=== PATIENT | female | born 1955 | race Caucasian/White ===

== ENCOUNTER 2017-12-06 22:35 | Inpatient (IN) | payer MEDICAID ==
[2017-12-06] MEDS: Sodium Chloride 0.9% 1,000 ML IV SCH (23:29)
[2017-12-07 00:28] LABS: ACETAMINOPHEN 0 ug/mL (10-30)
--- NOTE | 2017-12-07 00:44 | EDM.PDOC ---
ED HPI GENERAL MEDICAL PROBLEM - General Chief Complaint: Drug or Alcohol Abuse Stated Complaint: EN AMBULANCE Time Seen by Provider: 12/06/17 22:46 Source of Information: Reports: Family () History Limitations: Reports: Altered Mental Status - History of Present Illness INITIAL COMMENTS - FREE TEXT/NARRATIVE: The patient is brought to the ED by EMS. The patient's states the patient may be hallucinating. He states that he got home to find the patient looking through their herb cupbord. The patient was not aware that he was there. When he asked her what she was doing, she became angry at him. He then found that the patient was nearly burning something on the stove, and the patient was completely unaware of that, as well. When EMS arrived, they found the patient to be lethargic, with poor respiratory effort. Here in the ED, the patient is lethargic, but arousable to verbal stimuli. She is saturating 96% on room air. The patient's states that the patient was started on 2 new medications, hydrochlorothiazide and Klonopin 0.5 mg, about one week ago. The number of pills remaining in the Klonopin bottle is less than would be expected, suggesting that the patient may be taking her Klonopin in excess of that prescribed. The patient has a well-established history of alcoholism. By the history that the patient's provided, it sounds like the patient has alcoholic cirrhosis, and probably esophageal varices, as well. The patient's acknowledges that he is also a heavy drinker, and that there is always alcohol in the house. The states that he and his work different schedules, therefore he is not sure how much she drinks per day, or whether she drinks to excess regularly, but he suspects that she probably does. The patient's states that the patient entered into inpatient alcohol treatment for approximately one month in mid-2015, then states sober for proximal a 5 months, until around 2015, when she began drinking again, and has continued drinking ever since then. The patient's PCP is Joyce Parish. The patient's states that the patient sees a Psychological Operations (possible Kettle Coordinator) in [place], but he does not know that doctor's name. Treatments RECONCILER: Reports: Other (see below) Other Treatments RECONCILER: iv lock start by ambulance - Related Data Allergies Allergy/AdvReac Type Severity Reaction Status Date / Time nitrofurantoin Allergy Rash Verified 12/07/17 13:31 [From Macrobid] nitrofurantoin Allergy Rash Verified 12/07/17 13:31 macrocrystalline [From Macrobid] codeine AdvReac Upset Verified 12/08/17 11:36 Stomach Home Meds: Home Meds Folic Acid 1 mg PO DAILY 10/04/15 [History] Omeprazole 20 mg PO BIDAC 10/04/15 [History] Potassium Chloride 20 meq PO BID 10/04/15 [History] Venlafaxine HCl [Venlafaxine ER] 150 mg PO DAILY 10/04/15 [History] Aspirin 81 mg PO DAILY 12/07/17 [History] Betamethasone Dipropionate [Diprosone 0.05% Crm] 0 gm TOP BID PRN 12/07/17 [ History] Eszopiclone [Lunesta] 2 mg PO BEDTIME PRN 12/07/17 [History] Hydrochlorothiazide 25 mg PO DAILY 12/07/17 [History] Nadolol [Corgard] 40 mg PO DAILY 12/07/17 [History] Rifaximin [Xifaxan] 550 mg PO BID 12/07/17 [History] Triamcinolone Acetonide [Triamcinolone Acetonide 0.1% Crm] 15 gm .XX DAILY 12/07 [History] Azithromycin [Zithromax] 250 mg PO DAILY #4 ml 12/08/17 [Rx] Biotin/FA/Vit C/Vit B Complex [Nephrocaps] 1 tab PO DAILY #30 tablet 12/08/17 [ Rx] Lactulose [Cephulac] 30 gm PO DAILY #480 ml 12/08/17 [Rx] Magnesium Oxide 400 mg PO BID #60 tablet 12/08/17 [Rx] Nicotine [NTS] 1 each TD DAILY #30 patch.td24 12/08/17 [Rx] Sucralfate [Carafate] 1 gm PO QIDACANDBED #480 ml 12/08/17 [Rx] Thiamine [Vitamin B-1] 100 mg PO DAILY #30 tablet 12/08/17 [Rx] Past Medical History HEENT History: Reports: Cataract Cardiovascular History: Reports: Hypertension Gastrointestinal History: Reports: Cirrhosis (alcoholic), Pancreatitis, Other ( See Below) (Esophageal varices) Genitourinary History: Reports: Urinary Incontinence Psychiatric History: Reports: Addiction (alcohol), Anxiety Hematologic History: Reports: Anemia, Iron Deficiency - Past Surgical History GI Surgical History: Reports: Colonoscopy, EGD, Other (See Below) (Banding of esophageal varices. 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 - Physical Exam Exam: See Below Exam Limited By: Altered Mental Status General Appearance: No Apparent Distress, Thin, Other (No smell of alcohol notes ) Eye Exam: Bilateral Eye: Normal Inspection Ears: Normal External Exam, Hearing Grossly Normal Nose: Normal Inspection, No Blood Throat/Mouth: Normal Inspection, Normal Lips, Normal Voice, No Airway Compromise Head Exam: Atraumatic, Normocephalic Neck: Normal Inspection, Full Range of Motion Respiratory/Chest: No Respiratory Distress, Lungs Clear, Normal Breath Sounds ( minimal effort at deep breaths when asked), No Accessory Muscle Use Cardiovascular: Normal Peripheral Pulses, Regular Rate, Rhythm, No Edema, No Gallop, No JVD, No Murmur, No Rub GI/Abdominal: Normal Bowel Sounds, Soft, Non-Tender, No Organomegaly, No Distention, No Abnormal Bruit, No Mass (Female) Exam: Deferred Rectal (Female) Exam: Deferred Neuro Exam (Abbreviated): Other (Lethargic, but arousable to verbal stimuli. Nose her name, but perseverates her birthday when asked what day it is, what month it is, what year it is, currently. Moves all 4 extremities spontaneously.) Extremities: Normal Inspection, Normal Range of Motion, No Pedal Edema, Normal Capillary Refill Psychiatric: Other (Unable to assess) Skin Exam: Warm, Dry, Intact, Normal Color, No Rash Course - Vital Signs Last Recorded V/S: Last Vital Signs Temp 36.8 C 12/08/17 12:04 Pulse 73 12/08/17 12:04 Resp 16 12/08/17 12:04 BP 116/83 12/08/17 12:04 Pulse Ox 99 12/08/17 12:04 - Orders/Labs/Meds Labs: Laboratory Tests 12/06/17 12/06/17 12/06/17 Range/Units 23:21 23:40 23:40 WBC 5.16 (3.98-10.04) K/mm3 RBC 4.14 (3.98-5.22) M/mm3 Hgb 14.1 (11.2-15.7) gm/L Hct 41.0 (34.1-44.9) % MCV 99.0 H (79.4-94.8) fl MCH 34.1 H (25.6-32.2) pg MCHC 34.4 (32.2-35.5) g/dl RDW Std Deviation 46.4 H (36.4-46.3) fL Plt Count 120 L (182-369) K/mm3 MPV 10.5 (9.4-12.3) fl Neutrophils % (Manual) 60 (40-60) % Band Neutrophils % 0 (0-10) % Lymphocytes % (Manual) 25 (20-40) % Atypical Lymphs % 0 % Monocytes % (Manual) 10 (2-10) % Eosinophils % (Manual) 5 (0.7-5.8) % Basophils % (Manual) 0 L (0.1-1.2) Platelet Estimate Adequate Plt Morphology Comment Normal RBC Morph Comment Normal PT (8.0-13.0) SECONDS INR APTT (22-36) SECONDS Puncture Site Lt radial ABG pH 7.47 H (7.35-7.45) ABG pCO2 27.2 L (35.0-45.0) mmHg ABG pO2 65.0 L (80.0-100.0) mmHg ABG HCO3 19.3 L (22.0-26.0) meq/L ABG O2 Saturation 94.2 L (96.0-97.0) % ABG Base Excess -2.7 L (-2-2.0) Reuben Test Positive Sodium 136 (136-145) mEq/L Potassium 3.6 (3.5-5.1) mEq/L Chloride 104 (98-107) mEq/L Carbon Dioxide 21 (21-32) mEq/L Anion Gap 14.6 (5-15) BUN 15 (7-18) mg/dL Creatinine 0.8 (0.55-1.02) mg/dL Est Cr Clr Drug Dosing 59.75 mL/min Estimated GFR (MDRD) > 60 (>60) mL/min BUN/Creatinine Ratio 18.8 H (14-18) Glucose 107 (80-115) mg/dL Serum Osmolality 289 (280-300) mosm/kg Lactic Acid (0.4-2.0) mmol/L Calcium 9.9 (8.5-10.1) mg/dL Magnesium 1.1 L (1.8-2.4) mg/dl Total Bilirubin 1.7 H (0.2-1.0) mg/dL AST 67 H (15-37) U/L ALT 59 (14-59) U/L Alkaline Phosphatase 134 H (46-116) U/L Ammonia (11-32) umol/L Troponin I < 0.017 (0.00-0.056) ng/mL Total Protein 7.9 (6.4-8.2) g/dl Albumin 3.6 (3.4-5.0) g/dl Globulin 4.3 gm/dL Albumin/Globulin Ratio 0.8 L (1-2) Lipase 186 (73-393) U/L TSH 3rd Generation 1.089 (0.358-3.74) uIU/mL Urine Color (Yellow) Urine Appearance (Clear) Urine pH (5.0-8.0) Ur Specific [place] (1.005-1.030) Urine Protein (Negative) Urine Glucose (UA) (Negative) Urine Ketones (Negative) Urine Occult Blood (Negative) Urine Nitrite (Negative) Urine Bilirubin (Negative) Urine Urobilinogen (0.2-1.0) Ur Leukocyte Esterase (Negative) Urine RBC (0-5) /hpf Urine WBC (0-5) /hpf Ur Epithelial Cells (0-5) /hpf Urine Bacteria (FEW) /hpf Hyaline Casts (0-5) /lpf Urine Mucus (FEW) /hpf Salicylates (2.8-20) mg/dL Urine Opiates Screen (NEGATIVE) Ur Buprenorphine Scrn (NEGATIVE) Ur Oxycodone Screen (NEGATIVE) Urine Methadone Screen (NEGATIVE) Ur Propoxyphene Screen (NEGATIVE) Acetaminophen 0 L (10-30) ug/mL Ur Barbiturates Screen (NEGATIVE) Ur Tricyclics Screen (NEGATIVE) Ur Phencyclidine Scrn (NEGATIVE) Ur Amphetamine Screen (NEGATIVE) U Methamphetamines Scrn (NEGATIVE) U Benzodiazepines Scrn (NEGATIVE) U Cocaine Metab Screen (NEGATIVE) U Marijuana (THC) Screen (NEGATIVE) Ethyl Alcohol 0.00 (0.00) gm% 12/06/17 12/06/17 12/06/17 Range/Units 23:40 23:40 23:40 WBC (3.98-10.04) K/mm3 RBC (3.98-5.22) M/mm3 Hgb (11.2-15.7) gm/L Hct (34.1-44.9) % MCV (79.4-94.8) fl MCH (25.6-32.2) pg MCHC (32.2-35.5) g/dl RDW Std Deviation (36.4-46.3) fL Plt Count (182-369) K/mm3 MPV (9.4-12.3) fl Neutrophils % (Manual) (40-60) % Band Neutrophils % (0-10) % Lymphocytes % (Manual) (20-40) % Atypical Lymphs % % Monocytes % (Manual) (2-10) % Eosinophils % (Manual) (0.7-5.8) % Basophils % (Manual) (0.1-1.2) Platelet Estimate Plt Morphology Comment RBC Morph Comment PT 11.7 (8.0-13.0) SECONDS INR 1.09 APTT 29 (22-36) SECONDS Puncture Site ABG pH (7.35-7.45) ABG pCO2 (35.0-45.0) mmHg ABG pO2 (80.0-100.0) mmHg ABG HCO3 (22.0-26.0) meq/L ABG O2 Saturation (96.0-97.0) % ABG Base Excess (-2-2.0) Reuben Test Sodium (136-145) mEq/L Potassium (3.5-5.1) mEq/L Chloride (98-107) mEq/L Carbon Dioxide (21-32) mEq/L Anion Gap (5-15) BUN (7-18) mg/dL Creatinine (0.55-1.02) mg/dL Est Cr Clr Drug Dosing mL/min Estimated GFR (MDRD) (>60) mL/min BUN/Creatinine Ratio (14-18) Glucose (80-115) mg/dL Serum Osmolality (280-300) mosm/kg Lactic Acid 1.4 (0.4-2.0) mmol/L Calcium (8.5-10.1) mg/dL Magnesium (1.8-2.4) mg/dl Total Bilirubin (0.2-1.0) mg/dL AST (15-37) U/L ALT (14-59) U/L Alkaline Phosphatase (46-116) U/L Ammonia (11-32) umol/L Troponin I (0.00-0.056) ng/mL Total Protein (6.4-8.2) g/dl Albumin (3.4-5.0) g/dl Globulin gm/dL Albumin/Globulin Ratio (1-2) Lipase (73-393) U/L TSH 3rd Generation (0.358-3.74) uIU/mL Urine Color (Yellow) Urine Appearance (Clear) Urine pH (5.0-8.0) Ur Specific [place] (1.005-1.030) Urine Protein (Negative) Urine Glucose (UA) (Negative) Urine Ketones (Negative) Urine Occult Blood (Negative) Urine Nitrite (Negative) Urine Bilirubin (Negative) Urine Urobilinogen (0.2-1.0) Ur Leukocyte Esterase (Negative) Urine RBC (0-5) /hpf Urine WBC (0-5) /hpf Ur Epithelial Cells (0-5) /hpf Urine Bacteria (FEW) /hpf Hyaline Casts (0-5) /lpf Urine Mucus (FEW) /hpf Salicylates < 0.2 L (2.8-20) mg/dL Urine Opiates Screen (NEGATIVE) Ur Buprenorphine Scrn (NEGATIVE) Ur Oxycodone Screen (NEGATIVE) Urine Methadone Screen (NEGATIVE) Ur Propoxyphene Screen (NEGATIVE) Acetaminophen (10-30) ug/mL Ur Barbiturates Screen (NEGATIVE) Ur Tricyclics Screen (NEGATIVE) Ur Phencyclidine Scrn (NEGATIVE) Ur Amphetamine Screen (NEGATIVE) U Methamphetamines Scrn (NEGATIVE) U Benzodiazepines Scrn (NEGATIVE) U Cocaine Metab Screen (NEGATIVE) U Marijuana (THC) Screen (NEGATIVE) Ethyl Alcohol (0.00) gm% 12/06/17 12/06/17 12/07/17 Range/Units 23:49 23:53 01:10 WBC (3.98-10.04) K/mm3 RBC (3.98-5.22) M/mm3 Hgb (11.2-15.7) gm/L Hct (34.1-44.9) % MCV (79.4-94.8) fl MCH (25.6-32.2) pg MCHC (32.2-35.5) g/dl RDW Std Deviation (36.4-46.3) fL Plt Count (182-369) K/mm3 MPV (9.4-12.3) fl Neutrophils % (Manual) (40-60) % Band Neutrophils % (0-10) % Lymphocytes % (Manual) (20-40) % Atypical Lymphs % % Monocytes % (Manual) (2-10) % Eosinophils % (Manual) (0.7-5.8) % Basophils % (Manual) (0.1-1.2) Platelet Estimate Plt Morphology Comment RBC Morph Comment PT (8.0-13.0) SECONDS INR APTT (22-36) SECONDS Puncture Site ABG pH (7.35-7.45) ABG pCO2 (35.0-45.0) mmHg ABG pO2 (80.0-100.0) mmHg ABG HCO3 (22.0-26.0) meq/L ABG O2 Saturation (96.0-97.0) % ABG Base Excess (-2-2.0) Reuben Test Sodium (136-145) mEq/L Potassium (3.5-5.1) mEq/L Chloride (98-107) mEq/L Carbon Dioxide (21-32) mEq/L Anion Gap (5-15) BUN (7-18) mg/dL Creatinine (0.55-1.02) mg/dL Est Cr Clr Drug Dosing mL/min Estimated GFR (MDRD) (>60) mL/min BUN/Creatinine Ratio (14-18) Glucose (80-115) mg/dL Serum Osmolality (280-300) mosm/kg Lactic Acid (0.4-2.0) mmol/L Calcium (8.5-10.1) mg/dL Magnesium (1.8-2.4) mg/dl Total Bilirubin (0.2-1.0) mg/dL AST (15-37) U/L ALT (14-59) U/L Alkaline Phosphatase (46-116) U/L Ammonia 83 H (11-32) umol/L Troponin I (0.00-0.056) ng/mL Total Protein (6.4-8.2) g/dl Albumin (3.4-5.0) g/dl Globulin gm/dL Albumin/Globulin Ratio (1-2) Lipase (73-393) U/L TSH 3rd Generation (0.358-3.74) uIU/mL Urine Color Yellow (Yellow) Urine Appearance Clear (Clear) Urine pH 7.0 (5.0-8.0) Ur Specific [place] 1.020 (1.005-1.030) Urine Protein Negative (Negative) Urine Glucose (UA) Negative (Negative) Urine Ketones Negative (Negative) Urine Occult Blood Negative (Negative) Urine Nitrite Negative (Negative) Urine Bilirubin Negative (Negative) Urine Urobilinogen 1.0 (0.2-1.0) Ur Leukocyte Esterase Trace H (Negative) Urine RBC 0-5 (0-5) /hpf Urine WBC 0-5 (0-5) /hpf Ur Epithelial Cells 0-5 (0-5) /hpf Urine Bacteria Occasional (FEW) /hpf Hyaline Casts 0-5 (0-5) /lpf Urine Mucus Not seen (FEW) /hpf Salicylates (2.8-20) mg/dL Urine Opiates Screen Negative (NEGATIVE) Ur Buprenorphine Scrn Negative (NEGATIVE) Ur Oxycodone Screen Negative (NEGATIVE) Urine Methadone Screen Negative (NEGATIVE) Ur Propoxyphene Screen Negative (NEGATIVE) Acetaminophen (10-30) ug/mL Ur Barbiturates Screen Negative (NEGATIVE) Ur Tricyclics Screen Negative (NEGATIVE) Ur Phencyclidine Scrn Negative (NEGATIVE) Ur Amphetamine Screen Negative (NEGATIVE) U Methamphetamines Scrn Negative (NEGATIVE) U Benzodiazepines Scrn Negative (NEGATIVE) U Cocaine Metab Screen Negative (NEGATIVE) U Marijuana (THC) Screen Negative (NEGATIVE) Ethyl Alcohol (0.00) gm% Meds: Medications Discontinued Medications Generic Name Dose Route Start Last Admin Trade Name Freq PRN Reason Stop Dose Admin Albuterol/Ipratropium 3 ml 12/07/17 09:49 Duoneb 3.0-0.5 Mg/3 Ml NEB Q4H PRN Shortness Of Breath/wheezing Azithromycin 500 mg 12/08/17 09:00 12/08/17 09:03 Zithromax PO 500 mg DAILY BIANCA Administration Enoxaparin Sodium 30 mg 12/07/17 08:45 12/07/17 09:37 Lovenox SUBCUT 30 mg Q24H BIANCA Administration Enoxaparin Sodium 40 mg 12/08/17 09:00 12/08/17 09:03 Lovenox SUBCUT 40 mg DAILY BIANCA Administration Folic Acid 1 mg 12/07/17 10:00 12/08/17 09:03 Folic Acid PO 1 mg DAILY BIANCA Administration Hydralazine HCl 20 mg 12/07/17 10:00 Apresoline IVPUSH Q6H PRN Hypertension Hydrochlorothiazide 25 mg 12/08/17 09:00 12/08/17 09:02 Hydrochlorothiazide PO 25 mg DAILY BIANCA Administration Sodium Chloride 1,000 mls @ 150 mls/hr 12/06/17 23:30 12/07/17 06:10 Normal Saline IV Infused ASDIRECTED BIANCA Infusion Magnesium Sulfate 2 gm/ Premix 50 mls @ 50 mls/hr 12/07/17 00:50 12/07/17 01: 11 IV 12/07/17 01:49 50 mls/hr ONETIME ONE Administration Magnesium Sulfate 2 gm/ Premix 50 mls @ 25 mls/hr 12/07/17 03:25 12/07/17 10: 11 IV 12/07/17 05:24 Not Given ONETIME ONE Magnesium Sulfate Confirm 12/07/17 03:32 12/07/17 10:11 Magnesium Sulfate 2 Gm In Water 50 Ml Administered 12/07/17 03:33 Not Given Dose 50 mls @ as directed .ROUTE .STK-MED ONE Sodium Chloride 1,000 mls @ 75 mls/hr 12/07/17 10:00 Normal Saline IV ASDIRECTED BIANCA Sodium Chloride 1,000 mls @ 35 mls/hr 12/07/17 10:00 12/07/17 17:41 Normal Saline IV 35 mls/hr ASDIRECTED BIANCA Administration Magnesium Sulfate 2 gm/ Premix 50 mls @ 25 mls/hr 12/08/17 06:45 12/08/17 09: 11 IV 12/08/17 08:44 25 mls/hr Q1H BIANCA Administration Influenza Virus Vaccine 1 each 12/08/17 11:29 12/08/17 13:51 Pharmacy To Dose - Influenza Vaccine IM 12/08/17 11:30 Not Given ONETIME ONE Influenza Virus Vaccine 60 mcg 12/08/17 12:15 12/08/17 11:54 Flulaval Quad [id number] IM 12/08/17 12:16 60 mcg .ONCE ONE Administration Lactulose 30 gm 12/07/17 09:00 12/08/17 09:03 Cephulac PO 30 gm BID BIANCA Administration Lorazepam 0 mg 12/07/17 09:54 Ativan IVPUSH Q4H PRN withdrawl Protocol Lorazepam 2 mg 12/07/17 10:00 Ativan IVPUSH Q4H PRN Seizures Magnesium Oxide 800 mg 12/08/17 21:00 Magnesium Oxide PO DAILY [facility] Miscellaneous Information 0 ea 12/08/17 11:30 12/08/17 13:52 Remove Patch TRDERM Not Given Q24H [facility] Nadolol 20 mg 12/08/17 09:00 12/08/17 09:04 Naldol PO 20 mg DAILY BIAN[facility] Administration Nicotine 21 mg 12/07/17 11:30 12/08/17 13:51 Habitrol TRDERM Not Given Q24H [facility] Ondansetron HCl 4 mg 12/07/17 09:49 Zofran Odt PO Q4H PRN nausea, able to take PO Ondansetron HCl 4 mg 12/07/17 09:49 Zofran IV Q4H PRN Nausea/Vomiting Oxycodone HCl 5 mg 12/07/17 09:49 Oxycodone PO Q4H PRN Pain (moderate 4-6) Pantoprazole Sodium 40 mg 12/07/17 09:00 12/08/17 09:02 Protonix PO 40 mg DAILY BIANCA Administration Pantoprazole Sodium 40 mg 12/07/17 10:00 12/08/17 09:57 Protonix PO Not Given DAILY [facility] Potassium Chloride 40 meq 12/07/17 17:00 12/07/17 17:38 Klor-Con M20 PO 12/07/17 17:01 40 meq ONETIME ONE Administration Potassium Chloride 20 meq 12/08/17 09:00 12/08/17 09:02 Klor-Con M20 PO 20 meq BID BIANCA Administration Rifaximin 550 mg 12/07/17 21:00 12/08/17 09:02 Xifaxan PO 550 mg BID [facility] Administration Sucralfate 1 gm 12/07/17 11:00 12/08/17 11:53 Carafate PO 1 gm QIDACANDBED [facility] Administration Temazepam 7.5 mg 12/07/17 09:49 Restoril PO BEDTIME PRN Sleep Thiamine HCl 100 mg 12/07/17 10:00 12/08/17 09:02 Vitamin B-1 PO 100 mg DAILY BIANCA Administration Tramadol HCl 50 mg 12/07/17 09:57 Ultram PO Q4H PRN Pain Venlafaxine HCl 150 mg 12/07/17 10:00 12/08/17 09:01 Effexor Xr PO 150 mg DAILY [facility] Administration Vitamin B Complex/Vit C/Folic Acid 1 tab 12/07/17 10:00 12/08/17 09:01 Nephrocaps PO 1 tab DAILY [facility] Administration - Re-Assessments/Exams Free Text/Narrative Re-Assessment/Exam: 12/07/17 00:24 Portable chest radiograph appears to be grossly unremarkable. Cardiac silhouette is within normal limits. No pulmonary vascular congestion. No pleural effusions. No focal infiltrate. No pneumothorax. Hyperinflation likely. Lateral breast implants noted. Formal read per the Radiologist pending. 12/07/17 00:40 CT of the head without contrast is read by [facility] as "No acute findings." 12/07/17 00:56 The urine osmolality and microscopic portion of the urinalysis are still pending. The patient's alcohol level is zero. Neither methanol nor ethylene glycol ingestion are suspected, as the patient does not have a high anion gap. Isopropyl alcohol poisoning is not suspected, as she does not have ketonuria. The patient's ABG demonstrates an [id number] respiratory alkalosis versus mixed respiratory alkalosis and metabolic acidosis, but salicylate overdose is not suspected, as the patient's salicylate level is undetectable. The patient's urine drug screen is negative, including for benzodiazepines, however, based on history, the patient is likely taking her prescribed Klonopin in excess. Klonopin does not show up on the benzodiazepine urine drug screen, therefore this is still likely. The patient's magnesium level returned low at 1.1. I have ordered a 2 g Mg- rider. 12/07/17 01:20 The patient's urine osmolality is normal at 289, and the urinalysis does not report oxalate crystals. 12/07/17 01:37 The patient's ammonia level is elevated at 83, indicating that hepatic encephalopathy may be playing at least some role in the patient's altered mental status. I don't believe that the patient is fit to go home. I would like to admit her to the hospital for altered mental status, likely clonazepam excess, hepatic encephalopathy, and hypomagnesemia. 12/07/17 0:[address] Bass at 01:45. She agrees to admit the patient to the medical floor. Departure - Departure Time of Disposition: 01:50 Disposition: Admitted As Inpatient 67 Clinical Impression: Hepatic encephalopathy, Hypomagnesemia Accidental clonazepam overdose Qualifiers: Encounter type: initial encounter Qualified Code(s): T42.4X1A - Poisoning by benzodiazepines, accidental (unintentional), initial encounter - Discharge Information
[2017-12-07] MEDS ORDERED: Magnesium Sulfate/Water 2 GM in Premix Bag 1 BAG IV ONE ×2 (00:50→03:25)
[2017-12-07] MEDS ORDERED: Magnesium Sulfate/Water 50 ML ONE (03:32)
--- NOTE | 2017-12-07 07:15 | CT ---
Head CT Technique: Multiple axial sections through the brain were obtained. Comparison: Prior head CT exam of 10/04/15. Findings: Ventricles along with basal cisterns and sulci over the convexities are mildly prominent. No abnormal parenchymal densities are seen. No evidence of intracranial hemorrhage. No midline shift or mass effect is seen. Large pineal calcification is seen which is stable and is felt to be incidental. Bone window settings were reviewed which show the visualized sinuses to appear clear. No acute calvarial abnormality is identified. Impression: 1. Incidental findings. Nothing acute is seen on noncontrast head CT study. Diagnostic code #2 I agree with preliminary report issued by [facility] ([facility] preliminary report dictated on 12/07/17, 1:18 AM Central Time)
--- NOTE | 2017-12-07 07:15 | CR ---
Chest: Portable view of the chest was obtained. Comparison: Prior chest x-ray of 10/04/[address] of 10/04/15. Increased density is identified overlying both lower lungs compatible with overlying density from calcified breast prosthesis. Lungs are clear with no acute parenchymal change. Heart size and mediastinum are normal. Bony structures are osteopenic. Impression: 1. Nothing acute is seen on portable chest x-ray. Diagnostic code #2
[2017-12-07] MEDS ORDERED: Enoxaparin 30 MG/0.3 ML Syringe SUBCUT SCH (08:45)
[2017-12-07] MEDS: Pantoprazole 40 MG Tab.CR PO SCH ×2 (09:37→12:15)
[2017-12-07] MEDS: Lactulose Soln 10 GM/15 ML 30 ML UD Cup PO SCH ×2 (09:37→22:03)
[2017-12-07] MEDS: Sodium Chloride 0.9% 1,000 ML IV SCH (09:42)
--- NOTE | 2017-12-07 09:44 | PCM.HP ---
H&P History of Present Illness - General Date of Service: 12/07/17 Admit Problem/Dx: Admission Diagnosis/Problem Admission Diagnosis/Problem Hepatic encephalopathy Source of Information: Patient, Other (ED notes) History Limitations: Reports: Altered Mental Status - History of Present Illness Initial Comments - Free Text/Narative: Halina is a 62-year-old female patient who presented to the emergency room last evening for altered mental status. Ammonia level was elevated and she was found to be with hepatic encephalopathy. She was also found to have electrolyte abnormalities of hypomagnesemia and hypokalemia. She and her tell me that she has felt ill or not herself for at least 2 weeks. She states she has been mostly in bed for the past 2 weeks and she has been "so sleepy"and generally weak. She does take Klonopin at least twice a day on a regular basis and has been continuing to take this despite her altered mental status for the past 2 weeks. Her reports that yesterday was the worst and she was not as responsive so she came for evaluation in the emergency department. Patient reports she has not really been able to work for the last 2 weeks. 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 She does have long-standing history of alcoholic liver disease. Admits to me that she drinks 5-7 [employer] sevens, large cups, every day for years. She does have a GI specialist in [place] but she has not seen him for quite some time, does not have regular follow-up. She states she has had a liver biopsy 2 years ago with them. She also had a EGD with banding of esophageal varices around 2 years ago. She reports she supposed to have repeat EGD but has not done so yet. She does take rifaximin daily but does not take lactulose she has not ever taken lactulose by her report or that she remembers. She has been anemic in the past found due to the esophageal varices. She's not noted any melanotic stool no nausea, vomiting, diarrhea, no hematemesis or hematochezia. 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 She is very thin almost cachectic. She tells me she has been to inpatient treatment once around 2 years ago in [place] and has also done outpatient treatment for her alcoholism. She also smokes half a pack of cigarettes per day for many years. PCP is Joyce DORADO with [facility] in [place]. Patient is full CODE STATUS. Onset of Symptoms: Reports: Gradual Duration of Symptoms: Reports: Week(s): (2) - Related Data Allergies/Adverse Reactions: Allergies Allergy/AdvReac Type Severity Reaction Status Date / Time codeine Allergy Upset Verified 12/07/17 13:31 Stomach nitrofurantoin Allergy Rash Verified 12/07/17 13:31 [From Macrobid] nitrofurantoin Allergy Rash Verified 12/07/17 13:31 macrocrystalline [From Macrobid] Home Medications: Home Meds Folic Acid 1 mg PO DAILY 10/04/15 [History] Omeprazole 20 mg PO BIDAC 10/04/15 [History] Potassium Chloride 20 meq PO BID 10/04/15 [History] Venlafaxine HCl [Venlafaxine ER] 150 mg PO DAILY 10/04/15 [History] Aspirin 81 mg PO DAILY 12/07/17 [History] Betamethasone Dipropionate [Diprosone 0.05% Crm] 0 gm TOP BID PRN 12/07/17 [ History] ClonazePAM [KlonoPIN] 0.5 mg PO DAILY 12/07/17 [History] ClonazePAM [KlonoPIN] 1 mg PO DAILY 12/07/17 [History] Eszopiclone [Lunesta] 2 mg PO BEDTIME PRN 12/07/17 [History] Hydrochlorothiazide 25 mg PO DAILY 12/07/17 [History] Nadolol [Corgard] 40 mg PO DAILY 12/07/17 [History] Rifaximin [Xifaxan] 550 mg PO BID 12/07/17 [History] Triamcinolone Acetonide [Triamcinolone Acetonide 0.1% Crm] 15 gm .XX DAILY 12/07 [History] Past Medical History HEENT History: Reports: Cataract Cardiovascular History: Reports: Hypertension Gastrointestinal History: Reports: Gastritis, Pancreatitis Other Gastrointestinal History: Alcoholic liver disease. Esophageal varices with banding - 2016 Genitourinary History: Reports: Urinary Incontinence Psychiatric History: Reports: Addiction (alcohol, tobacco), Anxiety Hematologic History: Reports: Anemia, Iron Deficiency - Past Surgical History GI Surgical History: Reports: Colonoscopy, Other (See Below) (EGD with banding of esophageal barices- 2016) Social & Family History - Tobacco Use Smoking Status *Q: Current Every Day Smoker Tobacco Use Within Last Twelve Months: Cigarettes Years of Tobacco use: 40 Packs/Tins Daily: 0.5 Smoking Cessation Information Provided To Patient: Yes - Caffeine Use Caffeine Use: Reports: Coffee, Tea - Alcohol Use Days Per Week of Alcohol Use: 7 Number of Drinks Per Day: 8 Total Drinks Per Week: 56 Alcohol Use in Last Twelve Months: Yes Alcohol Use Frequency: Daily Alcohol Use Comment: Has been to inpatient treatment in 2016 in [place]. Has tried outpatient treatment also - Recreational Drug Use Recreational Drug Use: No - Living Situation & Occupation Living situation: Reports: , with Spouse H&P Review of Systems - Review of Systems: Review Of Systems: See Below General: Reports: Malaise, Weakness, Fatigue, Decreased Appetite. Denies: Fever , Chills HEENT: Reports: No Symptoms Pulmonary: Reports: No Symptoms, Cough (has chronic smokers cough) Cardiovascular: Reports: No Symptoms. Denies: Chest Pain, Palpitations, Dyspnea on Exertion Gastrointestinal: Reports: No Symptoms, Decreased Appetite. Denies: Abdominal Pain, Black Stool, Bloody Stool, Constipation, Diarrhea, Hematemesis, Hematochezia, Melena, Nausea, Vomiting Genitourinary: Reports: No Symptoms Musculoskeletal: Reports: Other (generalized muscle weakness) Psychiatric: Reports: Confusion Neurological: Reports: Confusion, Headache, Weakness Exam - Exam Exam: See Below - Vital Signs Vital Signs: Last Vital Signs Temp 97.4 F 12/06/17 22:42 Pulse 88 12/06/17 22:42 Resp 12 12/06/17 22:42 BP 169/95 H 12/06/17 22:42 Pulse Ox 96 12/06/17 22:42 Weight: 113 lb - Exam Quality Assessment: DVT Prophylaxis General: Alert, Oriented (x3), Cooperative HEENT: Conjunctiva Clear, EOMI, Hearing Intact, Mucosa Moist & [place], Pupils Equal, Pupils Reactive, PERRLA. No: Scleral Icterus Neck: Supple Lungs: Clear to Auscultation, Normal Respiratory Effort, Decreased Breath Sounds (mid to lower lobes) Cardiovascular: Regular Rate, Regular Rhythm, Normal S1, Normal S2 GI/Abdominal Exam: Normal Bowel Sounds, Soft, Non-Tender, No Distention ( minimal to upper abdomen). No: No Abnormal Bruit, No Mass, Guarding, Rigid, Rebound, Tender (Female) Exam: Deferred Rectal (Female) Exam: Deferred Extremities: No Pedal Edema, Normal Capillary Refill, Other (thin and with muscle wasting to extremities) Peripheral Pulses: 1+: Dorsalis Pedis (L), Dorsalis Pedis (R) Skin: Warm, Dry Neuro Extensive - Mental Status: Alert, Oriented x3, Normal Mood/Affect ( converses well, good eye contact), Normal Cognition. No: Memory Intact (short term memory of the last 2 weeks is poor) Psychiatric: Alert, Normal Affect, Normal Mood - Patient Data Lab Results Last 24 hrs: Laboratory Results - last 24 hr 12/06/17 12/06/17 12/06/17 Range/Units 23:21 23:40 23:40 WBC 5.16 (3.98-10.04) K/mm3 RBC 4.14 (3.98-5.22) M/mm3 Hgb 14.1 (11.2-15.7) gm/L Hct 41.0 (34.1-44.9) % MCV 99.0 H (79.4-94.8) fl MCH 34.1 H (25.6-32.2) pg MCHC 34.4 (32.2-35.5) g/dl RDW Std Deviation 46.4 H (36.4-46.3) fL Plt Count 120 L (182-369) K/mm3 MPV 10.5 (9.4-12.3) fl Neutrophils % (Manual) 60 (40-60) % Band Neutrophils % 0 (0-10) % Lymphocytes % (Manual) 25 (20-40) % Atypical Lymphs % 0 % Monocytes % (Manual) 10 (2-10) % Eosinophils % (Manual) 5 (0.7-5.8) % Basophils % (Manual) 0 L (0.1-1.2) Platelet Estimate Adequate Plt Morphology Comment Normal RBC Morph Comment Normal PT (8.0-13.0) SECONDS INR APTT (22-36) SECONDS Puncture Site Lt radial ABG pH 7.47 H (7.35-7.45) ABG pCO2 27.2 L (35.0-45.0) mmHg ABG pO2 65.0 L (80.0-100.0) mmHg ABG HCO3 19.3 L (22.0-26.0) meq/L ABG O2 Saturation 94.2 L (96.0-97.0) % ABG Base Excess -2.7 L (-2-2.0) Reuben Test Positive Sodium 136 (136-145) mEq/L Potassium 3.6 (3.5-5.1) mEq/L Chloride 104 (98-107) mEq/L Carbon Dioxide 21 (21-32) mEq/L Anion Gap 14.6 (5-15) BUN 15 (7-18) mg/dL Creatinine 0.8 (0.55-1.02) mg/dL Est Cr Clr Drug Dosing 59.75 mL/min Estimated GFR (MDRD) > 60 (>60) mL/min BUN/Creatinine Ratio 18.8 H (14-18) Glucose 107 (80-115) mg/dL Serum Osmolality 289 (280-300) mosm/kg Lactic Acid (0.4-2.0) mmol/L Calcium 9.9 (8.5-10.1) mg/dL Magnesium 1.1 L (1.8-2.4) mg/dl Total Bilirubin 1.7 H (0.2-1.0) mg/dL AST 67 H (15-37) U/L ALT 59 (14-59) U/L Alkaline Phosphatase 134 H (46-116) U/L Ammonia (11-32) umol/L Troponin I < 0.017 (0.00-0.056) ng/mL Total Protein 7.9 (6.4-8.2) g/dl Albumin 3.6 (3.4-5.0) g/dl Globulin 4.3 gm/dL Albumin/Globulin Ratio 0.8 L (1-2) Lipase 186 (73-393) U/L TSH 3rd Generation 1.089 (0.358-3.74) uIU/mL Urine Color (Yellow) Urine Appearance (Clear) Urine pH (5.0-8.0) Ur Specific [place] (1.005-1.030) Urine Protein (Negative) Urine Glucose (UA) (Negative) Urine Ketones (Negative) Urine Occult Blood (Negative) Urine Nitrite (Negative) Urine Bilirubin (Negative) Urine Urobilinogen (0.2-1.0) Ur Leukocyte Esterase (Negative) Urine RBC (0-5) /hpf Urine WBC (0-5) /hpf Ur Epithelial Cells (0-5) /hpf Urine Bacteria (FEW) /hpf Hyaline Casts (0-5) /lpf Urine Mucus (FEW) /hpf Salicylates (2.8-20) mg/dL Urine Opiates Screen (NEGATIVE) Ur Buprenorphine Scrn (NEGATIVE) Ur Oxycodone Screen (NEGATIVE) Urine Methadone Screen (NEGATIVE) Ur Propoxyphene Screen (NEGATIVE) Acetaminophen 0 L (10-30) ug/mL Ur Barbiturates Screen (NEGATIVE) Ur Tricyclics Screen (NEGATIVE) Ur Phencyclidine Scrn (NEGATIVE) Ur Amphetamine Screen (NEGATIVE) U Methamphetamines Scrn (NEGATIVE) U Benzodiazepines Scrn (NEGATIVE) U Cocaine Metab Screen (NEGATIVE) U Marijuana (THC) Screen (NEGATIVE) Ethyl Alcohol 0.00 (0.00) gm% 12/06/17 12/06/17 12/06/17 Range/Units 23:40 23:40 23:40 WBC (3.98-10.04) K/mm3 RBC (3.98-5.22) M/mm3 Hgb (11.2-15.7) gm/L Hct (34.1-44.9) % MCV (79.4-94.8) fl MCH (25.6-32.2) pg MCHC (32.2-35.5) g/dl RDW Std Deviation (36.4-46.3) fL Plt Count (182-369) K/mm3 MPV (9.4-12.3) fl Neutrophils % (Manual) (40-60) % Band Neutrophils % (0-10) % Lymphocytes % (Manual) (20-40) % Atypical Lymphs % % Monocytes % (Manual) (2-10) % Eosinophils % (Manual) (0.7-5.8) % Basophils % (Manual) (0.1-1.2) Platelet Estimate Plt Morphology Comment RBC Morph Comment PT 11.7 (8.0-13.0) SECONDS INR 1.09 APTT 29 (22-36) SECONDS Puncture Site ABG pH (7.35-7.45) ABG pCO2 (35.0-45.0) mmHg ABG pO2 (80.0-100.0) mmHg ABG HCO3 (22.0-26.0) meq/L ABG O2 Saturation (96.0-97.0) % ABG Base Excess (-2-2.0) Reuben Test Sodium (136-145) mEq/L Potassium (3.5-5.1) mEq/L Chloride (98-107) mEq/L Carbon Dioxide (21-32) mEq/L Anion Gap (5-15) BUN (7-18) mg/dL Creatinine (0.55-1.02) mg/dL Est Cr Clr Drug Dosing mL/min Estimated GFR (MDRD) (>60) mL/min BUN/Creatinine Ratio (14-18) Glucose (80-115) mg/dL Serum Osmolality (280-300) mosm/kg Lactic Acid 1.4 (0.4-2.0) mmol/L Calcium (8.5-10.1) mg/dL Magnesium (1.8-2.4) mg/dl Total Bilirubin (0.2-1.0) mg/dL AST (15-37) U/L ALT (14-59) U/L Alkaline Phosphatase (46-116) U/L Ammonia (11-32) umol/L Troponin I (0.00-0.056) ng/mL Total Protein (6.4-8.2) g/dl Albumin (3.4-5.0) g/dl Globulin gm/dL Albumin/Globulin Ratio (1-2) Lipase (73-393) U/L TSH 3rd Generation (0.358-3.74) uIU/mL Urine Color (Yellow) Urine Appearance (Clear) Urine pH (5.0-8.0) Ur Specific [place] (1.005-1.030) Urine Protein (Negative) Urine Glucose (UA) (Negative) Urine Ketones (Negative) Urine Occult Blood (Negative) Urine Nitrite (Negative) Urine Bilirubin (Negative) Urine Urobilinogen (0.2-1.0) Ur Leukocyte Esterase (Negative) Urine RBC (0-5) /hpf Urine WBC (0-5) /hpf Ur Epithelial Cells (0-5) /hpf Urine Bacteria (FEW) /hpf Hyaline Casts (0-5) /lpf Urine Mucus (FEW) /hpf Salicylates < 0.2 L (2.8-20) mg/dL Urine Opiates Screen (NEGATIVE) Ur Buprenorphine Scrn (NEGATIVE) Ur Oxycodone Screen (NEGATIVE) Urine Methadone Screen (NEGATIVE) Ur Propoxyphene Screen (NEGATIVE) Acetaminophen (10-30) ug/mL Ur Barbiturates Screen (NEGATIVE) Ur Tricyclics Screen (NEGATIVE) Ur Phencyclidine Scrn (NEGATIVE) Ur Amphetamine Screen (NEGATIVE) U Methamphetamines Scrn (NEGATIVE) U Benzodiazepines Scrn (NEGATIVE) U Cocaine Metab Screen (NEGATIVE) U Marijuana (THC) Screen (NEGATIVE) Ethyl Alcohol (0.00) gm% 12/06/17 12/06/17 12/07/17 Range/Units 23:49 23:53 01:10 WBC (3.98-10.04) K/mm3 RBC (3.98-5.22) M/mm3 Hgb (11.2-15.7) gm/L Hct (34.1-44.9) % MCV (79.4-94.8) fl MCH (25.6-32.2) pg MCHC (32.2-35.5) g/dl RDW Std Deviation (36.4-46.3) fL Plt Count (182-369) K/mm3 MPV (9.4-12.3) fl Neutrophils % (Manual) (40-60) % Band Neutrophils % (0-10) % Lymphocytes % (Manual) (20-40) % Atypical Lymphs % % Monocytes % (Manual) (2-10) % Eosinophils % (Manual) (0.7-5.8) % Basophils % (Manual) (0.1-1.2) Platelet Estimate Plt Morphology Comment RBC Morph Comment PT (8.0-13.0) SECONDS INR APTT (22-36) SECONDS Puncture Site ABG pH (7.35-7.45) ABG pCO2 (35.0-45.0) mmHg ABG pO2 (80.0-100.0) mmHg ABG HCO3 (22.0-26.0) meq/L ABG O2 Saturation (96.0-97.0) % ABG Base Excess (-2-2.0) Reuben Test Sodium (136-145) mEq/L Potassium (3.5-5.1) mEq/L Chloride (98-107) mEq/L Carbon Dioxide (21-32) mEq/L Anion Gap (5-15) BUN (7-18) mg/dL Creatinine (0.55-1.02) mg/dL Est Cr Clr Drug Dosing mL/min Estimated GFR (MDRD) (>60) mL/min BUN/Creatinine Ratio (14-18) Glucose (80-115) mg/dL Serum Osmolality (280-300) mosm/kg Lactic Acid (0.4-2.0) mmol/L Calcium (8.5-10.1) mg/dL Magnesium (1.8-2.4) mg/dl Total Bilirubin (0.2-1.0) mg/dL AST (15-37) U/L ALT (14-59) U/L Alkaline Phosphatase (46-116) U/L Ammonia 83 H (11-32) umol/L Troponin I (0.00-0.056) ng/mL Total Protein (6.4-8.2) g/dl Albumin (3.4-5.0) g/dl Globulin gm/dL Albumin/Globulin Ratio (1-2) Lipase (73-393) U/L TSH 3rd Generation (0.358-3.74) uIU/mL Urine Color Yellow (Yellow) Urine Appearance Clear (Clear) Urine pH 7.0 (5.0-8.0) Ur Specific [place] 1.020 (1.005-1.030) Urine Protein Negative (Negative) Urine Glucose (UA) Negative (Negative) Urine Ketones Negative (Negative) Urine Occult Blood Negative (Negative) Urine Nitrite Negative (Negative) Urine Bilirubin Negative (Negative) Urine Urobilinogen 1.0 (0.2-1.0) Ur Leukocyte Esterase Trace H (Negative) Urine RBC 0-5 (0-5) /hpf Urine WBC 0-5 (0-5) /hpf Ur Epithelial Cells 0-5 (0-5) /hpf Urine Bacteria Occasional (FEW) /hpf Hyaline Casts 0-5 (0-5) /lpf Urine Mucus Not seen (FEW) /hpf Salicylates (2.8-20) mg/dL Urine Opiates Screen Negative (NEGATIVE) Ur Buprenorphine Scrn Negative (NEGATIVE) Ur Oxycodone Screen Negative (NEGATIVE) Urine Methadone Screen Negative (NEGATIVE) Ur Propoxyphene Screen Negative (NEGATIVE) Acetaminophen (10-30) ug/mL Ur Barbiturates Screen Negative (NEGATIVE) Ur Tricyclics Screen Negative (NEGATIVE) Ur Phencyclidine Scrn Negative (NEGATIVE) Ur Amphetamine Screen Negative (NEGATIVE) U Methamphetamines Scrn Negative (NEGATIVE) U Benzodiazepines Scrn Negative (NEGATIVE) U Cocaine Metab Screen Negative (NEGATIVE) U Marijuana (THC) Screen Negative (NEGATIVE) Ethyl Alcohol (0.00) gm% Result Diagrams: 12/08/17 05:15 12/08/17 05:15 - Problem List (1) Hepatic encephalopathy SNOMED Code(s): 75201396 ICD Code: K72.90 - HEPATIC FAILURE, UNSPECIFIED WITHOUT COMA Status: Acute Priority: High Current Visit: Yes (2) Accidental clonazepam overdose SNOMED Code(s): 950685861 ICD Code: T42.4X1A - POISONING BY BENZODIAZEPINES, ACCIDENTAL, INIT Status : Acute Priority: High Current Visit: Yes Qualifiers: Encounter type: initial encounter Qualified Code(s): T42.4X1A - Poisoning by benzodiazepines, accidental (unintentional), initial encounter (3) Hypomagnesemia SNOMED Code(s): 443465730 ICD Code: E83.42 - HYPOMAGNESEMIA Status: Acute Priority: High Current Visit: Yes (4) Alcoholism SNOMED Code(s): 1334455 ICD Code: F10.20 - ALCOHOL DEPENDENCE, UNCOMPLICATED Status: Chronic Priority: High Current Visit: Yes (5) Liver disease due to alcohol SNOMED Code(s): 65094882 ICD Code: K70.9 - ALCOHOLIC LIVER DISEASE, UNSPECIFIED Status: Chronic Priority: Medium Current Visit: Yes Problem List Initiated/Reviewed/Updated: Yes Orders Last 24hrs: Active Orders 24 hr Category Date Time Status Admission Status [Patient Status] [ADT] Routine ADT 12/07/17 02:00 Active EKG Documentation Completion [RC] STAT Care 12/06/17 23:21 Active AMMONIA VENOUS [CHEM] Routine Lab 12/07/17 09:20 Received Enoxaparin [Lovenox] Med 12/07/17 08:45 Active 30 mg SUBCUT Q24H Lactulose [Cephulac] Med 12/07/17 09:00 Active 30 gm PO BID Pantoprazole [ProTONIX] Med 12/07/17 09:00 Active 40 mg PO DAILY Sodium Chloride 0.9% [Normal Saline] 1,000 ml Med 12/06/17 23:30 Active IV ASDIRECTED Medication Orders Enoxaparin Sodium (Lovenox) 30 mg SUBCUT Q24H [facility] Last Admin: 12/07/17 09:37 Dose: 30 mg Sodium Chloride (Normal Saline) 1,000 mls @ 150 mls/hr IV ASDIRECTED [facility] Last Infusion: 12/07/17 06:10 Dose: 150 mls/hr Admin: 12/06/17 23:29 Dose: 150 mls/hr Lactulose (Cephulac) 30 gm PO BID [facility] Last Admin: 12/07/17 09:37 Dose: 30 gm Pantoprazole Sodium (Protonix) 40 mg PO DAILY [facility] Last Admin: 12/07/17 09:37 Dose: 40 mg Assessment/Plan Comment:: I/P: Acute: Hepatic encephalopathy with AMS -Intermittent sedation and has been obtunded off and on for 2 weeks by patient and report; states she has been in bed for 2 weeks -Ammonia level --82-->79, suspect this is chronically elevated d/t liver disease -IVF -Lactulose -Cont/resume home meds for liver disease -Follow up with her GI specialist in [place] after discharge, she is unsure when she was last seen and is not seen on a scheduled/regular basis Alcoholic liver disease -As above---need GI f/up with regular f/up -Cont home meds -Follow daily labs Alcohol use/abuse/dependence -Drinks 5-7 large glasses of seagrem's 7 daily for years -She wishes outpatient treatment, has been to inpatient 2 years ago, was sober for 2-3 months -AA, Spiritual care consults placed -Psychiatry consult -CISTIVEN with ativan protocol Electrolyte abnormalities: hypokalemia/hypomagnesemia -Replete and follow with daily labs Question of clonazepam overdose -Hold all benzo's aside from CIWAA protocol -Believe most of this is due to hepatic encephalopathy Tobacco use/dependence -Smokes 1/2 ppd -Smoking cessation education -Nicotine patch Chronic: Alcoholic liver disease--as above Hx of esophageal varicies with banding- 2 years ago per patient report---needs GI f/up after discharge, states she was supposed to have repeat EGD to follow but has not done so as of yet Other: GI prophylax--cont omeprazole; does take carafate at home, will do this AC/HS here DVT prophylax PT/OT- ambulate CM/SW for assist with DC planning--OP alcohol treatment options. Likely dc in 24-48 hours PCP is ESTRADA Recinos with [facility] She is Full Code status.
[2017-12-07] MEDS ORDERED: Ondansetron 4 MG Tab.DIS PO PRN (09:49)
[2017-12-07] MEDS ORDERED: Temazepam 7.5 MG Cap PO PRN (09:49)
[2017-12-07] MEDS ORDERED: Ondansetron 4 MG/2 ML SDV IV PRN (09:49)
[2017-12-07] MEDS ORDERED: Albuterol/Ipratropium 3.0-0.5 MG/3 ML Neb Soln NEB PRN (09:49)
[2017-12-07] MEDS ORDERED: oxyCODONE 5 MG Tab PO PRN (09:49)
[2017-12-07] MEDS ORDERED: LORazepam 2 MG/ML SDV IVPUSH PRN ×2 (09:54→10:00)
[2017-12-07] MEDS ORDERED: traMADol 50 MG Tab PO PRN (09:57)
[2017-12-07] MEDS ORDERED: Sodium Chloride 0.9% 1,000 ML IV SCH ×2 (10:00)
[2017-12-07] MEDS ORDERED: hydrALAZINE 20 MG/ML SDV IVPUSH PRN (10:00)
[2017-12-07] MEDS: Venlafaxine 75 MG Cap.ER PO SCH (12:12)
[2017-12-07] MEDS: Folic Acid 1 MG Tab PO SCH (12:13)
[2017-12-07] MEDS: Sucralfate Suspension 1 GM/10 ML Cup PO SCH ×3 (12:13→22:03)
[2017-12-07] MEDS: Thiamine 100 MG Tab PO SCH (12:13)
[2017-12-07] MEDS: Nicotine 21 MG/24 Hr Patch TRDERM SCH (12:13)
[2017-12-07] MEDS: Biotin/Folic Acid/Vitamin C/Vitamin B Complex Tab PO SCH (12:13)
[2017-12-07] MEDS ORDERED: Potassium Chloride 20 MEQ Tab.ER PO ONE (17:00)
[2017-12-07] MEDS: Rifaximin 550 MG Tab PO SCH (22:03)
[2017-12-08] MEDS: Magnesium Sulfate/Water 2 GM in Premix Bag 1 BAG IV SCH ×2 (06:54→09:11)
[2017-12-08] MEDS: Sucralfate Suspension 1 GM/10 ML Cup PO SCH ×2 (06:55→11:53)
[2017-12-08] MEDS ORDERED: Magnesium Hydroxide 400 MG/5 ML Susp 30 ML Cup PO PRN (08:18)
--- NOTE | 2017-12-08 08:49 | PCM.DCSUM1 ---
Discharge Summary - Hospital Course Free Text/Narrative:: Halina is a 62-year-old female patient who presented to the emergency room last evening for altered mental status. Ammonia level was elevated and she was found to be with hepatic encephalopathy. She was also found to have electrolyte abnormalities of hypomagnesemia and hypokalemia. She and her tell me that she has felt ill or not herself for at least 2 weeks. She states she has been mostly in bed for the past 2 weeks and she has been "so sleepy"and generally weak. She does take Klonopin at least twice a day on a regular basis and has been continuing to take this despite her altered mental status for the past 2 weeks. Her reports that yesterday was the worst and she was not as responsive so she came for evaluation in the emergency department. Patient reports she has not really been able to work for the last 2 weeks. 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 She does have long-standing history of alcoholic liver disease. Admits to me that she drinks 5-7 [employer]'s sevens, large cups, every day for years. She does have a GI specialist in [place] but she has not seen him for quite some time, does not have regular follow-up. She states she has had a liver biopsy 2 years ago with them. She also had a EGD with banding of esophageal varices around 2 years ago. She reports she supposed to have repeat EGD but has not done so yet. She does take rifaximin daily but does not take lactulose she has not ever taken lactulose by her report or that she remembers. She has been anemic in the past found due to the esophageal varices. She's not noted any melanotic stool no nausea, vomiting, diarrhea, no hematemesis or hematochezia. 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 She is very thin almost cachectic. She tells me she has been to inpatient treatment once around 2 years ago in [place] and has also done outpatient treatment for her alcoholism. She also smokes half a pack of cigarettes per day for many years. PCP is Joyce DORADO with [facility] in [place]. Patient is full CODE STATUS. - Discharge Data Discharge Date: 12/08/17 Discharge Disposition: Home, Self-Care 01 Condition: Good - Discharge Diagnosis/Problem(s) (1) Hepatic encephalopathy SNOMED Code(s): 94265468 ICD Code: K72.90 - HEPATIC FAILURE, UNSPECIFIED WITHOUT COMA Status: Acute Priority: High Current Visit: Yes (2) Accidental clonazepam overdose SNOMED Code(s): 743455835 ICD Code: T42.4X1A - POISONING BY BENZODIAZEPINES, ACCIDENTAL, INIT Status : Acute Priority: High Current Visit: Yes Qualifiers: Encounter type: initial encounter Qualified Code(s): T42.4X1A - Poisoning by benzodiazepines, accidental (unintentional), initial encounter (3) Hypomagnesemia SNOMED Code(s): 762374037 ICD Code: E83.42 - HYPOMAGNESEMIA Status: Acute Priority: High Current Visit: Yes (4) Alcoholism SNOMED Code(s): 9049308 ICD Code: F10.20 - ALCOHOL DEPENDENCE, UNCOMPLICATED Status: Chronic Priority: High Current Visit: Yes (5) Liver disease due to alcohol SNOMED Code(s): 57256124 ICD Code: K70.9 - ALCOHOLIC LIVER DISEASE, UNSPECIFIED Status: Chronic Priority: Medium Current Visit: Yes (6) Mycoplasma infection SNOMED Code(s): 367576020 ICD Code: A49.3 - MYCOPLASMA INFECTION, UNSPECIFIED SITE Status: Acute Priority: High Current Visit: Yes - Patient Summary/Data Operative Procedure(s) Performed: None Complications: None Consults: Consultations 12/07/17 09:49 Consult to Case Management [CONS] Routine Consult to Subscription Crew Leader [CONS] Routine Consult to Lining Caser [CONS] Routine Consult to Spiritual Care [CONS] Routine OT Evaluation and Treatment [CONS] Routine PT Evaluation and Treatment [CONS] Routine 12/07/17 09:59 Consult for Substance Abuse [CONS] Routine Consult to Physician [CONS] Routine 12/07/17 13:19 Consult to Spiritual Care [CONS] Routine 12/07/17 13:21 Consult for Substance Abuse [CONS] Routine Labs Pending at D/C: None--recommend BMP and magnesium at follow up with PCP within one week Recommended Follow-up Testing/Procedures: Patient DC instructions: Tobacco cessation recommendations: [place] Quit Line: or TDD [phone]. [place] Quits: [phone] to enroll. [facility] Tobacco Prevention and Control Program: [phone]. Follow up with Outpatient Addiction Counselor as soon as possible Recommend AA Meetings Follow up with PCP, Joyce Parish within one week of discharge- recommend recheck of labs for magnesium and potassium at that time. Follow up with GI Specialist as soon as possible for recheck of liver disease Avoid alcohol Exercise 150 minutes per week to regain strength- slowly ease into/work up to this amount over time. Planned Operative Procedure(s) after DC: None Hospital Course: I/P: Acute: Hepatic encephalopathy with AMS -Intermittent sedation and has been obtunded off and on for 2 weeks by patient and report; states she has been in bed for 2 weeks -Ammonia level --82-->79, suspect this is chronically elevated d/t liver disease--->39 on day of DC -IVF---DC'd -Lactulose -Cont/resume home meds for liver disease -Follow up with her GI specialist in [place] after discharge, she is unsure when she was last seen and is not seen on a scheduled/regular basis -Infectious workup: + for mycoplasma; tx with PO zithromax x 5 days Alcoholic liver disease -As above---need GI f/up with regular f/up -Cont home meds -Follow daily labs Alcohol use/abuse/dependence -Drinks 5-7 large glasses of seagrem's 7 daily for years -She wishes outpatient treatment, has been to inpatient 2 years ago, was sober for 2-3 months -AA, Spiritual care consults placed---she is willing to attend outpatient rehab/treatment, resources and info given by CM/SANCHO. -Psychiatry consult -CIWAA with ativan protocol Electrolyte abnormalities: hypokalemia/hypomagnesemia -Replete and follow with daily labs ---DC on PO magnesium BID Question of clonazepam overdose----DC'd at DC -Hold all benzo's aside from CIWAA protocol -Believe most of this is due to hepatic encephalopathy Tobacco use/dependence -Smokes 1/2 ppd -Smoking cessation education -Nicotine patch Chronic: Alcoholic liver disease--as above Hx of esophageal varicies with banding- 2 years ago per patient report---needs GI f/up after discharge, states she was supposed to have repeat EGD to follow but has not done so as of yet Other: GI prophylax--cont omeprazole; does take carafate at home, will do this AC/HS here DVT prophylax PT/OT- ambulate TSH checked and WNL 1.089 CM/SW for assist with DC planning--OP alcohol treatment options. PCP is ESTRADA Recinos with [facility] She is Full Code status. - Patient Instructions Diet: Usual Diet as Tolerated, No Alcoholic Beverages Activity: As Tolerated Driving: Do Not Drive (for the next 24 hours- if any alcohol consumed do not drive) Showering/Bathing: May Shower Notify Provider of: Fever, Increased Pain, Nausea and/or Vomiting - Discharge Plan Prescriptions/Med Rec: Azithromycin [Zithromax] 250 mg PO DAILY #4 ml Biotin/FA/Vit C/Vit B Complex [Nephrocaps] 1 tab PO DAILY #30 tablet Lactulose [Cephulac] 30 gm PO DAILY #480 ml Magnesium Oxide 400 mg PO BID #60 tablet Nicotine [NTS] 1 each TD DAILY #30 patch.td24 Sucralfate [Carafate] 1 gm PO QIDACANDBED #480 ml Thiamine [Vitamin B-1] 100 mg PO DAILY #30 tablet Home Medications: Home Meds Folic Acid 1 mg PO DAILY 10/04/15 [History] Omeprazole 20 mg PO BIDAC 10/04/15 [History] Potassium Chloride 20 meq PO BID 10/04/15 [History] Venlafaxine HCl [Venlafaxine ER] 150 mg PO DAILY 10/04/15 [History] Aspirin 81 mg PO DAILY 12/07/17 [History] Betamethasone Dipropionate [Diprosone 0.05% Crm] 0 gm TOP BID PRN 12/07/17 [ History] Eszopiclone [Lunesta] 2 mg PO BEDTIME PRN 12/07/17 [History] Hydrochlorothiazide 25 mg PO DAILY 12/07/17 [History] Nadolol [Corgard] 40 mg PO DAILY 12/07/17 [History] Rifaximin [Xifaxan] 550 mg PO BID 12/07/17 [History] Triamcinolone Acetonide [Triamcinolone Acetonide 0.1% Crm] 15 gm .XX DAILY 12/07 [History] Azithromycin [Zithromax] 250 mg PO DAILY #4 ml 12/08/17 [Rx] Biotin/FA/Vit C/Vit B Complex [Nephrocaps] 1 tab PO DAILY #30 tablet 12/08/17 [ Rx] Lactulose [Cephulac] 30 gm PO DAILY #480 ml 12/08/17 [Rx] Magnesium Oxide 400 mg PO BID #60 tablet 12/08/17 [Rx] Nicotine [NTS] 1 each TD DAILY #30 patch.td24 12/08/17 [Rx] Sucralfate [Carafate] 1 gm PO QIDACANDBED #480 ml 12/08/17 [Rx] Thiamine [Vitamin B-1] 100 mg PO DAILY #30 tablet 12/08/17 [Rx] Patient Handouts: Addiction and the Family, Hepatic Encephalopathy, Hypomagnesemia, Substance Use Disorder, Finding Treatment for Addiction, Steps to Quit Smoking Referrals: Alea Parish, BRAKE REPAIR MECHANIC [Primary Care Provider] - - Discharge Summary/Plan Comment DC Time >30 min.: Yes (40 min) - General Info Date of Service: 12/08/17 Admission Dx/Problem (Free Text: Admission Diagnosis/Problem Admission Diagnosis/Problem Hepatic encephalopathy Much improved, clear mental state, A&O x 4 this morning. Is anxious for DC home today with . SW/CM visited with her yesterday about OP alcohol tx options and she is agreeable. Ammonia level down today. Functional Status: Reports: Pain Controlled, Tolerating Diet, Ambulating, Urinating. Denies: New Symptoms - Review of Systems General: Reports: No Symptoms HEENT: Reports: No Symptoms Pulmonary: Reports: No Symptoms Cardiovascular: Reports: No Symptoms Gastrointestinal: Reports: No Symptoms Genitourinary: Reports: No Symptoms Musculoskeletal: Reports: No Symptoms Skin: Reports: No Symptoms Neurological: Reports: No Symptoms. Denies: Confusion (resolved) Psychiatric: Reports: No Symptoms - Patient Data Vitals - Most Recent: Last Vital Signs Temp 98.8 F 12/08/17 07:15 Pulse 84 12/08/17 07:15 Resp 14 12/08/17 07:15 BP 118/63 12/08/17 07:15 Pulse Ox 95 12/08/17 07:15 Weight - Most Recent: 113 lb I&O - Last 24 hours: Intake & Output 12/07/17 12/08/17 12/08/17 22:59 06:59 14:59 Intake Total 1310 300 Output Total 450 Balance 860 300 Lab Results - Last 24 hrs: Laboratory Results - last 24 hr 12/07/17 12/07/17 12/07/17 Range/Units 09:20 09:20 09:20 WBC 4.86 (3.98-10.04) K/mm3 RBC 3.58 L (3.98-5.22) M/mm3 Hgb 12.4 (11.2-15.7) gm/L Hct 35.9 (34.1-44.9) % MCV 100.3 H (79.4-94.8) fl MCH 34.6 H (25.6-32.2) pg MCHC 34.5 (32.2-35.5) g/dl RDW Std Deviation 46.5 H (36.4-46.3) fL Plt Count 112 L (182-369) K/mm3 MPV 10.7 (9.4-12.3) fl Neut % (Auto) 43.9 (34.0-71.1) % Lymph % (Auto) 35.0 (19.3-51.7) % Kimball % (Auto) 15.8 H (4.7-12.5) % Eos % (Auto) 4.7 (0.7-5.8) Baso % (Auto) 0.4 (0.1-1.2) % Neut # (Auto) 2.13 (1.56-6.13) K/mm3 Lymph # (Auto) 1.70 (1.18-3.74) K/mm3 Kimball # (Auto) 0.77 H (0.24-0.36) K/mm3 Eos # (Auto) 0.23 (0.04-0.36) K/mm3 Baso # (Auto) 0.02 (0.01-0.08) K/mm3 Manual Slide Review Normal smear Sodium 141 (136-145) mEq/L Potassium 3.3 L (3.5-5.1) mEq/L Chloride 108 H (98-107) mEq/L Carbon Dioxide 19 L (21-32) mEq/L Anion Gap 17.3 H (5-15) BUN 14 (7-18) mg/dL Creatinine 0.7 (0.55-1.02) mg/dL Est Cr Clr Drug Dosing 68.29 mL/min Estimated GFR (MDRD) > 60 (>60) mL/min BUN/Creatinine Ratio 20.0 H (14-18) Glucose 94 (80-115) mg/dL Calcium 8.8 (8.5-10.1) mg/dL Magnesium 1.8 (1.8-2.4) mg/dl Iron (50-170) ug/dL TIBC (100-400) ug/dL % Saturation (20-55) % Transferrin (202-364) mg/dL Total Bilirubin 2.3 H (0.2-1.0) mg/dL AST 61 H (15-37) U/L ALT 49 (14-59) U/L Alkaline Phosphatase 113 (46-116) U/L Ammonia 79 H (11-32) umol/L C-Reactive Protein 0.5 (<1.0) mg/dL Total Protein 7.0 (6.4-8.2) g/dl Albumin 3.0 L (3.4-5.0) g/dl Globulin 4.0 gm/dL Albumin/Globulin Ratio 0.8 L (1-2) Vitamin B12 (193-986) pg/ml Folate (8.6-58.9) ng/mL Mycoplasma pneumon IgM Positive H (NEGATIVE) 12/07/17 12/08/17 12/08/17 Range/Units 09:20 05:15 05:15 WBC 5.40 (3.98-10.04) K/mm3 RBC 3.79 L (3.98-5.22) M/mm3 Hgb 13.5 (11.2-15.7) gm/L Hct 38.2 (34.1-44.9) % MCV 100.8 H (79.4-94.8) fl MCH 35.6 H (25.6-32.2) pg MCHC 35.3 (32.2-35.5) g/dl RDW Std Deviation 48.3 H (36.4-46.3) fL Plt Count 118 L (182-369) K/mm3 MPV 11.0 (9.4-12.3) fl Neut % (Auto) 42.6 (34.0-71.1) % Lymph % (Auto) 39.6 (19.3-51.7) % Kimball % (Auto) 14.1 H (4.7-12.5) % Eos % (Auto) 3.3 (0.7-5.8) Baso % (Auto) 0.4 (0.1-1.2) % Neut # (Auto) 2.30 (1.56-6.13) K/mm3 Lymph # (Auto) 2.14 (1.18-3.74) K/mm3 Kimball # (Auto) 0.76 H (0.24-0.36) K/mm3 Eos # (Auto) 0.18 (0.04-0.36) K/mm3 Baso # (Auto) 0.02 (0.01-0.08) K/mm3 Manual Slide Review Sodium 141 (136-145) mEq/L Potassium 3.5 (3.5-5.1) mEq/L Chloride 108 H (98-107) mEq/L Carbon Dioxide 19 L (21-32) mEq/L Anion Gap 17.5 H (5-15) BUN 12 (7-18) mg/dL Creatinine 0.7 (0.55-1.02) mg/dL Est Cr Clr Drug Dosing 66.70 mL/min Estimated GFR (MDRD) > 60 (>60) mL/min BUN/Creatinine Ratio 17.1 (14-18) Glucose 92 (80-115) mg/dL Calcium 8.9 (8.5-10.1) mg/dL Magnesium 1.2 L (1.8-2.4) mg/dl Iron 141 (50-170) ug/dL TIBC 220 (100-400) ug/dL % Saturation 64 H (20-55) % Transferrin 176 L (202-364) mg/dL Total Bilirubin (0.2-1.0) mg/dL AST (15-37) U/L ALT (14-59) U/L Alkaline Phosphatase (46-116) U/L Ammonia (11-32) umol/L C-Reactive Protein (<1.0) mg/dL Total Protein (6.4-8.2) g/dl Albumin (3.4-5.0) g/dl Globulin gm/dL Albumin/Globulin Ratio (1-2) Vitamin B12 1187 H (193-986) pg/ml Folate 34.1 (8.6-58.9) ng/mL Mycoplasma pneumon IgM (NEGATIVE) 12/08/17 Range/Units 06:58 WBC (3.98-10.04) K/mm3 RBC (3.98-5.22) M/mm3 Hgb (11.2-15.7) gm/L Hct (34.1-44.9) % MCV (79.4-94.8) fl MCH (25.6-32.2) pg MCHC (32.2-35.5) g/dl RDW Std Deviation (36.4-46.3) fL Plt Count (182-369) K/mm3 MPV (9.4-12.3) fl Neut % (Auto) (34.0-71.1) % Lymph % (Auto) (19.3-51.7) % Kimball % (Auto) (4.7-12.5) % Eos % (Auto) (0.7-5.8) Baso % (Auto) (0.1-1.2) % Neut # (Auto) (1.56-6.13) K/mm3 Lymph # (Auto) (1.18-3.74) K/mm3 Kimball # (Auto) (0.24-0.36) K/mm3 Eos # (Auto) (0.04-0.36) K/mm3 Baso # (Auto) (0.01-0.08) K/mm3 Manual Slide Review Sodium (136-145) mEq/L Potassium (3.5-5.1) mEq/L Chloride (98-107) mEq/L Carbon Dioxide (21-32) mEq/L Anion Gap (5-15) BUN (7-18) mg/dL Creatinine (0.55-1.02) mg/dL Est Cr Clr Drug Dosing mL/min Estimated GFR (MDRD) (>60) mL/min BUN/Creatinine Ratio (14-18) Glucose (80-115) mg/dL Calcium (8.5-10.1) mg/dL Magnesium (1.8-2.4) mg/dl Iron (50-170) ug/dL TIBC (100-400) ug/dL % Saturation (20-55) % Transferrin (202-364) mg/dL Total Bilirubin (0.2-1.0) mg/dL AST (15-37) U/L ALT (14-59) U/L Alkaline Phosphatase (46-116) U/L Ammonia 39 H (11-32) umol/L C-Reactive Protein (<1.0) mg/dL Total Protein (6.4-8.2) g/dl Albumin (3.4-5.0) g/dl Globulin gm/dL Albumin/Globulin Ratio (1-2) Vitamin B12 (193-986) pg/ml Folate (8.6-58.9) ng/mL Mycoplasma pneumon IgM (NEGATIVE) WARNER Results - Last 24 hrs: Microbiology 12/06/17 23:48 Streptococcus pneumoniae Antigen (M - Final Urine Med Orders - Current: Current Medications Albuterol/Ipratropium (Duoneb 3.0-0.5 Mg/3 Ml) 3 ml NEB Q4H PRN PRN Reason: Shortness Of Breath/wheezing Azithromycin (Zithromax) 500 mg PO DAILY [facility] Enoxaparin Sodium (Lovenox) 40 mg SUBCUT DAILY [facility] Folic Acid (Folic Acid) 1 mg PO DAILY [facility] Last Admin: 12/07/17 12:13 Dose: 1 mg Hydralazine HCl (Apresoline) 20 mg IVPUSH Q6H PRN PRN Reason: Hypertension Hydrochlorothiazide (Hydrochlorothiazide) 25 mg PO DAILY [facility] Lactulose (Cephulac) 30 gm PO BID [facility] Last Admin: 12/07/17 22:03 Dose: 30 gm Lorazepam (Ativan) 0 mg IVPUSH Q4H PRN; Protocol PRN Reason: withdrawl Lorazepam (Ativan) 2 mg IVPUSH Q4H PRN PRN Reason: Seizures Magnesium Oxide (Magnesium Oxide) 800 mg PO DAILY [facility] Miscellaneous Information (Remove Patch) 0 ea TRDERM Q24H [facility] Nadolol (Naldol) 20 mg PO DAILY [facility] Nicotine (Habitrol) 21 mg TRDERM Q24H [facility] Last Admin: 12/07/17 12:13 Dose: 21 mg Ondansetron HCl (Zofran Odt) 4 mg PO Q4H PRN PRN Reason: nausea, able to take PO Pantoprazole Sodium (Protonix) 40 mg PO DAILY [facility] Last Admin: 12/07/17 09:37 Dose: 40 mg Pantoprazole Sodium (Protonix) 40 mg PO DAILY [facility] Last Admin: 12/07/17 12:15 Dose: Not Given Potassium Chloride (Klor-Con M20) 20 meq PO BID [facility] Rifaximin (Xifaxan) 550 mg PO BID [facility] Last Admin: 12/07/17 22:03 Dose: 550 mg Sucralfate (Carafate) 1 gm PO QIDACANDBED [facility] Last Admin: 12/08/17 06:55 Dose: 1 gm Thiamine HCl (Vitamin B-1) 100 mg PO DAILY [facility] Last Admin: 12/07/17 12:13 Dose: 100 mg Tramadol HCl (Ultram) 50 mg PO Q4H PRN PRN Reason: Pain Venlafaxine HCl (Effexor Xr) 150 mg PO DAILY [facility] Last Admin: 12/07/17 12:12 Dose: 150 mg Vitamin B Complex/Vit C/Folic Acid (Nephrocaps) 1 tab PO DAILY [facility] Last Admin: 12/07/17 12:13 Dose: 1 tab Discontinued Medications Enoxaparin Sodium (Lovenox) 30 mg SUBCUT Q24H [facility] Last Admin: 12/07/17 09:37 Dose: 30 mg Sodium Chloride (Normal Saline) 1,000 mls @ 150 mls/hr IV ASDIRECTED [facility] Last Infusion: 12/07/17 06:10 Dose: Infused Magnesium Sulfate 2 gm/ Premix 50 mls @ 50 mls/hr IV ONETIME ONE Stop: 12/07/17 01:49 Last Admin: 12/07/17 01:11 Dose: 50 mls/hr Magnesium Sulfate 2 gm/ Premix 50 mls @ 25 mls/hr IV ONETIME ONE Stop: 12/07/17 05:24 Last Admin: 12/07/17 10:11 Dose: Not Given Magnesium Sulfate (Magnesium Sulfate 2 Gm In Water 50 Ml) Confirm Administered Dose 50 mls @ as directed .ROUTE .STK-MED ONE Stop: 12/07/17 03:33 Last Admin: 12/07/17 10:11 Dose: Not Given Sodium Chloride (Normal Saline) 1,000 mls @ 75 mls/hr IV ASDIRECTED [facility] Sodium Chloride (Normal Saline) 1,000 mls @ 35 mls/hr IV ASDIRECTED [facility] Last Admin: 12/07/17 17:41 Dose: 35 mls/hr Magnesium Sulfate 2 gm/ Premix 50 mls @ 25 mls/hr IV Q1H BIANCA Stop: 12/08/17 08:44 Last Admin: 12/08/17 06:54 Dose: 25 mls/hr Ondansetron HCl (Zofran) 4 mg IV Q4H PRN PRN Reason: Nausea/Vomiting Oxycodone HCl (Oxycodone) 5 mg PO Q4H PRN PRN Reason: Pain (moderate 4-6) Potassium Chloride (Klor-Con M20) 40 meq PO ONETIME ONE Stop: 12/07/17 17:01 Last Admin: 12/07/17 17:38 Dose: 40 meq Temazepam (Restoril) 7.5 mg PO BEDTIME PRN PRN Reason: Sleep - Exam Quality Assessment: Reports: DVT Prophylaxis General: Reports: Alert, Oriented, Cooperative, No Acute Distress HEENT: Reports: Pupils Equal, Pupils Reactive, Mucous Membr. Moist/Elias-Fela Solis Neck: Reports: Supple Lungs: Reports: Clear to Auscultation, Normal Respiratory Effort, Decreased Breath Sounds (bases) Cardiovascular: Reports: Regular Rate, Regular Rhythm GI/Abdominal Exam: Normal Bowel Sounds, Soft, Non-Tender (Female) Exam: Deferred Rectal (Female) Exam: Deferred Extremities: No Pedal Edema, Normal Capillary Refill Neurological: Reports: No New Focal Deficit Psy/Mental Status: Reports: Alert, Normal Affect, Normal Mood
[2017-12-08] MEDS ORDERED: Enoxaparin 40 MG/0.4 ML Syringe SUBCUT SCH (09:00)
[2017-12-08] MEDS ORDERED: Potassium Chloride 20 MEQ Tab.ER PO SCH (09:00)
[2017-12-08] MEDS ORDERED: Hydrochlorothiazide 25 MG Tab PO SCH (09:00)
[2017-12-08] MEDS ORDERED: Azithromycin 250 MG Tab PO SCH (09:00)
[2017-12-08] MEDS: Venlafaxine 75 MG Cap.ER PO SCH (09:01)
[2017-12-08] MEDS: Biotin/Folic Acid/Vitamin C/Vitamin B Complex Tab PO SCH (09:01)
[2017-12-08] MEDS: Rifaximin 550 MG Tab PO SCH (09:02)
[2017-12-08] MEDS: Thiamine 100 MG Tab PO SCH (09:02)
[2017-12-08] MEDS: Pantoprazole 40 MG Tab.CR PO SCH ×2 (09:02→09:57)
[2017-12-08] MEDS: Lactulose Soln 10 GM/15 ML 30 ML UD Cup PO SCH (09:03)
[2017-12-08] MEDS: Folic Acid 1 MG Tab PO SCH (09:03)
[2017-12-08] MEDS ORDERED: FLU Vacc QS 2017-18 (6mos UP)/PF 60 MCG/0.5 ML Syringe IM ONE (12:15)
[2017-12-08 12:44] VITALS: BP 116/83
[2017-12-08] MEDS: Nicotine 21 MG/24 Hr Patch TRDERM SCH (13:51)
[2017-12-08] MEDS ORDERED: Magnesium Oxide 400 MG Tab PO SCH (21:00)
--- NOTE | 2017-12-09 10:03 | CONS ---
CONSULTING PHYSICIAN: Antwan Ramsey MD DATE OF CONSULTATION: 12/08/2016 IDENTIFICATION: The patient is a 62-year-old female who has been admitted to the inpatient medical unit, [facility] in [place], [place] on 12/07/2017. She is seen for psychiatric consultation. Her , Logan, is also present for the interview and also participates in the interview today. CHIEF COMPLAINT: "I do not really know." HISTORY OF PRESENT ILLNESS: The patient is a 62-year-old female who is admitted for altered mental status on 12/07/2017, to the inpatient medical unit at [facility]. Evidently, her became alarmed after coming home from work and noting that his "was staring into some open cabinets in the kitchen." When the patient's tried to ask what the patient was doing, the patient told him to leave her alone and the situation apparently deteriorated from there. Her noted that the increased confusion was not getting any better, so he ended up getting the patient to the ER where she was subsequently evaluated and admitted to the inpatient unit. The patient is not clear why she got so confused, but she does state that she has been having some more episodes of confusion lately and her agrees with this fact, stating that "happens occasionally" in the past, but it does appear to be more frequent over the past couple months. When asked if the patient is complicating her clinical situation with any illicit substance use or excessive alcohol use, the patient does acknowledge that she has been drinking pretty regularly at least "4 shots of liquor per day" and she conjectures that her drinking has "been getting progressively worse" over the last month or so. She does state her mother in February of 2017 and she had a sister who in 2015, and this has been stressful for her. The is concerned also that the patient perhaps has been drinking too much and he does acknowledge that he is a drinker also. The patient is stating that she would not mind getting help for her drinking, but she also states that if she gets help, "I want Logan to get help too." The patient denies that she is suicidal or homicidal. She denies any psychotic, delusional, or paranoid symptoms. She denies being depressed or having excessive anxiety. She would just like to get medically stabilized and get discharged back to the community as possible. Her is stating that the patient was being prescribed what appears to be clonazepam and he feels that this clonazepam was also complicating things because she was evidently taking this medication and then drinking and he feels that this made her confusion all the worse. MEDICATIONS: At the time of presentation, 1. Klonopin 0.5 mg q.a.m., 1 mg at bedtime on admission. 2. Lunesta. ALLERGIES: 1. Codeine. 2. Macrobid. PAST MEDICAL HISTORY: Significant for hyperammonemia on admission. REVIEW OF SYSTEMS: Aside from endocrine, all other major organ systems are negative at this point in time for acute difficulties or complications. FAMILY PSYCHIATRIC HISTORY AND CD HISTORY: The patient denies. PAST PSYCHIATRIC HISTORY AND CD HISTORY: The patient denies any previous psychiatric hospitalizations. Does report one chemical dependency treatment back in 2016 for alcohol. Denies any previous suicide attempts or self-injurious behaviors. She has been diagnosed with anxiety in the past. PRIMARY OUTPATIENT PROVIDER: Joyce Parish, Nurse practitioner out of [place]. SOCIAL HISTORY: The patient was born and raised in [place], [place]. 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 MENTAL STATUS EXAM: The patient is a 62-year-old soft-spoken white female in no apparent distress. Speech is of increased latency of response, regular rate and rhythm. Psychomotor activities are within normal limits. There is no abnormal motor movements or tics observed. Gait and station are not observed as this patient is lying in bed. The patient is only alert and oriented x2 to person and place, but not to date. Mood is tired. Affect is consistent with stated mood, but cooperative overall for the purposes of the inpatient consult. There is no behavioral or stated evidence of acute suicidal or homicidal ideation or acute psychotic, delusional, or paranoid symptoms. Thought processes are slow with perhaps some mild thought blocking. There are no acute manic symptoms or loose associations evident. Judgment and insight appear impaired at the moment due to her poor cognition status but does appear to be clearing as time goes on. Motivation for help appears fair. VITAL SIGNS: 118/57, 90, 16, 98.2 degrees. IMPRESSION: White Owl I: 1. Alcohol dependence F10.20. 2. Depression, not otherwise specified, F32.9. White Owl II: None. White Owl III: Hyperammonemia. White Owl IV: Severe. White Owl V: 55. PLAN: 1. Sobriety. 2. AA rep to visit the patient while on unit. 3. Pastoral guidance. 4. CD consult to present the patient with possible resources for either outpatient or inpatient treatment on a voluntary basis. 5. I would recommend discontinuing patient's Klonopin medication as she is medically stabilized and discharged back to community. 6. We will also discontinue Lunesta medication. The patient is medically stabilized and discharged back to community. 7. Thiamine supplementation. 8. Folic acid supplementation. 9. Ativan per [facility] protocol. 10.Recommend the patient to follow up with Outpatient Psychiatry once she is medically stabilized, discharged back to community to assess overall function and efficacy of her current treatment plan. 11.We will follow up with the patient on a regular basis while she remains on the inpatient medical unit. 12.We will follow up with the patient sooner if any complications in the interim. 13.If the patient has any breakthrough symptoms of depression or anxiety while attempting to attain and maintain sobriety, I would recommend reviewing some possible psychiatric treatment options on an outpatient basis for the patient in this regard. 14.Crisis plan is in place. POLLY /[id number]
== END 2017-12-08 14:04 | disposition home or self-care (01) | DRG 918 ==
LOC: JD.ED 22:35 → JD.MS 12-07 02:00
PROVIDERS: ADMIT Internal Medicine Critical Care Medicine; ATTEND Internal Medicine Cardiovascular Disease
DX: T42.4X1A Poisoning by benzodiazepines, accidental (unintentional), initial encounter (principal); I85.10 Secondary esophageal varices without bleeding; E87.2 Acidosis; E87.3 Alkalosis; R44.3 Hallucinations, unspecified; F10.20 Alcohol dependence, uncomplicated; K70.30 Alcoholic cirrhosis of liver without ascites; I10 Essential (primary) hypertension; R32 Unspecified urinary incontinence; F41.9 Anxiety disorder, unspecified; K72.90 Hepatic failure, unspecified without coma; E83.42 Hypomagnesemia; R41.82 Altered mental status, unspecified; E87.6 Hypokalemia; F17.210 Nicotine dependence, cigarettes, uncomplicated; F32.9 Major depressive disorder, single episode, unspecified; A49.3 Mycoplasma infection, unspecified site; Z79.82 Long term (current) use of aspirin; Z88.6 Allergy status to analgesic agent; Z88.1 Allergy status to other antibiotic agents; Z79.899 Other long term (current) drug therapy
CPT/HCPCS: 36415; 36600; 70450; 70450-26; 71045; 71045-26; 80048; 80053; 80306; 81001; 82140; 82607; 82746; 82803; 83540; 83605; 83690; 83735; 83930; 84443; 84466; 84484; 85025; 85610; 85730; 86140; 86738; 87899; 90686; 93005; 93010; 96361; 96365; 97116-GP; 97162-GP; 97165-GO; 97530-GP; 99284; 99285-25; A9270-GY; G0008; G0480; J1650; J3475; J7040

== ENCOUNTER 2017-12-24 08:56 | Inpatient (IN) | payer MEDICAID ==
[2017-12-24] MEDS ORDERED: Sodium Chloride 0.9% 10 ML Syringe FLUSH PRN ×2 (09:17→13:37)
[2017-12-24] MEDS ORDERED: Folic Acid 1 MG Tab PO ONE (09:19)
[2017-12-24] MEDS ORDERED: Thiamine 100 MG in Sodium Chloride 0.9% 100 ML IV ONE (09:19)
--- NOTE | 2017-12-24 09:34 | EDM.PDOC ---
ED HPI GENERAL MEDICAL PROBLEM - General Chief Complaint: Behavioral/Psych Stated Complaint: HALLUCINATIONS FROM MEDICATION Time Seen by Provider: 12/24/17 09:09 Source of Information: Reports: Patient, Family History Limitations: Reports: No Limitations - History of Present Illness INITIAL COMMENTS - FREE TEXT/NARRATIVE: The patient presents because of hallucinations. The patient was brought in by her for hallucinations that started last night. She was actually admitted here over 2 weeks ago for the same. She was found to have an elevated ammonia level. She was admitted and given lactulose and she did good. She started having problems last night. She went to the bathroom on their bed spread. She was leaning up against the wall to go to the bathroom. She has been confused and off balance. Her is not sure if she drinking again. She has been a heavy drinker for years and in 2015 she was in treatment and did not drink for 5 months. She started again after that and has been drinking heavy since. She has a headache for a few weeks. She has no fever, chills, cough, chest pain, shortness of breath, abdominal pain, nausea or vomiting. He is not sure if she has been taking her medicine or if she is drinking alcohol lately. Onset: Gradual Duration: Day(s): Location: Reports: Head Quality: Reports: Sharp Severity: Moderate Improves with: Reports: None Worsens with: Reports: None Associated Symptoms: Reports: Confusion, Headaches. Denies: Chest Pain, Cough, Diaphoresis, Fever/Chills, Nausea/Vomiting, Shortness of Breath Headache Pain Score (Numeric/FACES): 7 - Related Data Allergies Allergy/AdvReac Type Severity Reaction Status Date / Time nitrofurantoin Allergy Rash Verified 12/24/17 09:10 [From Macrobid] nitrofurantoin Allergy Rash Verified 12/24/17 09:10 macrocrystalline [From Macrobid] codeine AdvReac Upset Verified 12/24/17 09:10 Stomach Home Meds: Home Meds Folic Acid 1 mg PO DAILY 10/04/15 [History] Omeprazole 20 mg PO BIDAC 10/04/15 [History] Potassium Chloride 20 meq PO BID 10/04/15 [History] Venlafaxine HCl [Venlafaxine ER] 150 mg PO DAILY 10/04/15 [History] Aspirin 81 mg PO DAILY 12/07/17 [History] Betamethasone Dipropionate [Diprosone 0.05% Crm] 0 gm TOP BID PRN 12/07/17 [ History] Eszopiclone [Lunesta] 2 mg PO BEDTIME PRN 12/07/17 [History] Hydrochlorothiazide 25 mg PO DAILY 12/07/17 [History] Nadolol [Corgard] 40 mg PO DAILY 12/07/17 [History] Rifaximin [Xifaxan] 550 mg PO BID 12/07/17 [History] Triamcinolone Acetonide [Triamcinolone Acetonide 0.1% Crm] 15 gm .XX DAILY 12/07 [History] Azithromycin [Zithromax] 250 mg PO DAILY #4 ml 12/08/17 [Rx] Biotin/FA/Vit C/Vit B Complex [Nephrocaps] 1 tab PO DAILY #30 tablet 12/08/17 [ Rx] Lactulose [Cephulac] 30 gm PO DAILY #480 ml 12/08/17 [Rx] Nicotine [NTS] 1 each TD DAILY #30 patch.td24 12/08/17 [Rx] Sucralfate [Carafate] 1 gm PO QIDACANDBED #480 ml 12/08/17 [Rx] Thiamine [Vitamin B-1] 100 mg PO DAILY #30 tablet 12/08/17 [Rx] Magnesium Oxide 400 mg PO TID 12/24/17 [History] Past Medical History HEENT History: Reports: Cataract Cardiovascular History: Reports: Hypertension Gastrointestinal History: Reports: Cirrhosis (alcoholic), Pancreatitis, Other ( See Below) (Esophageal varices) Other Gastrointestinal History: Possible cirrhosis Genitourinary History: Reports: Urinary Incontinence [employer]PLICATION[employer] 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 ) ED ROS GENERAL - Review of Systems Review Of Systems: See Below Constitutional: Reports: No Symptoms HEENT: Reports: No Symptoms Respiratory: Reports: No Symptoms Cardiovascular: Reports: No Symptoms Endocrine: Reports: No Symptoms GI/Abdominal: Reports: No Symptoms : Reports: No Symptoms Musculoskeletal: Reports: No Symptoms Skin: Reports: No Symptoms Neurological: Reports: Headache Psychiatric: Reports: No Symptoms - Physical Exam Exam: See Below Exam Limited By: No Limitations General Appearance: Alert, No Apparent Distress Ears: Normal External Exam Nose: Normal Inspection Head Exam: Atraumatic, Normocephalic Neck: Normal Inspection, Supple, Non-Tender Respiratory/Chest: No Respiratory Distress, Lungs Clear, Normal Breath Sounds Cardiovascular: Regular Rate, Rhythm, No Edema, No Murmur GI/Abdominal: Soft, Non-Tender, No Organomegaly, No Mass Neuro Exam (Abbreviated): Alert, Oriented, No Motor/Sensory Deficits, Other ( She can do finger to nose but she is slow) Extremities: Normal Inspection Course - Vital Signs Last Recorded V/S: Last Vital Signs Temp 98.8 F 12/24/17 12:46 Pulse 83 12/24/17 14:38 Resp 13 12/24/17 14:00 BP 115/67 12/24/17 14:38 Pulse Ox 100 12/24/17 14:00 - Orders/Labs/Meds Orders: Active Orders 24 hr Category Date Time Status Cardiac Monitoring [RC] . DIRECTED Care 12/24/17 09:17 Active DRUG SCREEN, URINE [URCHEM] Stat Lab 12/24/17 12:15 Ordered UA W/MICROSCOPIC [URIN] Stat Lab 12/24/17 13:54 Ordered Dextrose 5%-0.45% NaCl [Dextrose 5%-1/2 NS] 1,000 ml Med 12/24/17 09:30 Active MVI, Adult with Vitamin K [M.V.I. Adult] 10 ml IV 125 mls/hr Sodium Chloride 0.9% [Normal Saline] 1,000 ml Med 12/24/17 09:30 Active IV ASDIRECTED Peripheral IV Insertion Adult [OM.PC] Stat Oth 12/24/17 09:17 Ordered Medication Orders Acetaminophen (Tylenol) 650 mg PO Q4H PRN PRN Reason: Pain (Mild 1-3)/fever Hydrocodone Bitart/Acetaminophen ([place] 325-5 Mg) 1 tab PO Q4H PRN PRN Reason: Pain (moderate 4-6) Last Admin: 12/24/17 14:38 Dose: 1 tab Albuterol/Ipratropium (Duoneb 3.0-0.5 Mg/3 Ml) 3 ml NEB Q4H PRN PRN Reason: Shortness Of Breath/wheezing Aspirin (Aspirin) 81 mg PO DAILY [facility] Last Admin: 12/24/17 14:37 Dose: 81 mg Bisacodyl (Dulcolax) 5 mg PO DAILY PRN PRN Reason: Constipation Docusate Sodium (Colace) 100 mg PO BID PRN PRN Reason: Constipation Enoxaparin Sodium (Lovenox) 40 mg SUBCUT DAILY [facility] Last Admin: 12/24/17 14:11 Dose: 40 mg Folic Acid (Folic Acid) 1 mg PO DAILY [facility] Hydrochlorothiazide (Hydrochlorothiazide) 25 mg PO DAILY [facility] Last Admin: 12/24/17 14:37 Dose: 25 mg Sodium Chloride (Normal Saline) 1,000 mls @ 125 mls/hr IV ASDIRECTED [facility] Last Admin: 12/24/17 09:45 Dose: 125 mls/hr Multivitamins/Minerals 10 ml/ (Dextrose/Sodium Chloride) 1,010 mls @ 125 mls/ hr IV .Q8H5M [facility] Stop: 12/24/17 18:00 Last Admin: 12/24/17 10:37 Dose: 125 mls/hr Lactulose (Cephulac) 30 gm PO DAILY [facility] Lorazepam (Ativan) 0.25 mg IVPUSH Q4H PRN PRN Reason: Anxiety Magnesium Hydroxide (Milk Of Magnesia) 30 ml PO Q12H PRN PRN Reason: Constipation Magnesium Oxide (Magnesium Oxide) 400 mg PO TID [facility] Last Admin: 12/24/17 14:42 Dose: 400 mg Miscellaneous Information (Remove Patch) 0 ea TRDERM DAILY [facility] Morphine Sulfate (Morphine) 2 mg IVPUSH Q2H PRN PRN Reason: Pain (severe 7-10) Stop: 12/25/17 13:34 Multivitamins (Thera) 1 each PO DAILY [facility] Last Admin: 12/24/17 14:42 Dose: 1 each Nadolol (Naldol) 40 mg PO DAILY [facility] Last Admin: 12/24/17 14:38 Dose: 40 mg Nicotine (Habitrol) 21 mg TRDERM DAILY [facility] Last Admin: 12/24/17 14:11 Dose: 21 mg Ondansetron HCl (Zofran Odt) 4 mg PO Q6H PRN PRN Reason: nausea, able to take PO Ondansetron HCl (Zofran) 4 mg IV Q6H PRN PRN Reason: Nausea/Vomiting Polyethylene Glycol (Miralax) 17 gm PO DAILY PRN PRN Reason: Constipation Potassium Chloride (Klor-Con M20) 20 meq PO BID [facility] Last Admin: 12/24/17 14:42 Dose: 20 meq Promethazine HCl (Phenergan) 25 mg PO Q6H PRN PRN Reason: Nausea/Vomiting Rifaximin (Xifaxan) 550 mg PO BID [facility] Last Admin: 12/24/17 14:42 Dose: 550 mg Senna/Docusate Sodium (Senna Plus) 1 tab PO BID PRN PRN Reason: Constipation Sodium Chloride (Saline Flush) 10 ml FLUSH ASDIRECTED PRN PRN Reason: Keep Vein Open Sucralfate (Carafate) 1 gm PO QIDACANDBED [facility] Temazepam (Restoril) 7.5 mg PO BEDTIME PRN PRN Reason: Sleep Thiamine HCl (Vitamin B-1) 100 mg PO DAILY [facility] Triamcinolone Acetonide (Triamcinolone Acetonide 0.1% Crm) 0 gm TOP DAILY [facility] Venlafaxine HCl (Effexor Xr) 150 mg PO DAILY [facility] Vitamin B Complex/Vit C/Folic Acid (Nephrocaps) 1 tab PO DAILY [facility] Last Admin: 12/24/17 14:42 Dose: 1 tab Labs: Laboratory Tests 12/24/17 12/24/17 12/24/17 Range/Units 09:20 09:20 09:20 WBC 4.29 (3.98-10.04) K/mm3 RBC 3.93 L (3.98-5.22) M/mm3 Hgb 13.5 (11.2-15.7) gm/L Hct 39.5 (34.1-44.9) % MCV 100.5 H (79.4-94.8) fl MCH 34.4 H (25.6-32.2) pg MCHC 34.2 (32.2-35.5) g/dl RDW Std Deviation 47.6 H (36.4-46.3) fL Plt Count 135 L (182-369) K/mm3 MPV 10.6 (9.4-12.3) fl Neut % (Auto) 50.6 (34.0-71.1) % Lymph % (Auto) 30.5 (19.3-51.7) % [place] % (Auto) 15.9 H (4.7-12.5) % Eos % (Auto) 2.3 (0.7-5.8) Baso % (Auto) 0.5 (0.1-1.2) % Neut # (Auto) 2.17 (1.56-6.13) K/mm3 Lymph # (Auto) 1.31 (1.18-3.74) K/mm3 [place] # (Auto) 0.68 H (0.24-0.36) K/mm3 Eos # (Auto) 0.10 (0.04-0.36) K/mm3 Baso # (Auto) 0.02 (0.01-0.08) K/mm3 Manual Slide Review Normal smear PT 11.8 (9.5-12.1) SECONDS INR 1.08 APTT 30 (24-31) SECONDS Sodium 142 (136-145) mEq/L Potassium 3.4 L (3.5-5.1) mEq/L Chloride 106 (98-107) mEq/L Carbon Dioxide 20 L (21-32) mEq/L Anion Gap 19.4 H (5-15) BUN 29 H (7-18) mg/dL Creatinine 0.9 (0.55-1.02) mg/dL Est Cr Clr Drug Dosing 47.00 mL/min Estimated GFR (MDRD) > 60 (>60) mL/min BUN/Creatinine Ratio 32.2 H (14-18) Glucose 102 (80-115) mg/dL Calcium 10.0 (8.5-10.1) mg/dL Magnesium (1.8-2.4) mg/dl Total Bilirubin 1.8 H (0.2-1.0) mg/dL AST 68 H (15-37) U/L ALT 60 H (14-59) U/L Alkaline Phosphatase 125 H (46-116) U/L Ammonia (11-32) umol/L Troponin I < 0.017 (0.00-0.056) ng/mL C-Reactive Protein 1.2 H* (<1.0) mg/dL Total Protein 8.1 (6.4-8.2) g/dl Albumin 3.6 (3.4-5.0) g/dl Globulin 4.5 gm/dL Albumin/Globulin Ratio 0.8 L (1-2) Urine Color (Yellow) Urine Appearance (Clear) Urine pH (5.0-8.0) Ur Specific [place] (1.005-1.030) Urine Protein (Negative) Urine Glucose (UA) (Negative) Urine Ketones (Negative) Urine Occult Blood (Negative) Urine Nitrite (Negative) Urine Bilirubin (Negative) Urine Urobilinogen (0.2-1.0) Ur Leukocyte Esterase (Negative) Urine RBC (0-5) /hpf Urine WBC (0-5) /hpf Ur Epithelial Cells (0-5) /hpf Urine Bacteria (FEW) /hpf Urine Mucus (FEW) /hpf Urine Opiates Screen (NEGATIVE) Ur Buprenorphine Scrn (NEGATIVE) Ur Oxycodone Screen (NEGATIVE) Urine Methadone Screen (NEGATIVE) Ur Propoxyphene Screen (NEGATIVE) Ur Barbiturates Screen (NEGATIVE) Ur Tricyclics Screen (NEGATIVE) Ur Phencyclidine Scrn (NEGATIVE) Ur Amphetamine Screen (NEGATIVE) U Methamphetamines Scrn (NEGATIVE) U Benzodiazepines Scrn (NEGATIVE) U Cocaine Metab Screen (NEGATIVE) U Marijuana (THC) Screen (NEGATIVE) Ethyl Alcohol 0.00 (0.00) gm% 12/24/17 12/24/17 12/24/17 Range/Units 10:15 10:15 12:15 WBC (3.98-10.04) K/mm3 RBC (3.98-5.22) M/mm3 Hgb (11.2-15.7) gm/L Hct (34.1-44.9) % MCV (79.4-94.8) fl MCH (25.6-32.2) pg MCHC (32.2-35.5) g/dl RDW Std Deviation (36.4-46.3) fL Plt Count (182-369) K/mm3 MPV (9.4-12.3) fl Neut % (Auto) (34.0-71.1) % Lymph % (Auto) (19.3-51.7) % [place] % (Auto) (4.7-12.5) % Eos % (Auto) (0.7-5.8) Baso % (Auto) (0.1-1.2) % Neut # (Auto) (1.56-6.13) K/mm3 Lymph # (Auto) (1.18-3.74) K/mm3 [place] # (Auto) (0.24-0.36) K/mm3 Eos # (Auto) (0.04-0.36) K/mm3 Baso # (Auto) (0.01-0.08) K/mm3 Manual Slide Review PT (9.5-12.1) SECONDS INR APTT (24-31) SECONDS Sodium (136-145) mEq/L Potassium (3.5-5.1) mEq/L Chloride (98-107) mEq/L Carbon Dioxide (21-32) mEq/L Anion Gap (5-15) BUN (7-18) mg/dL Creatinine (0.55-1.02) mg/dL Est Cr Clr Drug Dosing mL/min Estimated GFR (MDRD) (>60) mL/min BUN/Creatinine Ratio (14-18) Glucose (80-115) mg/dL Calcium (8.5-10.1) mg/dL Magnesium 1.5 L (1.8-2.4) mg/dl Total Bilirubin (0.2-1.0) mg/dL AST (15-37) U/L ALT (14-59) U/L Alkaline Phosphatase (46-116) U/L Ammonia 65 H (11-32) umol/L Troponin I (0.00-0.056) ng/mL C-Reactive Protein (<1.0) mg/dL Total Protein (6.4-8.2) g/dl Albumin (3.4-5.0) g/dl Globulin gm/dL Albumin/Globulin Ratio (1-2) Urine Color (Yellow) Urine Appearance (Clear) Urine pH (5.0-8.0) Ur Specific [place] (1.005-1.030) Urine Protein (Negative) Urine Glucose (UA) (Negative) Urine Ketones (Negative) Urine Occult Blood (Negative) Urine Nitrite (Negative) Urine Bilirubin (Negative) Urine Urobilinogen (0.2-1.0) Ur Leukocyte Esterase (Negative) Urine RBC (0-5) /hpf Urine WBC (0-5) /hpf Ur Epithelial Cells (0-5) /hpf Urine Bacteria (FEW) /hpf Urine Mucus (FEW) /hpf Urine Opiates Screen Negative (NEGATIVE) Ur Buprenorphine Scrn Negative (NEGATIVE) Ur Oxycodone Screen Negative (NEGATIVE) Urine Methadone Screen Negative (NEGATIVE) Ur Propoxyphene Screen Negative (NEGATIVE) Ur Barbiturates Screen Negative (NEGATIVE) Ur Tricyclics Screen Negative (NEGATIVE) Ur Phencyclidine Scrn Negative (NEGATIVE) Ur Amphetamine Screen Negative (NEGATIVE) U Methamphetamines Scrn Negative (NEGATIVE) U Benzodiazepines Scrn Negative (NEGATIVE) U Cocaine Metab Screen Negative (NEGATIVE) U Marijuana (THC) Screen Negative (NEGATIVE) Ethyl Alcohol (0.00) gm% 12/24/17 Range/Units 12:20 WBC (3.98-10.04) K/mm3 RBC (3.98-5.22) M/mm3 Hgb (11.2-15.7) gm/L Hct (34.1-44.9) % MCV (79.4-94.8) fl MCH (25.6-32.2) pg MCHC (32.2-35.5) g/dl RDW Std Deviation (36.4-46.3) fL Plt Count (182-369) K/mm3 MPV (9.4-12.3) fl Neut % (Auto) (34.0-71.1) % Lymph % (Auto) (19.3-51.7) % [place] % (Auto) (4.7-12.5) % Eos % (Auto) (0.7-5.8) Baso % (Auto) (0.1-1.2) % Neut # (Auto) (1.56-6.13) K/mm3 Lymph # (Auto) (1.18-3.74) K/mm3 [place] # (Auto) (0.24-0.36) K/mm3 Eos # (Auto) (0.04-0.36) K/mm3 Baso # (Auto) (0.01-0.08) K/mm3 Manual Slide Review PT (9.5-12.1) SECONDS INR APTT (24-31) SECONDS Sodium (136-145) mEq/L Potassium (3.5-5.1) mEq/L Chloride (98-107) mEq/L Carbon Dioxide (21-32) mEq/L Anion Gap (5-15) BUN (7-18) mg/dL Creatinine (0.55-1.02) mg/dL Est Cr Clr Drug Dosing mL/min Estimated GFR (MDRD) (>60) mL/min BUN/Creatinine Ratio (14-18) Glucose (80-115) mg/dL Calcium (8.5-10.1) mg/dL Magnesium (1.8-2.4) mg/dl Total Bilirubin (0.2-1.0) mg/dL AST (15-37) U/L ALT (14-59) U/L Alkaline Phosphatase (46-116) U/L Ammonia (11-32) umol/L Troponin I (0.00-0.056) ng/mL C-Reactive Protein (<1.0) mg/dL Total Protein (6.4-8.2) g/dl Albumin (3.4-5.0) g/dl Globulin gm/dL Albumin/Globulin Ratio (1-2) Urine Color Yellow (Yellow) Urine Appearance Clear (Clear) Urine pH 5.5 (5.0-8.0) Ur Specific [place] 1.025 (1.005-1.030) Urine Protein Negative (Negative) Urine Glucose (UA) Negative (Negative) Urine Ketones Negative (Negative) Urine Occult Blood Trace-intact H (Negative) Urine Nitrite Negative (Negative) Urine Bilirubin Negative (Negative) Urine Urobilinogen 0.2 (0.2-1.0) Ur Leukocyte Esterase Negative (Negative) Urine RBC Not seen (0-5) /hpf Urine WBC Not seen (0-5) /hpf Ur Epithelial Cells 0-5 (0-5) /hpf Urine Bacteria Not seen (FEW) /hpf Urine Mucus Not seen (FEW) /hpf Urine Opiates Screen (NEGATIVE) Ur Buprenorphine Scrn (NEGATIVE) Ur Oxycodone Screen (NEGATIVE) Urine Methadone Screen (NEGATIVE) Ur Propoxyphene Screen (NEGATIVE) Ur Barbiturates Screen (NEGATIVE) Ur Tricyclics Screen (NEGATIVE) Ur Phencyclidine Scrn (NEGATIVE) Ur Amphetamine Screen (NEGATIVE) U Methamphetamines Scrn (NEGATIVE) U Benzodiazepines Scrn (NEGATIVE) U Cocaine Metab Screen (NEGATIVE) U Marijuana (THC) Screen (NEGATIVE) Ethyl Alcohol (0.00) gm% Meds: Medications Generic Name Dose Route Start Last Admin Trade Name Freq PRN Reason Stop Dose Admin Acetaminophen 650 mg 12/24/17 13:23 Tylenol PO Q4H PRN Pain (Mild 1-3)/fever Hydrocodone Bitart/Acetaminophen 1 tab 12/24/17 13:23 12/24/17 14:38 [place] 325-5 Mg PO 1 tab Q4H PRN Administration Pain (moderate 4-6) Albuterol/Ipratropium 3 ml 12/24/17 13:23 Duoneb 3.0-0.5 Mg/3 Ml NEB Q4H PRN Shortness Of Breath/wheezing Aspirin 81 mg 12/24/17 14:00 12/24/17 14:37 Aspirin PO 81 mg DAILY [facility] Administration Bisacodyl 5 mg 12/24/17 13:23 Dulcolax PO DAILY PRN Constipation Docusate Sodium 100 mg 12/24/17 13:23 Colace PO BID PRN Constipation Enoxaparin Sodium 40 mg 12/24/17 13:45 12/24/17 14:11 Lovenox SUBCUT 40 mg DAILY [facility] Administration Folic Acid 1 mg 12/25/17 09:00 Folic Acid PO DAILY [facility] Hydrochlorothiazide 25 mg 12/24/17 14:15 12/24/17 14:37 Hydrochlorothiazide PO 25 mg DAILY [facility] Administration Sodium Chloride 1,000 mls @ 125 mls/hr 12/24/17 09:30 12/24/17 09:45 Normal Saline IV 125 mls/hr ASDIRECTED [facility] Administration Multivitamins/Minerals 10 ml/ 1,010 mls @ 125 mls/hr 12/24/17 09:30 12/24/17 10:37 Dextrose/Sodium Chloride IV 12/24/17 18:00 125 mls/hr .Q8H5M [facility] Administration Lactulose 30 gm 12/25/17 09:00 Cephulac PO DAILY [facility] Lorazepam 0.25 mg 12/24/17 14:31 Ativan IVPUSH Q4H PRN Anxiety Magnesium Hydroxide 30 ml 12/24/17 13:23 Milk Of Magnesia PO Q12H PRN Constipation Magnesium Oxide 400 mg 12/24/17 15:00 12/24/17 14:42 Magnesium Oxide PO 400 mg TID [facility] Administration Miscellaneous Information 0 ea 12/25/17 09:00 Remove Patch TRDERM DAILY [facility] Morphine Sulfate 2 mg 12/24/17 13:23 Morphine IVPUSH 12/25/17 13:34 Q2H PRN Pain (severe 7-10) Multivitamins 1 each 12/24/17 14:45 12/24/17 14:42 Thera PO 1 each DAILY [facility] Administration Nadolol 40 mg 12/24/17 14:15 12/24/17 14:38 Naldol PO 40 mg DAILY [facility] Administration Nicotine 21 mg 12/24/17 13:30 12/24/17 14:11 Habitrol TRDERM 21 mg DAILY [facility] Administration Ondansetron HCl 4 mg 12/24/17 13:23 Zofran Odt PO Q6H PRN nausea, able to take PO Ondansetron HCl 4 mg 12/24/17 13:23 Zofran IV Q6H PRN Nausea/Vomiting Polyethylene Glycol 17 gm 12/24/17 13:23 Miralax PO DAILY PRN Constipation Potassium Chloride 20 meq 12/24/17 14:15 12/24/17 14:42 Klor-Con M20 PO 20 meq BID [facility] Administration Promethazine HCl 25 mg 12/24/17 13:23 Phenergan PO Q6H PRN Nausea/Vomiting Rifaximin 550 mg 12/24/17 14:15 12/24/17 14:42 Xifaxan PO 550 mg BID [facility] Administration Senna/Docusate Sodium 1 tab 12/24/17 13:23 Senna Plus PO BID PRN Constipation Sodium Chloride 10 ml 12/24/17 13:37 Saline Flush FLUSH ASDIRECTED PRN Keep Vein Open Sucralfate 1 gm 12/24/17 17:00 Carafate PO QIDACANDBED [facility] Temazepam 7.5 mg 12/24/17 21:00 Restoril PO BEDTIME PRN Sleep Thiamine HCl 100 mg 12/25/17 09:00 Vitamin B-1 PO DAILY [facility] Triamcinolone Acetonide 0 gm 12/25/17 09:00 Triamcinolone Acetonide 0.1% Crm TOP DAILY [facility] Venlafaxine HCl 150 mg 12/25/17 09:00 Effexor Xr PO DAILY [facility] Vitamin B Complex/Vit C/Folic Acid 1 tab 12/24/17 14:15 12/24/17 14:42 Nephrocaps PO 1 tab DAILY [facility] Administration Discontinued Medications Generic Name Dose Route Start Last Admin Trade Name Freq PRN Reason Stop Dose Admin Folic Acid 1 mg 12/24/17 09:19 12/24/17 09:58 Folic Acid PO 12/24/17 09:20 1 mg ONETIME ONE Administration Thiamine HCl 100 mg/ Sodium 101 mls @ 202 mls/hr 12/24/17 09:19 12/24/17 09: 56 Chloride IV 12/24/17 09:20 202 mls/hr ONETIME ONE Administration Ketorolac Tromethamine 30 mg 12/24/17 10:38 12/24/17 11:04 Toradol IVPUSH 12/24/17 10:39 30 mg ONETIME ONE Administration Lactulose 20 gm 12/24/17 12:29 12/24/17 13:20 Cephulac PO 12/24/17 12:30 20 gm ONETIME ONE Administration Sodium Chloride 10 ml 12/24/17 09:17 12/24/17 09:46 Saline Flush FLUSH 10 ml ASDIRECTED PRN Administration Keep Vein Open - Re-Assessments/Exams Free Text/Narrative Re-Assessment/Exam: 12/24/17 09:38 I ordered an IV NS at 125mL/hr, thiamine 100mg IV, multivitamin IV, folic acid PO, labs, EKG, and CT of her head. 12/24/17 15:[address] shows nothing acute. Her CBC looks good. Her PT, INR and PTT was normal. K was a little low at 3.4. Her anion gap is elevated at 19.4. Her BUN was elevated at 29. Her magnesium was low at 1.5. Her total bili was elevated at 1.8. Her AST was elevated at 68. Her ALT was elevated at 60 along with her Alk Phos of 125. Her ammonia level was elevated at 65. Her troponin was negative. Her CRP was 1.2. Her US shows no UTI. Her UDS was negative. Her ETOH was negative. I did give her some lactulose. I feel she needs to be admitted. I called Dr Vann and he agreed to the admission. Departure - Departure Time of Disposition: 15:20 Disposition: Admitted As Inpatient 67 Condition: Serious Clinical Impression: Alcoholism, Hepatic encephalopathy, Hypomagnesemia, Liver disease due to alcohol - Discharge Information - My Orders Last 24 Hours: My Active Orders 12/24/17 09:17 Cardiac Monitoring [RC] . DIRECTED Peripheral IV Insertion Adult [OM.PC] Stat 12/24/17 09:30 Dextrose 5%-0.45% NaCl [Dextrose 5%-1/2 NS] 1,000 ml MVI, Adult with Vitamin K [M.V.I. Adult] 10 ml IV 125 mls/hr Sodium Chloride 0.9% [Normal Saline] 1,000 ml IV ASDIRECTED 12/24/17 12:15 DRUG SCREEN, URINE [URCHEM] Stat 12/24/17 13:54 UA W/MICROSCOPIC [URIN] Stat - Assessment/Plan Last 24 Hours: My Active Orders 12/24/17 09:17 Cardiac Monitoring [RC] . DIRECTED Peripheral IV Insertion Adult [OM.PC] Stat 12/24/17 09:30 Dextrose 5%-0.45% NaCl [Dextrose 5%-1/2 NS] 1,000 ml MVI, Adult with Vitamin K [M.V.I. Adult] 10 ml IV 125 mls/hr Sodium Chloride 0.9% [Normal Saline] 1,000 ml IV ASDIRECTED 12/24/17 12:15 DRUG SCREEN, URINE [URCHEM] Stat 12/24/17 13:54 UA W/MICROSCOPIC [URIN] Stat
[2017-12-24] MEDS: Sodium Chloride 0.9% 1,000 ML IV SCH ×2 (09:45→18:12)
--- NOTE | 2017-12-24 09:51 | CT ---
Head CT Technique: Multiple axial sections through the brain were obtained. Intravenous contrast was not utilized. Comparison: Prior head CT exam of 12/06/17. Findings: Ventricles along with basal cisterns and sulci over the convexities are mildly prominent. No abnormal parenchymal densities are seen. No evidence of intracranial hemorrhage. No midline shift or mass effect is seen. Bone window settings were reviewed which shows no acute calvarial abnormality. Visualized sinuses are clear. Minimal atherosclerotic calcification is noted within the carotid siphon. Large pineal calcification is again noted which is stable and incidental. Impression: 1. Incidental findings. Nothing acute is seen on noncontrast head CT study. No significant change is seen from previous exam. Diagnostic code #2
[2017-12-24] MEDS: NACL IV SCH ×4 (10:37→19:26)
[2017-12-24] MEDS: VITAMIN K IV SCH ×4 (10:37→19:26)
[2017-12-24] MEDS: DEXTROSE IV SCH ×4 (10:37→19:26)
[2017-12-24] MEDS: MVI IV SCH ×4 (10:37→19:26)
[2017-12-24] MEDS ORDERED: Ketorolac 30 MG/ML SDV IVPUSH ONE (10:38)
[2017-12-24] MEDS ORDERED: Lactulose Soln 10 GM/15 ML 30 ML UD Cup PO ONE (12:29)
[2017-12-24] MEDS ORDERED: Bisacodyl 5 MG Tab PO PRN (13:23)
[2017-12-24] MEDS ORDERED: Magnesium Hydroxide 400 MG/5 ML Susp 30 ML Cup PO PRN (13:23)
[2017-12-24] MEDS ORDERED: Morphine 4 MG/ML Syringe IVPUSH PRN (13:23)
[2017-12-24] MEDS ORDERED: Docusate Sodium 100 MG Cap PO PRN (13:23)
[2017-12-24] MEDS ORDERED: Promethazine 25 MG Tab PO PRN (13:23)
[2017-12-24] MEDS ORDERED: Ondansetron 4 MG/2 ML SDV IV PRN (13:23)
[2017-12-24] MEDS ORDERED: Albuterol/Ipratropium 3.0-0.5 MG/3 ML Neb Soln NEB PRN (13:23)
[2017-12-24] MEDS ORDERED: Acetaminophen 325 MG Tab PO PRN (13:23)
[2017-12-24] MEDS ORDERED: Polyethylene Glycol 3350 Powder 17 GM Packet PO PRN (13:23)
[2017-12-24] MEDS ORDERED: Ondansetron 4 MG Tab.DIS PO PRN (13:23)
[2017-12-24] MEDS: Nicotine 21 MG/24 Hr Patch TRDERM SCH (14:11)
[2017-12-24] MEDS: Enoxaparin 40 MG/0.4 ML Syringe SUBCUT SCH (14:11)
[2017-12-24] MEDS ORDERED: LORazepam 2 MG/ML SDV IVPUSH PRN (14:31)
[2017-12-24] MEDS: Hydrochlorothiazide 25 MG Tab PO SCH (14:37)
[2017-12-24] MEDS: Aspirin 81 MG Tab.Chew PO SCH (14:37)
[2017-12-24] MEDS: Acetaminophen/HYDROcodone 325-5 MG Tab PO PRN (14:38)
[2017-12-24] MEDS: Potassium Chloride 20 MEQ Tab.ER PO SCH ×2 (14:42→20:48)
[2017-12-24] MEDS: Rifaximin 550 MG Tab PO SCH ×2 (14:42→20:48)
[2017-12-24] MEDS: Biotin/Folic Acid/Vitamin C/Vitamin B Complex Tab PO SCH (14:42)
[2017-12-24] MEDS: Multivitamins,Therapeutic Tab PO SCH (14:42)
[2017-12-24] MEDS: Magnesium Oxide 400 MG Tab PO SCH ×2 (14:42→20:48)
--- NOTE | 2017-12-24 14:46 | PCM.HP ---
H&P History of Present Illness - General Date of Service: 12/24/17 Admit Problem/Dx: Admission Diagnosis/Problem Admission Diagnosis/Problem Encephalopathy Source of Information: Patient, Old Records, Provider, RN Notes Reviewed History Limitations: Reports: No Limitations - History of Present Illness Initial Comments - Free Text/Narative: This is a 62 yo female with past medical hx/o EtOH abuse, hepatic encephalopathy , alcoholic liver disease, chronic anemia, hypomagnesemia, esophageal varices s/ p banding, CKD stage II, suspected medical noncompliance who comes in for altered mental status. She was here for similar symptoms just over 2 weeks ago. She states she "finished taking" her lactulose at home. She denies any recent drinking, stating her last drink was 2 weeks ago. She reports she has also had a 3/10 headache for about 2 weeks and frequent nose bleeds. She denies fever, chills, headache, nausea, vomiting, diarrhea, chest pain, shortness of breath, or other GI/ complaints. Her symptoms improved after receiving IV fluids, thiamine, multivitamin, folic acid, and lactulose in the ED. Her initial workup in the ED shows a CBC with WBC of 4.29, Hgb 13.5, Hct 39.5, MCHC of 34.2, neutrophils of 50.6% and lymphocyte of 30.5% and is remarkable for RBC 3.93, MCV 100.5, RDW 47.6, Plt 135. Her coagulation study shows PT of 11.8, INR of 1.08, APTT of 30. Her chemistry shows Creatinine 0.9, Glucose 102, Troponin <0.017, Total protein of 8.1, Albumin of 3.6 and is remarkable for K 3.4, CO2 20, Anion Gap 19.4, BUN 29 , Mg 1.5, Bilirubin 1.8, AST 68, ALT 60, Alk phos 125, Ammonia 65, CRP 1.2. UA is not impressive for UTI. Head CT shows no acute abnormal findings. Toxicology was negative. EtOH was 0. She is subsequently admitted to the ICU. She is a full code. Her PCP is Joyce Parish at [place]. Headache Pain Score (Numeric/FACES): 7 - Related Data Allergies/Adverse Reactions: Allergies Allergy/AdvReac Type Severity Reaction Status Date / Time nitrofurantoin Allergy Rash Verified 12/24/17 15:49 [From Macrobid] nitrofurantoin Allergy Rash Verified 12/24/17 15:49 macrocrystalline [From Macrobid] codeine AdvReac Upset Verified 12/24/17 15:49 Stomach Home Medications: Home Meds Folic Acid 1 mg PO DAILY 10/04/15 [History] Omeprazole 20 mg PO BIDAC 10/04/15 [History] Potassium Chloride 20 meq PO BID 10/04/15 [History] Venlafaxine HCl [Venlafaxine ER] 150 mg PO DAILY 10/04/15 [History] Aspirin 81 mg PO DAILY 12/07/17 [History] Betamethasone Dipropionate [Diprosone 0.05% Crm] 0 gm TOP BID PRN 12/07/17 [ History] Eszopiclone [Lunesta] 2 mg PO BEDTIME PRN 12/07/17 [History] Hydrochlorothiazide 25 mg PO DAILY 12/07/17 [History] Nadolol [Corgard] 40 mg PO DAILY 12/07/17 [History] Rifaximin [Xifaxan] 550 mg PO BID 12/07/17 [History] Triamcinolone Acetonide [Triamcinolone Acetonide 0.1% Crm] 15 gm .XX DAILY 12/07 [History] Azithromycin [Zithromax] 250 mg PO DAILY #4 ml 12/08/17 [Rx] Biotin/FA/Vit C/Vit B Complex [Nephrocaps] 1 tab PO DAILY #30 tablet 12/08/17 [ Rx] Lactulose [Cephulac] 30 gm PO DAILY #480 ml 12/08/17 [Rx] Nicotine [NTS] 1 each TD DAILY #30 patch.td24 12/08/17 [Rx] Sucralfate [Carafate] 1 gm PO QIDACANDBED #480 ml 12/08/17 [Rx] Thiamine [Vitamin B-1] 100 mg PO DAILY #30 tablet 12/08/17 [Rx] Magnesium Oxide 400 mg PO TID 12/24/17 [History] Past Medical History HEENT History: Reports: Cataract Cardiovascular History: Reports: Hypertension Gastrointestinal History: Reports: Cirrhosis, Pancreatitis, Other (See Below) Other Gastrointestinal History: Possible cirrhosis Genitourinary History: Reports: Urinary Incontinence 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: Other (See Below) Other OB/BYN History: Psychiatric History: Reports: Addiction, Anxiety Other Psychiatric History: alcohol, Endocrine/Metabolic History: Reports: Osteoporosis Hematologic History: Reports: Anemia, Iron Deficiency Dermatologic History: Reports: Other (See Below) Other Dermatologic History: biopsy to L ankle - Infectious Disease History Infectious Disease History: Reports: C-Difficile - Past Surgical History HEENT Surgical History: Reports: None Cardiovascular Surgical History: Reports: None GI Surgical History: Reports: Colonoscopy, EGD, Other (See Below) Social & Family History - Family History Family Medical History: Noncontributory - Tobacco Use Smoking Status *Q: Current Every Day Smoker Years of Tobacco use: 40 Packs/Tins Daily: 0.5 Used Tobacco, but Quit: No Second Hand Smoke Exposure: Yes - Caffeine Use Caffeine Use: Reports: Coffee, Tea Other Caffeine Use: 1/day - Alcohol Use Days Per Week of Alcohol Use: 7 Number of Drinks Per Day: 8 Total Drinks Per Week: 56 - Recreational Drug Use Recreational Drug Use: No - Living Situation & Occupation Living situation: Reports: , with Spouse 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 Denies: Fever, Chills, Weakness, Decreased Appetite HEENT: Reports: Headaches (3/10), Other (frequent nose bleeds, last one 10 min ago) Pulmonary: Reports: No Symptoms. Denies: Shortness of Breath Cardiovascular: Reports: No Symptoms. Denies: Chest Pain, Edema Gastrointestinal: Reports: No Symptoms. Denies: Abdominal Pain, Diarrhea, Nausea, Vomiting Genitourinary: Reports: No Symptoms Musculoskeletal: Reports: No Symptoms Skin: Reports: No Symptoms Psychiatric: Reports: No Symptoms Neurological: Reports: Headache Hematologic/Lymphatic: Reports: No Symptoms Immunologic: Reports: No Symptoms Exam - Exam Exam: See Below - Vital Signs Vital Signs: Last Vital Signs Temp 98.8 F 12/24/17 12:46 Pulse 98 12/24/17 09:11 Resp 13 12/24/17 14:00 BP 117/86 12/24/17 12:46 Pulse Ox 100 12/24/17 14:00 Weight: 100 lb - Exam Quality Assessment: DVT Prophylaxis. No: Supplemental Oxygen, Urinary Catheter General: Alert, Oriented, Cooperative, Mild Distress HEENT: PERRLA, Hearing Intact, Mucosa Moist & [place], Nares Patent, Normal Nasal Septum, Posterior Pharynx Clear, Conjunctiva Clear, EOMI, EACs Clear, TMs Clear Neck: Supple, Trachea Midline, 2 Lungs: Clear to Auscultation, Normal Respiratory Effort Cardiovascular: Regular Rate, Regular Rhythm GI/Abdominal Exam: Normal Bowel Sounds, Soft, Non-Tender, No Organomegaly, No Distention, No Abnormal Bruit, No Mass, Pelvis Stable (Female) Exam: Deferred Rectal (Female) Exam: Deferred Back Exam: Normal Inspection, Full Range of Motion, NT Extremities: Normal Inspection, Normal Range of Motion, Non-Tender, No Pedal Edema, Normal Capillary Refill Peripheral Pulses: 2+: Radial (L), Radial (R), Posterior Tibial (L), Posterior Tibial (R), Dorsalis Pedis (L), Dorsalis Pedis (R) Skin: Warm, Dry, Intact Neurological: Cranial Nerves Intact (grossly), Reflexes Equal Bilateral Neuro Extensive - Mental Status: Alert, Oriented x3, Normal Mood/Affect, Normal Cognition, Memory Intact Psychiatric: Alert, Normal Affect, Normal Mood - Patient Data Lab Results Last 24 hrs: Laboratory Results - last 24 hr 12/24/17 12/24/17 12/24/17 Range/Units 09:20 09:20 09:20 WBC 4.29 (3.98-10.04) K/mm3 RBC 3.93 L (3.98-5.22) M/mm3 Hgb 13.5 (11.2-15.7) gm/L Hct 39.5 (34.1-44.9) % MCV 100.5 H (79.4-94.8) fl MCH 34.4 H (25.6-32.2) pg MCHC 34.2 (32.2-35.5) g/dl RDW Std Deviation 47.6 H (36.4-46.3) fL Plt Count 135 L (182-369) K/mm3 MPV 10.6 (9.4-12.3) fl Neut % (Auto) 50.6 (34.0-71.1) % Lymph % (Auto) 30.5 (19.3-51.7) % [place] % (Auto) 15.9 H (4.7-12.5) % Eos % (Auto) 2.3 (0.7-5.8) Baso % (Auto) 0.5 (0.1-1.2) % Neut # (Auto) 2.17 (1.56-6.13) K/mm3 Lymph # (Auto) 1.31 (1.18-3.74) K/mm3 [place] # (Auto) 0.68 H (0.24-0.36) K/mm3 Eos # (Auto) 0.10 (0.04-0.36) K/mm3 Baso # (Auto) 0.02 (0.01-0.08) K/mm3 Manual Slide Review Normal smear PT 11.8 (9.5-12.1) SECONDS INR 1.08 APTT 30 (24-31) SECONDS Sodium 142 (136-145) mEq/L Potassium 3.4 L (3.5-5.1) mEq/L Chloride 106 (98-107) mEq/L Carbon Dioxide 20 L (21-32) mEq/L Anion Gap 19.4 H (5-15) BUN 29 H (7-18) mg/dL Creatinine 0.9 (0.55-1.02) mg/dL Est Cr Clr Drug Dosing 47.00 mL/min Estimated GFR (MDRD) > 60 (>60) mL/min BUN/Creatinine Ratio 32.2 H (14-18) Glucose 102 (80-115) mg/dL Calcium 10.0 (8.5-10.1) mg/dL Magnesium (1.8-2.4) mg/dl Total Bilirubin 1.8 H (0.2-1.0) mg/dL AST 68 H (15-37) U/L ALT 60 H (14-59) U/L Alkaline Phosphatase 125 H (46-116) U/L Ammonia (11-32) umol/L Troponin I < 0.017 (0.00-0.056) ng/mL C-Reactive Protein 1.2 H* (<1.0) mg/dL Total Protein 8.1 (6.4-8.2) g/dl Albumin 3.6 (3.4-5.0) g/dl Globulin 4.5 gm/dL Albumin/Globulin Ratio 0.8 L (1-2) Urine Color (Yellow) Urine Appearance (Clear) Urine pH (5.0-8.0) Ur Specific [place] (1.005-1.030) Urine Protein (Negative) Urine Glucose (UA) (Negative) Urine Ketones (Negative) Urine Occult Blood (Negative) Urine Nitrite (Negative) Urine Bilirubin (Negative) Urine Urobilinogen (0.2-1.0) Ur Leukocyte Esterase (Negative) Urine RBC (0-5) /hpf Urine WBC (0-5) /hpf Ur Epithelial Cells (0-5) /hpf Urine Bacteria (FEW) /hpf Urine Mucus (FEW) /hpf Urine Opiates Screen (NEGATIVE) Ur Buprenorphine Scrn (NEGATIVE) Ur Oxycodone Screen (NEGATIVE) Urine Methadone Screen (NEGATIVE) Ur Propoxyphene Screen (NEGATIVE) Ur Barbiturates Screen (NEGATIVE) Ur Tricyclics Screen (NEGATIVE) Ur Phencyclidine Scrn (NEGATIVE) Ur Amphetamine Screen (NEGATIVE) U Methamphetamines Scrn (NEGATIVE) U Benzodiazepines Scrn (NEGATIVE) U Cocaine Metab Screen (NEGATIVE) U Marijuana (THC) Screen (NEGATIVE) Ethyl Alcohol 0.00 (0.00) gm% 12/24/17 12/24/17 12/24/17 Range/Units 10:15 10:15 12:15 WBC (3.98-10.04) K/mm3 RBC (3.98-5.22) M/mm3 Hgb (11.2-15.7) gm/L Hct (34.1-44.9) % MCV (79.4-94.8) fl MCH (25.6-32.2) pg MCHC (32.2-35.5) g/dl RDW Std Deviation (36.4-46.3) fL Plt Count (182-369) K/mm3 MPV (9.4-12.3) fl Neut % (Auto) (34.0-71.1) % Lymph % (Auto) (19.3-51.7) % [place] % (Auto) (4.7-12.5) % Eos % (Auto) (0.7-5.8) Baso % (Auto) (0.1-1.2) % Neut # (Auto) (1.56-6.13) K/mm3 Lymph # (Auto) (1.18-3.74) K/mm3 [place] # (Auto) (0.24-0.36) K/mm3 Eos # (Auto) (0.04-0.36) K/mm3 Baso # (Auto) (0.01-0.08) K/mm3 Manual Slide Review PT (9.5-12.1) SECONDS INR APTT (24-31) SECONDS Sodium (136-145) mEq/L Potassium (3.5-5.1) mEq/L Chloride (98-107) mEq/L Carbon Dioxide (21-32) mEq/L Anion Gap (5-15) BUN (7-18) mg/dL Creatinine (0.55-1.02) mg/dL Est Cr Clr Drug Dosing mL/min Estimated GFR (MDRD) (>60) mL/min BUN/Creatinine Ratio (14-18) Glucose (80-115) mg/dL Calcium (8.5-10.1) mg/dL Magnesium 1.5 L (1.8-2.4) mg/dl Total Bilirubin (0.2-1.0) mg/dL AST (15-37) U/L ALT (14-59) U/L Alkaline Phosphatase (46-116) U/L Ammonia 65 H (11-32) umol/L Troponin I (0.00-0.056) ng/mL C-Reactive Protein (<1.0) mg/dL Total Protein (6.4-8.2) g/dl Albumin (3.4-5.0) g/dl Globulin gm/dL Albumin/Globulin Ratio (1-2) Urine Color (Yellow) Urine Appearance (Clear) Urine pH (5.0-8.0) Ur Specific [place] (1.005-1.030) Urine Protein (Negative) Urine Glucose (UA) (Negative) Urine Ketones (Negative) Urine Occult Blood (Negative) Urine Nitrite (Negative) Urine Bilirubin (Negative) Urine Urobilinogen (0.2-1.0) Ur Leukocyte Esterase (Negative) Urine RBC (0-5) /hpf Urine WBC (0-5) /hpf Ur Epithelial Cells (0-5) /hpf Urine Bacteria (FEW) /hpf Urine Mucus (FEW) /hpf Urine Opiates Screen Negative (NEGATIVE) Ur Buprenorphine Scrn Negative (NEGATIVE) Ur Oxycodone Screen Negative (NEGATIVE) Urine Methadone Screen Negative (NEGATIVE) Ur Propoxyphene Screen Negative (NEGATIVE) Ur Barbiturates Screen Negative (NEGATIVE) Ur Tricyclics Screen Negative (NEGATIVE) Ur Phencyclidine Scrn Negative (NEGATIVE) Ur Amphetamine Screen Negative (NEGATIVE) U Methamphetamines Scrn Negative (NEGATIVE) U Benzodiazepines Scrn Negative (NEGATIVE) U Cocaine Metab Screen Negative (NEGATIVE) U Marijuana (THC) Screen Negative (NEGATIVE) Ethyl Alcohol (0.00) gm% 12/24/17 Range/Units 12:20 WBC (3.98-10.04) K/mm3 RBC (3.98-5.22) M/mm3 Hgb (11.2-15.7) gm/L Hct (34.1-44.9) % MCV (79.4-94.8) fl MCH (25.6-32.2) pg MCHC (32.2-35.5) g/dl RDW Std Deviation (36.4-46.3) fL Plt Count (182-369) K/mm3 MPV (9.4-12.3) fl Neut % (Auto) (34.0-71.1) % Lymph % (Auto) (19.3-51.7) % [place] % (Auto) (4.7-12.5) % Eos % (Auto) (0.7-5.8) Baso % (Auto) (0.1-1.2) % Neut # (Auto) (1.56-6.13) K/mm3 Lymph # (Auto) (1.18-3.74) K/mm3 [place] # (Auto) (0.24-0.36) K/mm3 Eos # (Auto) (0.04-0.36) K/mm3 Baso # (Auto) (0.01-0.08) K/mm3 Manual Slide Review PT (9.5-12.1) SECONDS INR APTT (24-31) SECONDS Sodium (136-145) mEq/L Potassium (3.5-5.1) mEq/L Chloride (98-107) mEq/L Carbon Dioxide (21-32) mEq/L Anion Gap (5-15) BUN (7-18) mg/dL Creatinine (0.55-1.02) mg/dL Est Cr Clr Drug Dosing mL/min Estimated GFR (MDRD) (>60) mL/min BUN/Creatinine Ratio (14-18) Glucose (80-115) mg/dL Calcium (8.5-10.1) mg/dL Magnesium (1.8-2.4) mg/dl Total Bilirubin (0.2-1.0) mg/dL AST (15-37) U/L ALT (14-59) U/L Alkaline Phosphatase (46-116) U/L Ammonia (11-32) umol/L Troponin I (0.00-0.056) ng/mL C-Reactive Protein (<1.0) mg/dL Total Protein (6.4-8.2) g/dl Albumin (3.4-5.0) g/dl Globulin gm/dL Albumin/Globulin Ratio (1-2) Urine Color Yellow (Yellow) Urine Appearance Clear (Clear) Urine pH 5.5 (5.0-8.0) Ur Specific [place] 1.025 (1.005-1.030) Urine Protein Negative (Negative) Urine Glucose (UA) Negative (Negative) Urine Ketones Negative (Negative) Urine Occult Blood Trace-intact H (Negative) Urine Nitrite Negative (Negative) Urine Bilirubin Negative (Negative) Urine Urobilinogen 0.2 (0.2-1.0) Ur Leukocyte Esterase Negative (Negative) Urine RBC Not seen (0-5) /hpf Urine WBC Not seen (0-5) /hpf Ur Epithelial Cells 0-5 (0-5) /hpf Urine Bacteria Not seen (FEW) /hpf Urine Mucus Not seen (FEW) /hpf Urine Opiates Screen (NEGATIVE) Ur Buprenorphine Scrn (NEGATIVE) Ur Oxycodone Screen (NEGATIVE) Urine Methadone Screen (NEGATIVE) Ur Propoxyphene Screen (NEGATIVE) Ur Barbiturates Screen (NEGATIVE) Ur Tricyclics Screen (NEGATIVE) Ur Phencyclidine Scrn (NEGATIVE) Ur Amphetamine Screen (NEGATIVE) U Methamphetamines Scrn (NEGATIVE) U Benzodiazepines Scrn (NEGATIVE) U Cocaine Metab Screen (NEGATIVE) U Marijuana (THC) Screen (NEGATIVE) Ethyl Alcohol (0.00) gm% Result Diagrams: 12/24/17 09:20 12/24/17 09:20 - Problem List (1) Hypokalemia SNOMED Code(s): 93518672 ICD Code: E87.6 - HYPOKALEMIA Status: Acute Priority: Medium Current Visit: Yes (2) Medical non-compliance SNOMED Code(s): 062298039 ICD Code: Z91.19 - PATIENT'S NONCOMPLIANCE W OTH MEDICAL TREATMENT AND REGIMEN Status: Chronic Priority: High Current Visit: Yes (3) Esophageal varices determined by endoscopy SNOMED Code(s): 21915965, 746205319 ICD Code: I85.00 - ESOPHAGEAL VARICES WITHOUT BLEEDING Status: Chronic Priority: Low Current Visit: No (4) CKD (chronic kidney disease), stage II SNOMED Code(s): 167061449 ICD Code: N18.2 - CHRONIC KIDNEY DISEASE, STAGE 2 (MILD) Status: Chronic Priority: Medium Current Visit: Yes (5) Chronic anemia SNOMED Code(s): 482445287 ICD Code: D64.9 - ANEMIA, UNSPECIFIED Status: Chronic Priority: Medium Current Visit: No (6) Hepatic encephalopathy SNOMED Code(s): 24292930 ICD Code: K72.90 - HEPATIC FAILURE, UNSPECIFIED WITHOUT COMA Status: Acute Priority: High Current Visit: Yes (7) Hypomagnesemia SNOMED Code(s): 346523639 ICD Code: E83.42 - HYPOMAGNESEMIA Status: Acute Priority: Medium Current Visit: Yes (8) Alcoholism SNOMED Code(s): 6947017 ICD Code: F10.20 - ALCOHOL DEPENDENCE, UNCOMPLICATED Status: Chronic Priority: Low Current Visit: No (9) Liver disease due to alcohol SNOMED Code(s): 28363210 ICD Code: K70.9 - ALCOHOLIC LIVER DISEASE, UNSPECIFIED Status: Chronic Priority: High Current Visit: Yes Problem List Initiated/Reviewed/Updated: Yes Orders Last 24hrs: Active Orders 24 hr Category Date Time Status Patient Status [ADT] Routine ADT 12/24/17 12:36 Active Blood Glucose Check, Bedside [RC] BIDMEALS Care 12/24/17 13:23 Active Cardiac Monitoring [RC] . DIRECTED Care 12/24/17 09:17 Active Height and Weight [RC] DAILY Care 12/24/17 13:23 Active Intake and Output [RC] 04,16 Care 12/24/17 13:24 Active Notify Provider Consults [RC] ASDIRECTED Care 12/24/17 13:40 Active Oxygen Therapy [RC] PRN Care 12/24/17 13:23 Active Peripheral IV Care [RC] . DIRECTED Care 12/24/17 09:18 Active Pulse Oximetry [RC] PRN Care 12/24/17 13:29 Active RT Aerosol Therapy [RC] .PRN Care 12/24/17 13:37 Active Up ad Marva [RC] ASDIRECTED Care 12/24/17 13:23 Active VTE/DVT Education [RC] PER UNIT ROUTINE Care 12/24/17 13:23 Active Vital Signs [RC] Q4HR Care 12/24/17 13:23 Active Consult for Substance Abuse [CONS] Routine Cons 12/24/17 13:47 Active Consult to Case Management [CONS] Routine Cons 12/24/17 13:38 Active Consult to Physician [CONS] Routine Cons 12/24/17 13:38 Active Consult to [place] [CONS] Routine Cons 12/24/17 13:38 Active Consult to Spiritual Care [CONS] Routine Cons 12/24/17 13:38 Active PT Evaluation and Treatment [CONS] Routine Cons 12/24/17 13:38 Active Regular Diet [DIET] Diet 12/24/17 Dinner Active BASIC METABOLIC PANEL,BMP [CHEM] AM Lab 12/25/17 05:11 Ordered BASIC METABOLIC PANEL,BMP [CHEM] AM Lab 12/26/17 05:11 Ordered BASIC METABOLIC PANEL,BMP [CHEM] AM Lab 12/27/17 05:11 Ordered BASIC METABOLIC PANEL,BMP [CHEM] AM Lab 12/28/17 05:11 Ordered C-REACTIVE PROTEIN [CHEM] AM Lab 12/25/17 05:11 Ordered C-REACTIVE PROTEIN [CHEM] AM Lab 12/26/17 05:11 Ordered C-REACTIVE PROTEIN [CHEM] AM Lab 12/27/17 05:11 Ordered C-REACTIVE PROTEIN [CHEM] AM Lab 12/28/17 05:11 Ordered CBC WITH AUTO DIFF [HEME] AM Lab 12/25/17 05:11 Ordered CBC WITH AUTO DIFF [HEME] AM Lab 12/26/17 05:11 Ordered CBC WITH AUTO DIFF [HEME] AM Lab 12/27/17 05:11 Ordered CBC WITH AUTO DIFF [HEME] AM Lab 12/28/17 05:11 Ordered DRUG SCREEN, URINE [URCHEM] Stat Lab 12/24/17 12:15 Ordered MAGNESIUM [CHEM] AM Lab 12/25/17 05:11 Ordered MAGNESIUM [CHEM] AM Lab 12/26/17 05:11 Ordered MAGNESIUM [CHEM] AM Lab 12/27/17 05:11 Ordered MAGNESIUM [CHEM] AM Lab 12/28/17 05:11 Ordered POTASSIUM,K [CHEM] AM Lab 12/25/17 05:11 Ordered POTASSIUM,K [CHEM] AM Lab 12/26/17 05:11 Ordered POTASSIUM,K [CHEM] AM Lab 12/27/17 05:11 Ordered POTASSIUM,K [CHEM] AM Lab 12/28/17 05:11 Ordered UA W/MICROSCOPIC [URIN] Stat Lab 12/24/17 13:54 Ordered Acetaminophen [Tylenol] Med 12/24/17 13:23 Active 650 mg PO Q4H PRN Acetaminophen/HYDROcodone [[place] 325-5 MG] Med 12/24/17 13:23 Active 1 tab PO Q4H PRN Albuterol/Ipratropium [DuoNeb 3.0-0.5 MG/3 ML] Med 12/24/17 13:23 Active 3 ml NEB Q4H PRN Aspirin Med 12/24/17 14:00 Active 81 mg PO DAILY Biotin/FA/Vit C/Vit B Complex [Nephrocaps] Med 12/24/17 14:15 Active 1 tab PO DAILY Bisacodyl [Dulcolax] Med 12/24/17 13:23 Active 5 mg PO DAILY PRN Dextrose 5%-0.45% NaCl [Dextrose 5%-1/2 NS] 1,000 ml Med 12/24/17 09:30 Active MVI, Adult with Vitamin K [M.V.I. Adult] 10 ml IV 125 mls/hr Docusate Sodium [Colace] Med 12/24/17 13:23 Active 100 mg PO BID PRN Docusate Sodium/Sennosides [Senna Plus] Med 12/24/17 13:23 Active 1 tab PO BID PRN Enoxaparin [Lovenox] Med 12/24/17 13:45 Active 40 mg SUBCUT DAILY Folic Acid Med 12/25/17 09:00 Active 1 mg PO DAILY Hydrochlorothiazide Med 12/24/17 14:15 Active 25 mg PO DAILY LORazepam [Ativan] Med 12/24/17 14:31 Ordered 0.25 mg IVPUSH Q4H PRN Lactulose [Cephulac] Med 12/25/17 09:00 Active 30 gm PO DAILY Magnesium Hydroxide [Milk of Magnesia] Med 12/24/17 13:23 Active 30 ml PO Q12H PRN Magnesium Oxide Med 12/24/17 15:00 Active 400 mg PO TID Morphine Med 12/24/17 13:23 Active 2 mg IVPUSH Q2H PRN Multivitamins,Therapeutic [Thera] Med 12/24/17 14:45 Ordered 1 each PO DAILY Nadolol [Naldol] Med 12/24/17 14:15 Active 40 mg PO DAILY Nicotine [Habitrol] Med 12/24/17 13:30 Active 21 mg TRDERM DAILY Ondansetron [Zofran ODT] Med 12/24/17 13:23 Active 4 mg PO Q6H PRN Ondansetron [Zofran] Med 12/24/17 13:23 Active 4 mg IV Q6H PRN Polyethylene Glycol 3350 [MiraLAX] Med 12/24/17 13:23 Active 17 gm PO DAILY PRN Potassium Chloride [Klor-Con M20] Med 12/24/17 14:15 Active 20 meq PO BID Promethazine [Phenergan] Med 12/24/17 13:23 Active 25 mg PO Q6H PRN Remove Patch Med 12/25/17 09:00 Active 0 ea TRDERM DAILY Rifaximin [Xifaxan] Med 12/24/17 14:15 Active 550 mg PO BID Sodium Chloride 0.9% [Normal Saline] 1,000 ml Med 12/24/17 09:30 Active IV ASDIRECTED Sodium Chloride 0.9% [Saline Flush] Med 12/24/17 13:37 Active 10 ml FLUSH ASDIRECTED PRN Sucralfate [Carafate] Med 12/24/17 17:00 Active 1 gm PO QIDACANDBED Temazepam [Restoril] Med 12/24/17 21:00 Active 7.5 mg PO BEDTIME PRN Thiamine [Vitamin B-1] Med 12/25/17 09:00 Active 100 mg PO DAILY Triamcinolone Acetonide [Triamcinolone Acetonide 0.1% Med 12/25/17 09:00 Ordered Crm] 15 gm .XX DAILY Venlafaxine Med 12/25/17 09:00 Ordered 150 mg PO DAILY Peripheral IV Insertion Adult [OM.PC] Stat Oth 12/24/17 09:17 Ordered Saline Lock Insert [OM.PC] Routine Oth 12/24/17 13:23 Ordered Sequential Compression Device [OM.PC] Per Unit Routine Oth 12/24/17 13:30 Ordered Resuscitation Status Routine Resus Stat 12/24/17 13:23 Ordered Medication Orders Acetaminophen (Tylenol) 650 mg PO Q4H PRN PRN Reason: Pain (Mild 1-3)/fever Hydrocodone Bitart/Acetaminophen ([place] 325-5 Mg) 1 tab PO Q4H PRN PRN Reason: Pain (moderate 4-6) Albuterol/Ipratropium (Duoneb 3.0-0.5 Mg/3 Ml) 3 ml NEB Q4H PRN PRN Reason: Shortness Of Breath/wheezing Aspirin (Aspirin) 81 mg PO DAILY REPLACED BY [facility] Bisacodyl (Dulcolax) 5 mg PO DAILY PRN PRN Reason: Constipation Docusate Sodium (Colace) 100 mg PO BID PRN PRN Reason: Constipation Enoxaparin Sodium (Lovenox) 40 mg SUBCUT DAILY REPLACED BY [facility] Last Admin: 12/24/17 14:11 Dose: 40 mg Folic Acid (Folic Acid) 1 mg PO DAILY REPLACED BY [facility] Hydrochlorothiazide (Hydrochlorothiazide) 25 mg PO DAILY REPLACED BY [facility] Sodium Chloride (Normal Saline) 1,000 mls @ 125 mls/hr IV ASDIRECTED REPLACED BY [facility] Last Admin: 12/24/17 09:45 Dose: 125 mls/hr Multivitamins/Minerals 10 ml/ (Dextrose/Sodium Chloride) 1,010 mls @ 125 mls/ hr IV .Q8H5M REPLACED BY [facility] Last Admin: 12/24/17 10:37 Dose: 125 mls/hr Lactulose (Cephulac) 30 gm PO DAILY REPLACED BY [facility] Lorazepam (Ativan) 0.25 mg IVPUSH Q4H PRN PRN Reason: Anxiety Magnesium Hydroxide (Milk Of Magnesia) 30 ml PO Q12H PRN PRN Reason: Constipation Magnesium Oxide (Magnesium Oxide) 400 mg PO TID REPLACED BY [facility] Miscellaneous Information (Remove Patch) 0 ea TRDERM DAILY REPLACED BY [facility] Morphine Sulfate (Morphine) 2 mg IVPUSH Q2H PRN PRN Reason: Pain (severe 7-10) Stop: 12/25/17 13:34 Multivitamins (Thera) 1 each PO DAILY REPLACED BY [facility] Nadolol (Naldol) 40 mg PO DAILY REPLACED BY [facility] Nicotine (Habitrol) 21 mg TRDERM DAILY REPLACED BY [facility] Last Admin: 12/24/17 14:11 Dose: 21 mg Ondansetron HCl (Zofran Odt) 4 mg PO Q6H PRN PRN Reason: nausea, able to take PO Ondansetron HCl (Zofran) 4 mg IV Q6H PRN PRN Reason: Nausea/Vomiting Polyethylene Glycol (Miralax) 17 gm PO DAILY PRN PRN Reason: Constipation Potassium Chloride (Klor-Con M20) 20 meq PO BID [facility] Promethazine HCl (Phenergan) 25 mg PO Q6H PRN PRN Reason: Nausea/Vomiting Rifaximin (Xifaxan) 550 mg PO BID [facility] Senna/Docusate Sodium (Senna Plus) 1 tab PO BID PRN PRN Reason: Constipation Sodium Chloride (Saline Flush) 10 ml FLUSH ASDIRECTED PRN PRN Reason: Keep Vein Open Sucralfate (Carafate) 1 gm PO QIDACANDBED [facility] Temazepam (Restoril) 7.5 mg PO BEDTIME PRN PRN Reason: Sleep Thiamine HCl (Vitamin B-1) 100 mg PO DAILY REPLACED BY [facility] Triamcinolone Acetonide (Triamcinolone Acetonide 0.1% Crm) 0 gm TOP DAILY [facility] Venlafaxine HCl (Effexor Xr) 150 mg PO DAILY REPLACED BY [facility] Vitamin B Complex/Vit C/Folic Acid (Nephrocaps) 1 tab PO DAILY REPLACED BY [facility] Assessment/Plan Comment:: Acute: Hepatic encephalopathy with AMS -Risk factors: Previous encephalopathy, EtOH abuse, medical non-compliance -Acute on Chronic -2/2 Advanced Liver disease and medical non compliance--> stopped taking Lactulose bc thought it was only a temporary prescription. -Ammonia level on admission: 65 -No need for serial ammonia level -Avoid NSAIDS -IVF, MVI, Folic Acid, Thiamine supplementation -Resume at home meds: Lactulose and Xifaxin -F/u with GI specialist in [place] after discharge-->per pt already has appointment next week for EGD Electrolyte abnormalities: Hypokalemia/Hypomagnesemia -Replete and follow with daily labs -K 3.4; Mg 1.5 Thrombocytopenia -2/2 alcoholic liver dz -Plt: 135 -Monitor Alcohol use/abuse/dependence -States last drink was 2 weeks ago; has chronic EtOH history -EtOH 0 today -Inpatient treatment 2 years ago, was sober for 2-3 months -Has shown interest in outpatient rehab/treatment--> consult CM/SW -AA, Spiritual care consults, Psychiatry consults -CIWAA protocol Tobacco use/dependence -Smokes 1/2 ppd -Smoking cessation education -Nicotine patch Chronic: Alcoholic liver disease Esophageal varicies s/p banding--> repeat EGD in 1 week with GI specialist Medical Noncompliance--> h/o not taking medications Other: GI prophylaxis--> Protonix; also at-home Carafate AC/HS here DVT prophylaxis: Lovenox PT/OT- ambulate CM/SW for assist with DC planning-->OP alcohol treatment options PCP is ESTRADA Recinos with [facility] She is Full Code status.
[2017-12-24] MEDS: Sucralfate Suspension 1 GM/10 ML Cup PO SCH ×2 (17:15→21:48)
[2017-12-24] MEDS ORDERED: Sodium Chloride 0.9% 1,000 ML IV SCH (19:00)
[2017-12-25] MEDS: Acetaminophen/HYDROcodone 325-5 MG Tab PO PRN ×2 (03:27→08:02)
[2017-12-25] MEDS: Sucralfate Suspension 1 GM/10 ML Cup PO SCH ×4 (06:09→21:10)
--- NOTE | 2017-12-25 06:17 | PCM.PN ---
- General Info Date of Service: 12/25/17 Admission Dx/Problem (Free Text): Admission Diagnosis/Problem Admission Diagnosis/Problem Encephalopathy Subjective Update: Follow Up Functional Status: Reports: Pain Controlled, Tolerating Diet, Ambulating, Urinating - Review of Systems General: Denies: Fever, Weakness, Fatigue, Malaise, Chills HEENT: Reports: No Symptoms Pulmonary: Denies: Shortness of Breath, Pleuritic Chest Pain, Cough Cardiovascular: Denies: Chest Pain Gastrointestinal: Reports: Diarrhea. Denies: Abdominal Pain, Constipation, Nausea, Vomiting Genitourinary: Reports: No Symptoms Musculoskeletal: Reports: No Symptoms Skin: Denies: Cyanosis, Jaundice, Mottled, Pallor, Diaphoresis, Pruritis Neurological: Denies: Confusion, Dizziness, Difficulty Walking, Weakness, Gait Disturbance Psychiatric: Denies: Depression, Anxiety, Agitation, Hallucinations Systems Review Comment:: No overnight or acute issues. She slept pretty good. She has no acute issues this morning. Her Mg level is low at 1.4 this AM. - Patient Data Vitals - Most Recent: Last Vital Signs Temp 36.4 C 12/25/17 04:00 Pulse 76 12/25/17 04:00 Resp 14 12/25/17 04:00 BP 110/66 12/25/17 04:00 Pulse Ox 97 12/25/17 04:00 Weight - Most Recent: 52.617 kg I&O - Last 24 Hours: Intake & Output 12/24/17 12/24/17 12/25/17 14:59 22:59 06:59 Intake Total 120 1641 1661 Output Total 300 950 350 Balance -870 091 7005 Lab Results Last 24 Hours: Laboratory Results - last 24 hr 12/24/17 12/24/17 12/24/17 Range/Units 09:20 09:20 09:20 WBC 4.29 (3.98-10.04) K/mm3 RBC 3.93 L (3.98-5.22) M/mm3 Hgb 13.5 (11.2-15.7) gm/L Hct 39.5 (34.1-44.9) % MCV 100.5 H (79.4-94.8) fl MCH 34.4 H (25.6-32.2) pg MCHC 34.2 (32.2-35.5) g/dl RDW Std Deviation 47.6 H (36.4-46.3) fL Plt Count 135 L (182-369) K/mm3 MPV 10.6 (9.4-12.3) fl Neut % (Auto) 50.6 (34.0-71.1) % Lymph % (Auto) 30.5 (19.3-51.7) % [place] % (Auto) 15.9 H (4.7-12.5) % Eos % (Auto) 2.3 (0.7-5.8) Baso % (Auto) 0.5 (0.1-1.2) % Neut # (Auto) 2.17 (1.56-6.13) K/mm3 Lymph # (Auto) 1.31 (1.18-3.74) K/mm3 [place] # (Auto) 0.68 H (0.24-0.36) K/mm3 Eos # (Auto) 0.10 (0.04-0.36) K/mm3 Baso # (Auto) 0.02 (0.01-0.08) K/mm3 Manual Slide Review Normal smear PT 11.8 (9.5-12.1) SECONDS INR 1.08 APTT 30 (24-31) SECONDS Sodium 142 (136-145) mEq/L Potassium 3.4 L (3.5-5.1) mEq/L Chloride 106 (98-107) mEq/L Carbon Dioxide 20 L (21-32) mEq/L Anion Gap 19.4 H (5-15) BUN 29 H (7-18) mg/dL Creatinine 0.9 (0.55-1.02) mg/dL Est Cr Clr Drug Dosing 47.00 mL/min Estimated GFR (MDRD) > 60 (>60) mL/min BUN/Creatinine Ratio 32.2 H (14-18) Glucose 102 (80-115) mg/dL POC Glucose (80-115) mg/dL Calcium 10.0 (8.5-10.1) mg/dL Magnesium (1.8-2.4) mg/dl Total Bilirubin 1.8 H (0.2-1.0) mg/dL AST 68 H (15-37) U/L ALT 60 H (14-59) U/L Alkaline Phosphatase 125 H (46-116) U/L Ammonia (11-32) umol/L Troponin I < 0.017 (0.00-0.056) ng/mL C-Reactive Protein 1.2 H* (<1.0) mg/dL Total Protein 8.1 (6.4-8.2) g/dl Albumin 3.6 (3.4-5.0) g/dl Globulin 4.5 gm/dL Albumin/Globulin Ratio 0.8 L (1-2) Urine Color (Yellow) Urine Appearance (Clear) Urine pH (5.0-8.0) Ur Specific [place] (1.005-1.030) Urine Protein (Negative) Urine Glucose (UA) (Negative) Urine Ketones (Negative) Urine Occult Blood (Negative) Urine Nitrite (Negative) Urine Bilirubin (Negative) Urine Urobilinogen (0.2-1.0) Ur Leukocyte Esterase (Negative) Urine RBC (0-5) /hpf Urine WBC (0-5) /hpf Ur Epithelial Cells (0-5) /hpf Urine Bacteria (FEW) /hpf Urine Mucus (FEW) /hpf Urine Opiates Screen (NEGATIVE) Ur Buprenorphine Scrn (NEGATIVE) Ur Oxycodone Screen (NEGATIVE) Urine Methadone Screen (NEGATIVE) Ur Propoxyphene Screen (NEGATIVE) Ur Barbiturates Screen (NEGATIVE) Ur Tricyclics Screen (NEGATIVE) Ur Phencyclidine Scrn (NEGATIVE) Ur Amphetamine Screen (NEGATIVE) U Methamphetamines Scrn (NEGATIVE) U Benzodiazepines Scrn (NEGATIVE) U Cocaine Metab Screen (NEGATIVE) U Marijuana (THC) Screen (NEGATIVE) Ethyl Alcohol 0.00 (0.00) gm% 12/24/17 12/24/17 12/24/17 Range/Units 10:15 10:15 12:15 WBC (3.98-10.04) K/mm3 RBC (3.98-5.22) M/mm3 Hgb (11.2-15.7) gm/L Hct (34.1-44.9) % MCV (79.4-94.8) fl MCH (25.6-32.2) pg MCHC (32.2-35.5) g/dl RDW Std Deviation (36.4-46.3) fL Plt Count (182-369) K/mm3 MPV (9.4-12.3) fl Neut % (Auto) (34.0-71.1) % Lymph % (Auto) (19.3-51.7) % [place] % (Auto) (4.7-12.5) % Eos % (Auto) (0.7-5.8) Baso % (Auto) (0.1-1.2) % Neut # (Auto) (1.56-6.13) K/mm3 Lymph # (Auto) (1.18-3.74) K/mm3 [place] # (Auto) (0.24-0.36) K/mm3 Eos # (Auto) (0.04-0.36) K/mm3 Baso # (Auto) (0.01-0.08) K/mm3 Manual Slide Review PT (9.5-12.1) SECONDS INR APTT (24-31) SECONDS Sodium (136-145) mEq/L Potassium (3.5-5.1) mEq/L Chloride (98-107) mEq/L Carbon Dioxide (21-32) mEq/L Anion Gap (5-15) BUN (7-18) mg/dL Creatinine (0.55-1.02) mg/dL Est Cr Clr Drug Dosing mL/min Estimated GFR (MDRD) (>60) mL/min BUN/Creatinine Ratio (14-18) Glucose (80-115) mg/dL POC Glucose (80-115) mg/dL Calcium (8.5-10.1) mg/dL Magnesium 1.5 L (1.8-2.4) mg/dl Total Bilirubin (0.2-1.0) mg/dL AST (15-37) U/L ALT (14-59) U/L Alkaline Phosphatase (46-116) U/L Ammonia 65 H (11-32) umol/L Troponin I (0.00-0.056) ng/mL C-Reactive Protein (<1.0) mg/dL Total Protein (6.4-8.2) g/dl Albumin (3.4-5.0) g/dl Globulin gm/dL Albumin/Globulin Ratio (1-2) Urine Color (Yellow) Urine Appearance (Clear) Urine pH (5.0-8.0) Ur Specific [place] (1.005-1.030) Urine Protein (Negative) Urine Glucose (UA) (Negative) Urine Ketones (Negative) Urine Occult Blood (Negative) Urine Nitrite (Negative) Urine Bilirubin (Negative) Urine Urobilinogen (0.2-1.0) Ur Leukocyte Esterase (Negative) Urine RBC (0-5) /hpf Urine WBC (0-5) /hpf Ur Epithelial Cells (0-5) /hpf Urine Bacteria (FEW) /hpf Urine Mucus (FEW) /hpf Urine Opiates Screen Negative (NEGATIVE) Ur Buprenorphine Scrn Negative (NEGATIVE) Ur Oxycodone Screen Negative (NEGATIVE) Urine Methadone Screen Negative (NEGATIVE) Ur Propoxyphene Screen Negative (NEGATIVE) Ur Barbiturates Screen Negative (NEGATIVE) Ur Tricyclics Screen Negative (NEGATIVE) Ur Phencyclidine Scrn Negative (NEGATIVE) Ur Amphetamine Screen Negative (NEGATIVE) U Methamphetamines Scrn Negative (NEGATIVE) U Benzodiazepines Scrn Negative (NEGATIVE) U Cocaine Metab Screen Negative (NEGATIVE) U Marijuana (THC) Screen Negative (NEGATIVE) Ethyl Alcohol (0.00) gm% 12/24/17 12/24/17 Range/Units 12:20 16:51 WBC (3.98-10.04) K/mm3 RBC (3.98-5.22) M/mm3 Hgb (11.2-15.7) gm/L Hct (34.1-44.9) % MCV (79.4-94.8) fl MCH (25.6-32.2) pg MCHC (32.2-35.5) g/dl RDW Std Deviation (36.4-46.3) fL Plt Count (182-369) K/mm3 MPV (9.4-12.3) fl Neut % (Auto) (34.0-71.1) % Lymph % (Auto) (19.3-51.7) % [place] % (Auto) (4.7-12.5) % Eos % (Auto) (0.7-5.8) Baso % (Auto) (0.1-1.2) % Neut # (Auto) (1.56-6.13) K/mm3 Lymph # (Auto) (1.18-3.74) K/mm3 [place] # (Auto) (0.24-0.36) K/mm3 Eos # (Auto) (0.04-0.36) K/mm3 Baso # (Auto) (0.01-0.08) K/mm3 Manual Slide Review PT (9.5-12.1) SECONDS INR APTT (24-31) SECONDS Sodium (136-145) mEq/L Potassium (3.5-5.1) mEq/L Chloride (98-107) mEq/L Carbon Dioxide (21-32) mEq/L Anion Gap (5-15) BUN (7-18) mg/dL Creatinine (0.55-1.02) mg/dL Est Cr Clr Drug Dosing mL/min Estimated GFR (MDRD) (>60) mL/min BUN/Creatinine Ratio (14-18) Glucose (80-115) mg/dL POC Glucose 93 (80-115) mg/dL Calcium (8.5-10.1) mg/dL Magnesium (1.8-2.4) mg/dl Total Bilirubin (0.2-1.0) mg/dL AST (15-37) U/L ALT (14-59) U/L Alkaline Phosphatase (46-116) U/L Ammonia (11-32) umol/L Troponin I (0.00-0.056) ng/mL C-Reactive Protein (<1.0) mg/dL Total Protein (6.4-8.2) g/dl Albumin (3.4-5.0) g/dl Globulin gm/dL Albumin/Globulin Ratio (1-2) Urine Color Yellow (Yellow) Urine Appearance Clear (Clear) Urine pH 5.5 (5.0-8.0) Ur Specific [place] 1.025 (1.005-1.030) Urine Protein Negative (Negative) Urine Glucose (UA) Negative (Negative) Urine Ketones Negative (Negative) Urine Occult Blood Trace-intact H (Negative) Urine Nitrite Negative (Negative) Urine Bilirubin Negative (Negative) Urine Urobilinogen 0.2 (0.2-1.0) Ur Leukocyte Esterase Negative (Negative) Urine RBC Not seen (0-5) /hpf Urine WBC Not seen (0-5) /hpf Ur Epithelial Cells 0-5 (0-5) /hpf Urine Bacteria Not seen (FEW) /hpf Urine Mucus Not seen (FEW) /hpf Urine Opiates Screen (NEGATIVE) Ur Buprenorphine Scrn (NEGATIVE) Ur Oxycodone Screen (NEGATIVE) Urine Methadone Screen (NEGATIVE) Ur Propoxyphene Screen (NEGATIVE) Ur Barbiturates Screen (NEGATIVE) Ur Tricyclics Screen (NEGATIVE) Ur Phencyclidine Scrn (NEGATIVE) Ur Amphetamine Screen (NEGATIVE) U Methamphetamines Scrn (NEGATIVE) U Benzodiazepines Scrn (NEGATIVE) U Cocaine Metab Screen (NEGATIVE) U Marijuana (THC) Screen (NEGATIVE) Ethyl Alcohol (0.00) gm% Med Orders - Current: Current Medications Acetaminophen (Tylenol) 650 mg PO Q4H PRN PRN Reason: Pain (Mild 1-3)/fever Hydrocodone Bitart/Acetaminophen ([place]up[place] 325-5 Mg) 1 tab PO Q4H PRN PRN Reason: Pain (moderate 4-6) Last Admin: 12/25/17 03:27 Dose: 1 tab Albuterol/Ipratropium (Duoneb 3.0-0.5 Mg/3 Ml) 3 ml NEB Q4H PRN PRN Reason: Shortness Of Breath/wheezing Aspirin (Aspirin) 81 mg PO DAILY [facility] Last Admin: 12/24/17 14:37 Dose: 81 mg Bisacodyl (Dulcolax) 5 mg PO DAILY PRN PRN Reason: Constipation Docusate Sodium (Colace) 100 mg PO BID PRN PRN Reason: Constipation Enoxaparin Sodium (Lovenox) 40 mg SUBCUT DAILY [facility] Last Admin: 12/24/17 14:11 Dose: 40 mg Folic Acid (Folic Acid) 1 mg PO DAILY [facility] Hydrochlorothiazide (Hydrochlorothiazide) 25 mg PO DAILY [facility] Last Admin: 12/24/17 14:37 Dose: 25 mg Sodium Chloride (Normal Saline) 1,000 mls @ 50 mls/hr IV ASDIRECTED [facility] Lactulose (Cephulac) 30 gm PO DAILY [facility] Lorazepam (Ativan) 0.25 mg IVPUSH Q4H PRN PRN Reason: Anxiety Magnesium Hydroxide (Milk Of Magnesia) 30 ml PO Q12H PRN PRN Reason: Constipation Magnesium Oxide (Magnesium Oxide) 400 mg PO TID [facility] Last Admin: 12/24/17 20:48 Dose: 400 mg Miscellaneous Information (Remove Patch) 0 ea TRDERM DAILY [facility] Morphine Sulfate (Morphine) 2 mg IVPUSH Q2H PRN PRN Reason: Pain (severe 7-10) Stop: 12/25/17 13:34 Multivitamins (Thera) 1 each PO DAILY [facility] Last Admin: 12/24/17 14:42 Dose: 1 each Nadolol (Naldol) 40 mg PO DAILY [facility] Last Admin: 12/24/17 14:38 Dose: 40 mg Nicotine (Habitrol) 21 mg TRDERM DAILY [facility] Last Admin: 12/24/17 14:11 Dose: 21 mg Ondansetron HCl (Zofran Odt) 4 mg PO Q6H PRN PRN Reason: nausea, able to take PO Ondansetron HCl (Zofran) 4 mg IV Q6H PRN PRN Reason: Nausea/Vomiting Polyethylene Glycol (Miralax) 17 gm PO DAILY PRN PRN Reason: Constipation Potassium Chloride (Klor-Con M20) 20 meq PO BID [facility] Last Admin: 12/24/17 20:48 Dose: 20 meq Promethazine HCl (Phenergan) 25 mg PO Q6H PRN PRN Reason: Nausea/Vomiting Rifaximin (Xifaxan) 550 mg PO BID [facility] Last Admin: 12/24/17 20:48 Dose: 550 mg Senna/Docusate Sodium (Senna Plus) 1 tab PO BID PRN PRN Reason: Constipation Sodium Chloride (Saline Flush) 10 ml FLUSH ASDIRECTED PRN PRN Reason: Keep Vein Open Sucralfate (Carafate) 1 gm PO QIDACANDBED [facility] Last Admin: 12/25/17 06:09 Dose: 1 gm Temazepam (Restoril) 7.5 mg PO BEDTIME PRN PRN Reason: Sleep Thiamine HCl (Vitamin B-1) 100 mg PO DAILY [facility] Triamcinolone Acetonide (Triamcinolone Acetonide 0.1% Crm) 0 gm TOP DAILY [facility] Venlafaxine HCl (Effexor Xr) 150 mg PO DAILY [facility] Vitamin B Complex/Vit C/Folic Acid (Nephrocaps) 1 tab PO DAILY [facility] Last Admin: 12/24/17 14:42 Dose: 1 tab Discontinued Medications Folic Acid (Folic Acid) 1 mg PO ONETIME ONE Stop: 12/24/17 09:20 Last Admin: 12/24/17 09:58 Dose: 1 mg Sodium Chloride (Normal Saline) 1,000 mls @ 125 mls/hr IV ASDIRECTED [facility] Last Infusion: 12/24/17 18:53 Dose: 50 mls/hr Thiamine HCl 100 mg/ Sodium (Chloride) 101 mls @ 202 mls/hr IV ONETIME ONE Stop: 12/24/17 09:20 Last Admin: 12/24/17 09:56 Dose: 202 mls/hr Multivitamins/Minerals 10 ml/ (Dextrose/Sodium Chloride) 1,010 mls @ 125 mls/ hr IV .Q8H5M BIANCA Stop: 12/24/17 18:00 Last Admin: 12/24/17 19:26 Dose: Not Given Ketorolac Tromethamine (Toradol) 30 mg IVPUSH ONETIME ONE Stop: 12/24/17 10:39 Last Admin: 12/24/17 11:04 Dose: 30 mg Lactulose (Cephulac) 20 gm PO ONETIME ONE Stop: 12/24/17 12:30 Last Admin: 12/24/17 13:20 Dose: 20 gm Sodium Chloride (Saline Flush) 10 ml FLUSH ASDIRECTED PRN PRN Reason: Keep Vein Open Last Admin: 12/24/17 09:46 Dose: 10 ml - Exam General: Alert, Cooperative, No Acute Distress HEENT: Pupils Equal, Pupils Reactive, EOMI, Mucous Membr. Moist/[place] Neck: Supple, Trachea Midline, No JVD, No Thyromegaly Lungs: Clear to Auscultation, Normal Respiratory Effort Cardiovascular: Regular Rate, Regular Rhythm GI/Abdominal Exam: Normal Bowel Sounds, Soft, Non-Tender, No Organomegaly, No Distention, No Abnormal Bruit, No Mass (Female) Exam: Deferred Back Exam: Normal Inspection, Decreased Range of Motion Extremities: Normal Inspection, Normal Range of Motion, Non-Tender, No Pedal Edema, Normal Capillary Refill Peripheral Pulses: 2+: Dorsalis Pedis (L), Dorsalis Pedis (R) Skin: Warm, Dry, Intact Neurological: No New Focal Deficit Psy/Mental Status: Alert, Normal Affect, Normal Mood. No: Anxious, Agitated, Suicidal Ideation, Hallucinations, Withdrawal Symptoms - Problem List Review Problem List Initiated/Reviewed/Updated: Yes - My Orders Last 24 Hours: My Active Orders 12/24/17 19:00 Sodium Chloride 0.9% [Normal Saline] 1,000 ml IV ASDIRECTED - Plan Plan:: Assessment/Plan: Acute: Hepatic Encephalopathy/AMS, Improved -Risk factors: Previous Encephalopathy, ETOH Abuse, Medical non-compliance -Acute on Chronic -2/2 Advanced Liver disease and medical non compliance--> stopped taking Lactulose bc thought it was only a temporary prescription. -Ammonia level on admission: 65--> repeat level in AM -No need for serial ammonia level -Avoid NSAIDS -IVF, MVI, Folic Acid, Thiamine Supplementation -Resume at home meds: Lactulose and Xifaxan -F/u with GI specialist in [place] after discharge-->per pt already has appointment next week for EGD Electrolyte Abnormalities: -S/p Hypokalemia K 3.6 -Hypomagnesemia; Mg 1.4 -Replete and monitor Thrombocytopenia, Slightly low -2/2 alcoholic liver dz -Plt: 135--> 120 -Monitor Alcohol Use/Abuse/Dependence -States last drink was 2 weeks ago; has chronic ETOH history -EtOH 0 today -Inpatient treatment 2 years ago, was sober for 2-3 months -Has shown interest in outpatient rehab/treatment--> consult CM/SW -AA, Spiritual care consults, Psychiatry consults -CIWAA protocol Tobacco Use/Dependence -Smokes 1/2 ppd -Smoking cessation education -Nicotine patch Chronic: Alcoholic liver disease Esophageal varicies s/p banding--> repeat EGD in 1 week with GI specialist Medical Noncompliance--> h/o not taking medications Other: She is clinically better Transfer to Med-Surg Continue current treatment GI prophylaxis--> Protonix; also at-home Carafate AC/HS here DVT prophylaxis: Lovenox Consult PT/OT CM/SW for assist with DC planning-->OP alcohol treatment options SA/Psych Consult PCP is ESTRADA Recinos with [facility] She is Full Code status.
[2017-12-25] MEDS: Thiamine 100 MG Tab PO SCH (08:02)
[2017-12-25] MEDS: Magnesium Oxide 400 MG Tab PO SCH ×3 (08:02→20:28)
[2017-12-25] MEDS: Hydrochlorothiazide 25 MG Tab PO SCH (08:03)
[2017-12-25] MEDS: Potassium Chloride 20 MEQ Tab.ER PO SCH ×2 (08:04→20:27)
[2017-12-25] MEDS: Biotin/Folic Acid/Vitamin C/Vitamin B Complex Tab PO SCH (08:04)
[2017-12-25] MEDS: Rifaximin 550 MG Tab PO SCH ×2 (08:04→20:28)
[2017-12-25] MEDS: Aspirin 81 MG Tab.Chew PO SCH (08:04)
[2017-12-25] MEDS: Folic Acid 1 MG Tab PO SCH (08:05)
[2017-12-25] MEDS: Venlafaxine 75 MG Cap.ER PO SCH (08:05)
[2017-12-25] MEDS: Multivitamins,Therapeutic Tab PO SCH (08:06)
[2017-12-25] MEDS: Enoxaparin 40 MG/0.4 ML Syringe SUBCUT SCH (08:06)
[2017-12-25] MEDS: Lactulose Soln 10 GM/15 ML 30 ML UD Cup PO SCH (08:06)
[2017-12-25] MEDS: Nicotine 21 MG/24 Hr Patch TRDERM SCH (08:14)
[2017-12-25] MEDS: Triamcinolone Acetonide 0.1% Crm 15 GM Tube TOP SCH (08:34)
[2017-12-25] MEDS: Temazepam 7.5 MG Cap PO PRN (21:10)
[2017-12-26] MEDS: Sucralfate Suspension 1 GM/10 ML Cup PO SCH ×4 (06:01→21:45)
--- NOTE | 2017-12-26 07:56 | PCM.PN ---
- General Info Date of Service: 12/26/17 Admission Dx/Problem (Free Text): Admission Diagnosis/Problem Admission Diagnosis/Problem Encephalopathy Subjective Update: Follow Up Functional Status: Reports: Pain Controlled, Tolerating Diet, Ambulating, Urinating - Review of Systems General: Denies: Fever, Weakness, Fatigue, Malaise, Chills HEENT: Reports: No Symptoms Pulmonary: Reports: No Symptoms Cardiovascular: Denies: Chest Pain, Palpitations, Lightheadedness Gastrointestinal: Reports: Diarrhea. Denies: Abdominal Pain, Nausea, Vomiting Genitourinary: Reports: No Symptoms, Burning Musculoskeletal: Reports: No Symptoms Skin: Denies: Jaundice, Mottled, Pallor Neurological: Denies: Confusion, Difficulty Walking, Gait Disturbance Psychiatric: Denies: Depression, Anxiety Systems Review Comment:: No overnight or acute issues. She slept good. She has no complaints this morning. Her Ammonia level is 98 on today's lab. She wants to go home today. - Patient Data Vitals - Most Recent: Last Vital Signs Temp 36.1 C 12/26/17 03:00 Pulse 71 12/26/17 03:00 Resp 14 12/26/17 03:00 BP 99/62 12/26/17 03:00 Pulse Ox 96 12/26/17 03:00 Weight - Most Recent: 53.025 kg I&O - Last 24 Hours: Intake & Output 12/25/17 12/26/17 12/26/17 22:59 06:59 14:59 Intake Total 500 1200 Balance 500 1200 Lab Results Last 24 Hours: Laboratory Results - last 24 hr 12/26/17 12/26/17 12/26/17 Range/Units 05:55 05:55 05:55 WBC 5.12 (3.98-10.04) K/mm3 RBC 3.30 L (3.98-5.22) M/mm3 Hgb 11.2 (11.2-15.7) gm/L Hct 33.2 L (34.1-44.9) % MCV 100.6 H (79.4-94.8) fl MCH 33.9 H (25.6-32.2) pg MCHC 33.7 (32.2-35.5) g/dl RDW Std Deviation 45.9 (36.4-46.3) fL Plt Count 129 L (182-369) K/mm3 MPV 10.7 (9.4-12.3) fl Neut % (Auto) 46.5 (34.0-71.1) % Lymph % (Auto) 33.8 (19.3-51.7) % [place] % (Auto) 15.8 H (4.7-12.5) % Eos % (Auto) 3.5 (0.7-5.8) Baso % (Auto) 0.2 (0.1-1.2) % Neut # (Auto) 2.38 (1.56-6.13) K/mm3 Lymph # (Auto) 1.73 (1.18-3.74) K/mm3 [place] # (Auto) 0.81 H (0.24-0.36) K/mm3 Eos # (Auto) 0.18 (0.04-0.36) K/mm3 Baso # (Auto) 0.01 (0.01-0.08) K/mm3 Manual Slide Review Abnormal smear Sodium 141 (136-145) mEq/L Potassium 4.0 (3.5-5.1) mEq/L Chloride 109 H (98-107) mEq/L Carbon Dioxide 22 (21-32) mEq/L Anion Gap 14.0 (5-15) BUN 19 H (7-18) mg/dL Creatinine 0.6 (0.55-1.02) mg/dL Est Cr Clr Drug Dosing 82.42 mL/min Estimated GFR (MDRD) > 60 (>60) mL/min BUN/Creatinine Ratio 31.7 H (14-18) Glucose 102 (80-115) mg/dL Calcium 9.5 (8.5-10.1) mg/dL Magnesium 1.2 L (1.8-2.4) mg/dl Ammonia 98 H (11-32) umol/L C-Reactive Protein 0.7 (<1.0) mg/dL Med Orders - Current: Current Medications Acetaminophen (Tylenol) 650 mg PO Q4H PRN PRN Reason: Pain (Mild 1-3)/fever Hydrocodone Bitart/Acetaminophen ([place] 325-5 Mg) 1 tab PO Q4H PRN PRN Reason: Pain (moderate 4-6) Last Admin: 12/25/17 08:02 Dose: 1 tab Albuterol/Ipratropium (Duoneb 3.0-0.5 Mg/3 Ml) 3 ml NEB Q4H PRN PRN Reason: Shortness Of Breath/wheezing Aspirin (Aspirin) 81 mg PO DAILY COUNT INCLUDES THE [facility] Last Admin: 12/25/17 08:04 Dose: 81 mg Bisacodyl (Dulcolax) 5 mg PO DAILY PRN PRN Reason: Constipation Docusate Sodium (Colace) 100 mg PO BID PRN PRN Reason: Constipation Enoxaparin Sodium (Lovenox) 40 mg SUBCUT DAILY COUNT INCLUDES THE [facility] Last Admin: 12/25/17 08:06 Dose: 40 mg Folic Acid (Folic Acid) 1 mg PO DAILY COUNT INCLUDES THE [facility] Last Admin: 12/25/17 08:05 Dose: 1 mg Hydrochlorothiazide (Hydrochlorothiazide) 25 mg PO DAILY COUNT INCLUDES THE [facility] Last Admin: 12/25/17 08:03 Dose: Not Given Lactulose (Cephulac) 30 gm PO DAILY COUNT INCLUDES THE [facility] Last Admin: 12/25/17 08:06 Dose: 30 gm Lorazepam (Ativan) 0.25 mg IVPUSH Q4H PRN PRN Reason: Anxiety Magnesium Hydroxide (Milk Of Magnesia) 30 ml PO Q12H PRN PRN Reason: Constipation Magnesium Oxide (Magnesium Oxide) 400 mg PO TID COUNT INCLUDES THE [facility] Last Admin: 12/25/17 20:28 Dose: 400 mg Miscellaneous Information (Remove Patch) 0 ea TRDERM DAILY COUNT INCLUDES THE [facility] Last Admin: 12/25/17 08:05 Dose: 1 ea Multivitamins (Thera) 1 each PO DAILY COUNT INCLUDES THE [facility] Last Admin: 12/25/17 08:06 Dose: 1 each Nadolol (Naldol) 40 mg PO DAILY COUNT INCLUDES THE [facility] Last Admin: 12/25/17 08:04 Dose: Not Given Nicotine (Habitrol) 21 mg TRDERM DAILY COUNT INCLUDES THE [facility] Last Admin: 12/25/17 08:14 Dose: 21 mg Ondansetron HCl (Zofran Odt) 4 mg PO Q6H PRN PRN Reason: nausea, able to take PO Ondansetron HCl (Zofran) 4 mg IV Q6H PRN PRN Reason: Nausea/Vomiting Polyethylene Glycol (Miralax) 17 gm PO DAILY PRN PRN Reason: Constipation Potassium Chloride (Klor-Con M20) 20 meq PO BID COUNT INCLUDES THE [facility] Last Admin: 12/25/17 20:27 Dose: 20 meq Promethazine HCl (Phenergan) 25 mg PO Q6H PRN PRN Reason: Nausea/Vomiting Rifaximin (Xifaxan) 550 mg PO BID COUNT INCLUDES THE [facility] Last Admin: 12/25/17 20:28 Dose: 550 mg Senna/Docusate Sodium (Senna Plus) 1 tab PO BID PRN PRN Reason: Constipation Sodium Chloride (Saline Flush) 10 ml FLUSH ASDIRECTED PRN PRN Reason: Keep Vein Open Sucralfate (Carafate) 1 gm PO QIDACANDBED COUNT INCLUDES THE [facility] Last Admin: 12/26/17 06:01 Dose: 1 gm Temazepam (Restoril) 7.5 mg PO BEDTIME PRN PRN Reason: Sleep Last Admin: 12/25/17 21:10 Dose: 7.5 mg Thiamine HCl (Vitamin B-1) 100 mg PO DAILY COUNT INCLUDES THE [facility] Last Admin: 12/25/17 08:02 Dose: 100 mg Triamcinolone Acetonide (Triamcinolone Acetonide 0.1% Crm) 0 gm TOP DAILY COUNT INCLUDES THE [facility] Last Admin: 12/25/17 08:34 Dose: 1 applic Venlafaxine HCl (Effexor Xr) 150 mg PO DAILY COUNT INCLUDES THE [facility] Last Admin: 12/25/17 08:05 Dose: 150 mg Vitamin B Complex/Vit C/Folic Acid (Nephrocaps) 1 tab PO DAILY COUNT INCLUDES THE [facility] Last Admin: 12/25/17 08:04 Dose: 1 tab Discontinued Medications Folic Acid (Folic Acid) 1 mg PO ONETIME ONE Stop: 12/24/17 09:20 Last Admin: 12/24/17 09:58 Dose: 1 mg Sodium Chloride (Normal Saline) 1,000 mls @ 125 mls/hr IV ASDIRECTED COUNT INCLUDES THE [facility] Last Infusion: 12/24/17 18:53 Dose: 50 mls/hr Thiamine HCl 100 mg/ Sodium (Chloride) 101 mls @ 202 mls/hr IV ONETIME ONE Stop: 12/24/17 09:20 Last Admin: 12/24/17 09:56 Dose: 202 mls/hr Multivitamins/Minerals 10 ml/ (Dextrose/Sodium Chloride) 1,010 mls @ 125 mls/ hr IV .Q8H5M COUNT INCLUDES THE [facility] Stop: 12/24/17 18:00 Last Admin: 12/24/17 19:26 Dose: Not Given Sodium Chloride (Normal Saline) 1,000 mls @ 50 mls/hr IV ASDIRECTED COUNT INCLUDES THE [facility] Ketorolac Tromethamine (Toradol) 30 mg IVPUSH ONETIME ONE Stop: 12/24/17 10:39 Last Admin: 12/24/17 11:04 Dose: 30 mg Lactulose (Cephulac) 20 gm PO ONETIME ONE Stop: 12/24/17 12:30 Last Admin: 12/24/17 13:20 Dose: 20 gm Morphine Sulfate (Morphine) 2 mg IVPUSH Q2H PRN PRN Reason: Pain (severe 7-10) Stop: 12/25/17 13:34 Sodium Chloride (Saline Flush) 10 ml FLUSH ASDIRECTED PRN PRN Reason: Keep Vein Open Last Admin: 12/24/17 09:46 Dose: 10 ml - Exam General: Alert, Oriented, Cooperative, No Acute Distress HEENT: Pupils Equal, Pupils Reactive, EOMI, Mucous Membr. Moist/[place] Neck: Supple, Trachea Midline, No JVD Lungs: Normal Respiratory Effort Cardiovascular: Regular Rate, Regular Rhythm GI/Abdominal Exam: Normal Bowel Sounds, Soft, Non-Tender, No Organomegaly, No Distention, No Abnormal Bruit, No Mass (Female) Exam: Deferred Back Exam: Normal Inspection, Full Range of Motion Extremities: Normal Inspection, Normal Range of Motion, Non-Tender, No Pedal Edema, Normal Capillary Refill Peripheral Pulses: 2+: Dorsalis Pedis (L), Dorsalis Pedis (R) Skin: Warm, Dry, Intact Wound/Incisions: Healing Well Neurological: No New Focal Deficit Psy/Mental Status: Alert, Normal Affect, Normal Mood - Problem List Review Problem List Initiated/Reviewed/Updated: Yes - My Orders Last 24 Hours: My Active Orders 12/25/17 07:29 Admission Status [Patient Status] [ADT] Routine - Plan Plan:: Assessment/Plan: Acute: Hepatic Encephalopathy/AMS, At baseline -Risk factors: Previous Encephalopathy, ETOH Abuse, Medical non-compliance -Acute on Chronic -2/2 Advanced Liver disease and medical non compliance--> stopped taking Lactulose bc thought it was only a temporary prescription. -Ammonia level on admission: 65--> repeat level in AM -No need for serial ammonia level -Avoid NSAIDS -IVF, MVI, Folic Acid, Thiamine Supplementation -Resume at home meds: Lactulose and Xifaxan -F/u with GI specialist in [place] after discharge-->per pt already has appointment next week for EGD Hypomagnesemia -Mg 1.4---> 1.2 -Replete and monitor Thrombocytopenia, Improving -2/2 alcoholic liver dz -Plt: 135--> 120 --> 129 -Monitor Alcohol Use/Abuse/Dependence -States last drink was 2 weeks ago; has chronic ETOH history -EtOH 0 today -Inpatient treatment 2 years ago, was sober for 2-3 months -Has shown interest in outpatient rehab/treatment--> consult CM/SW -AA, Spiritual care consults, Psychiatry consults -CIWAA protocol Tobacco Use/Dependence -Smokes /2 ppd -Smoking cessation education -Nicotine patch Chronic: Alcoholic liver disease Esophageal varicies s/p banding--> repeat EGD in 1 week with GI specialist Medical Noncompliance--> h/o not taking medications Other: She is clinically Stable Continue current treatment GI prophylaxis--> Protonix; also at-home Carafate AC/HS here DVT prophylaxis: Lovenox Consult PT/OT CM/SW for assist with DC planning-->OP alcohol treatment options Awaiting SA/Psych Consult PCP is ESTRADA Recinos with [facility] She is Full Code status.
[2017-12-26] MEDS: Potassium Chloride 20 MEQ Tab.ER PO SCH ×2 (09:50→21:45)
[2017-12-26] MEDS: Lactulose Soln 10 GM/15 ML 30 ML UD Cup PO SCH (09:51)
[2017-12-26] MEDS: Aspirin 81 MG Tab.Chew PO SCH (09:51)
[2017-12-26] MEDS: Venlafaxine 75 MG Cap.ER PO SCH (09:56)
[2017-12-26] MEDS: Folic Acid 1 MG Tab PO SCH (09:56)
[2017-12-26] MEDS: Nicotine 21 MG/24 Hr Patch TRDERM SCH (09:57)
[2017-12-26] MEDS: Enoxaparin 40 MG/0.4 ML Syringe SUBCUT SCH (09:59)
[2017-12-26] MEDS: Magnesium Oxide 400 MG Tab PO SCH ×3 (10:00→21:45)
[2017-12-26] MEDS: Biotin/Folic Acid/Vitamin C/Vitamin B Complex Tab PO SCH (10:01)
[2017-12-26] MEDS: Multivitamins,Therapeutic Tab PO SCH (10:04)
[2017-12-26] MEDS: Thiamine 100 MG Tab PO SCH (10:05)
[2017-12-26] MEDS: Hydrochlorothiazide 25 MG Tab PO SCH (10:13)
[2017-12-26] MEDS: Triamcinolone Acetonide 0.1% Crm 15 GM Tube TOP SCH (10:30)
[2017-12-26] MEDS: Rifaximin 550 MG Tab PO SCH ×2 (10:31→21:45)
[2017-12-26] MEDS: Magnesium Sulfate/Water 2 GM in Premix Bag 1 BAG IV SCH ×2 (15:07→17:16)
[2017-12-26] MEDS ORDERED: Lactulose Soln 10 GM/15 ML 30 ML UD Cup PO ONE (16:13)
[2017-12-26] MEDS ORDERED: Magnesium Sulfate/Water 50 ML ONE (17:14)
--- NOTE | 2017-12-26 22:03 | CONS ---
CONSULTING PHYSICIAN: Antwan Ramsey MD DATE OF CONSULTATION: 12/26/2017 This is a 60-minute inpatient clinical event. IDENTIFICATION: The patient is a 62-year-old female, who was admitted to the [facility] in [place], [place] on 12/24/2017. She is seen for psychiatric consultation. Her , Logan, is also present with the patient's consent for the entirety of the interview and he thus participating in interview as well. CHIEF COMPLAINT: "I am back because I misunderstood this liquid that I am taking." HISTORY OF PRESENT ILLNESS: The patient is a 62-year-old female, reports that she had been in the hospital last month after complications from alcohol use in combination with benzodiazepine use. Since she was medically stabilized at that point in time, she states that she has remained completely sober, noting "I have not had a drop" of alcohol and has not had any further benzodiazepines. She states that she has been taking the medications that she had been prescribed after discharge, but "then I ran out of all and I did not know I was supposed to keep taking them." Evidently, the patient began getting increasingly confused according to her as well as having even some possible psychotic symptoms where "I was seeing things," though were not there. She was brought back to the hospital by her and admitted after ER staff became concerned that the patient was experiencing high ammonia levels and hypomagnesemia. She has been getting stabilized on the unit and she states that she is feeling much better at this point in time. She states "I don't want to ," and she also notes "I am never going to drink again because I know if I do that will be the end of me." She states that she just wants to get better and she will be taking the medications that the doctor prescribed to her now that the confusion has been cleared up for her and her . She does also state that if she does not need any medication she would like to take as few as possible. At this point in time, she denies that she is suicidal or homicidal. She denies any psychotic, delusional, or paranoid symptoms. She denies any problems with depression or anxiety. She states that she simply wants to get better and get discharged from the hospital as "there is a lot of things I need to get done." MEDICATIONS: At time of presentation, Effexor XR 150 mg daily for depression. ALLERGIES: 1. Codeine. 2. Nitrofurantoin. PAST MEDICAL HISTORY: 1. High ammonia levels. 2. Low magnesium. REVIEW OF SYSTEMS: Electrolyte abnormalities. FAMILY PSYCHIATRIC AND CD HISTORY: Patient denies. PAST PSYCHIATRIC AND CD HISTORY: Patient denies any previous psychiatric hospitalizations or previous suicide attempts or self-injurious behaviors. Reports one chemical dependency treatment in 2016. past psychiatric diagnosis includes anxiety. Past psychiatric medication history includes Klonopin and Lunesta. PRIMARY NURSE PRACTITIONER: Jami Parish at [place]. SOCIAL HISTORY: The patient was born and raised in [place], [place]. 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 MENTAL STATUS EXAM: The patient is a 62-year-old soft-spoken white female, in no apparent distress. Speech is of regular rate and rhythm. The patient is cognitively oriented x3 to person, place, and time. Psychomotor activity is within normal limits. There is no abnormal motor movements or tics observed. Gait and station are not observed as the patient is lying in the bed for the purposes of the inpatient consult. Mood is good. Affect is calm and cooperative overall for the purposes of the inpatient consult. There is no behavioral or stated evidence of acute suicidal or homicidal ideation or acute psychotic, delusional, or paranoid symptoms. Thought processes are organized. No manic symptoms or loose associations evident. Judgment and insight appear unimpaired at this point in time. Motivation for help appears good. VITAL SIGNS: 118/57, 90, 16, and 98.2 degrees. IMPRESSION: [place] I: 1. History of alcohol dependence F10.20, currently in remission x1 month. 2. Depression, not otherwise specified, F32.9. 3. Past history of psychosis, not otherwise specified, F29. [place] II: None. [place] III: 1. High ammonia levels. 2. Low magnesium levels. 3. Rule out alcoholic hepatitis and complications stemming from such condition. [place] IV: Severe. [place] V: 65. PLAN: 1. Sobriety. 2. AA rep to visit the patient while on unit. 3. Pastoral guidance. 4. Thiamine supplementation. 5. Folic acid supplementation. 6. Other medications as dosed and prescribed by patient's inpatient primary medical treatment team. 7. We will continue to follow up with the patient on an as-needed basis while she remains on the inpatient medical unit. 8. We will follow up with the patient sooner if there are any complications in the interim. 9. The patient is not appearing to need any psychiatric intervention at this point in time, so we would recommend the patient continue to follow primary inpatient medical treatment team's treatment recommendations and protocol. 10.Crisis plan is in place. POLLY /[id number]
[2017-12-26] MEDS: Temazepam 7.5 MG Cap PO PRN (22:21)
[2017-12-27] MEDS: Sucralfate Suspension 1 GM/10 ML Cup PO SCH ×2 (06:26→13:08)
[2017-12-27] MEDS: Aspirin 81 MG Tab.Chew PO SCH (09:05)
[2017-12-27] MEDS: Thiamine 100 MG Tab PO SCH (09:05)
[2017-12-27] MEDS: Potassium Chloride 20 MEQ Tab.ER PO SCH (09:07)
[2017-12-27] MEDS: Hydrochlorothiazide 25 MG Tab PO SCH (09:07)
[2017-12-27] MEDS: Rifaximin 550 MG Tab PO SCH (09:07)
[2017-12-27] MEDS: Venlafaxine 75 MG Cap.ER PO SCH (09:07)
[2017-12-27] MEDS: Magnesium Oxide 400 MG Tab PO SCH (09:08)
[2017-12-27] MEDS: Nicotine 21 MG/24 Hr Patch TRDERM SCH (09:08)
[2017-12-27] MEDS: Folic Acid 1 MG Tab PO SCH (09:08)
[2017-12-27] MEDS: Biotin/Folic Acid/Vitamin C/Vitamin B Complex Tab PO SCH (09:08)
[2017-12-27] MEDS: Multivitamins,Therapeutic Tab PO SCH (09:08)
[2017-12-27] MEDS: Enoxaparin 40 MG/0.4 ML Syringe SUBCUT SCH (09:09)
[2017-12-27] MEDS: Triamcinolone Acetonide 0.1% Crm 15 GM Tube TOP SCH (09:09)
[2017-12-27] MEDS: Lactulose Soln 10 GM/15 ML 30 ML UD Cup PO SCH (09:10)
[2017-12-27 09:17] VITALS: BP 105/63
--- NOTE | 2017-12-27 13:12 | PCM.DCSUM1 ---
Discharge Summary - Hospital Course HPI Initial Comments: The patient presents because of hallucinations. The patient was brought in by her for hallucinations that started last night. She was actually admitted here over 2 weeks ago for the same. She was found to have an elevated ammonia level. She was admitted and given lactulose and she did good. She started having problems last night. She went to the bathroom on their bed spread. She was leaning up against the wall to go to the bathroom. She has been confused and off balance. Her is not sure if she drinking again. She has been a heavy drinker for years and in 2016 she was in treatment and did not drink for 5 months. She started again after that and has been drinking heavy since. She has a headache for a few weeks. She has no fever, chills, cough, chest pain, shortness of breath, abdominal pain, nausea or vomiting. He is not sure if she has been taking her medicine or if she is drinking alcohol lately. - Discharge Data Discharge Date: 12/27/17 (admit 12/24/17) Discharge Disposition: Home, Self-Care 01 Condition: Good - Discharge Diagnosis/Problem(s) (1) Hypokalemia SNOMED Code(s): 72128462 ICD Code: E87.6 - HYPOKALEMIA Status: Acute Priority: Medium Current Visit: Yes (2) Medical non-compliance SNOMED Code(s): 773517010 ICD Code: Z91.19 - PATIENT'S NONCOMPLIANCE W OTH MEDICAL TREATMENT AND REGIMEN Status: Chronic Priority: High Current Visit: Yes (3) Esophageal varices determined by endoscopy SNOMED Code(s): 69422264, 004474157 ICD Code: I85.00 - ESOPHAGEAL VARICES WITHOUT BLEEDING Status: Chronic Priority: Low Current Visit: No (4) CKD (chronic kidney disease), stage II SNOMED Code(s): 427898838 ICD Code: N18.2 - CHRONIC KIDNEY DISEASE, STAGE 2 (MILD) Status: Chronic Priority: Medium Current Visit: Yes (5) Chronic anemia SNOMED Code(s): 762449571 ICD Code: D64.9 - ANEMIA, UNSPECIFIED Status: Chronic Priority: Medium Current Visit: No (6) Hepatic encephalopathy SNOMED Code(s): 70566543 ICD Code: K72.90 - HEPATIC FAILURE, UNSPECIFIED WITHOUT COMA Status: Acute Priority: High Current Visit: Yes (7) Hypomagnesemia SNOMED Code(s): 527589638 ICD Code: E83.42 - HYPOMAGNESEMIA Status: Acute Priority: Medium Current Visit: Yes (8) Alcoholism SNOMED Code(s): 7848028 ICD Code: F10.20 - ALCOHOL DEPENDENCE, UNCOMPLICATED Status: Chronic Priority: Low Current Visit: No (9) Liver disease due to alcohol SNOMED Code(s): 56519741 ICD Code: K70.9 - ALCOHOLIC LIVER DISEASE, UNSPECIFIED Status: Chronic Priority: High Current Visit: Yes - Patient Summary/Data Operative Procedure(s) Performed: none Complications: none Consults: Consultations 12/24/17 13:38 Consult to Case Management [CONS] Routine Consult to Physician [CONS] Routine Consult to Radio Maintainer [CONS] Routine Consult to Spiritual Care [CONS] Routine PT Evaluation and Treatment [CONS] Routine 12/24/17 15:54 OT Evaluation and Treatment [CONS] Routine Labs Pending at D/C: none Recommended Follow-up Testing/Procedures: Follow up with Outpatient Addiction Counselor -Recommend AA Meetings Follow up with PCP, Joyce Parish within one week of discharge: - recommend recheck of labs for magnesium and potassium at that time. - lactulose refill - f/u for smoking cessation and nicotine patch rx refill (30 day supply given here) Follow up with GI Specialist as soon as possible for recheck of liver disease -per pt, has EGD this week Planned Operative Procedure(s) after DC: none Hospital Course: Assessment/Plan: Acute: Alcohol Use/Abuse/Dependence -States last drink was 2 weeks ago; has chronic ETOH history -EtOH 0 today -Inpatient treatment 2 years ago, was sober for 2-3 months -Has shown interest in outpatient rehab/treatment--> consult CM/SW -AA, Spiritual care consults, Psychiatry consults -CIWAA protocol Tobacco Use/Dependence -Smokes 1/2 ppd-3/4 ppd -Smoking cessation education -Nicotine patch--> rx home x30 days Hypomagnesemia, Improved to resolved -Mg 1.4---> 1.2 -->1.6 -Replete and monitor Thrombocytopenia, Improved to resolved -2/2 alcoholic liver dz -Plt: 135--> 120 --> 129 -->144 -Monitor Resolved: Hepatic Encephalopathy/AMS, At baseline -Risk factors: Previous Encephalopathy, ETOH Abuse, Medical non-compliance -Acute on Chronic -2/2 Advanced Liver disease and medical non compliance--> stopped taking Lactulose bc thought it was only a temporary prescription. -Ammonia level on admission: 65--> 98 --> 57 -Avoid NSAIDS -IVF, MVI, Folic Acid, Thiamine Supplementation -Resume at home meds: Lactulose and Xifaxan -F/u with GI specialist in [place] after discharge-->per pt already has appointment for EGD this week Chronic: Alcoholic liver disease Esophageal varicies s/p banding--> repeat EGD in 1 week with GI specialist Medical Noncompliance--> h/o not taking medications Other: She is clinically Stable Continue current treatment GI prophylaxis--> Protonix; also at-home Carafate AC/HS here DVT prophylaxis: Lovenox Consult PT/OT CM/SW for assist with DC planning-->OP alcohol treatment options SA/Psych Consult D/C today PCP is ESTRADA Recinos with [facility] She is Full Code status. Halina has recovered quite well after being admitted for hepatic encephalopathy. She stated her last drink was 2 weeks ago and her EtOH upon arrival was 0. She had stopped taking her lactulose because she had "finished the bottle" and thought she no longer needed to take it. We discussed that she will need to be taking Lactulose as well as her Xifaxan at home indefinitely in order to prevent this in the future. She now understands and wants to be compliant with this regimen. While here she also had some abnormal labs: Mg 1.4 and Plt 135. She should follow-up with her primary care provider in 7-10 days for repeat testing. She is also interested in quitting smoking and drinking. She did have a SA/psych consult, nicotine patches, practical counseling on tobacco cessation while here, and was provided with the [place] Quit line, Nicotine patches, and recommendation to AA upon discharge. She was discharged home with Lactulose [id number] and Nicotine patches [id number]. She should f/u with her PCP for any future refills and nicotine/EtOH cessation help. She will be discharged home today. - Patient Instructions Diet: Heart Healthy Diet, Renal Diet Driving: Do Not Drive Showering/Bathing: May Shower Notify Provider of: Fever, Increased Pain, Nausea and/or Vomiting - Discharge Plan Prescriptions/Med Rec: Lactulose [Cephulac] 30 gm PO DAILY 30 Days #1350 ml Nicotine [Habitrol] 21 mg TRDERM DAILY #30 patch Home Medications: Home Meds Folic Acid 1 mg PO DAILY 10/04/15 [History] Omeprazole 20 mg PO BIDAC 10/04/15 [History] Potassium Chloride 20 meq PO BID 10/04/15 [History] Venlafaxine HCl [Venlafaxine ER] 150 mg PO DAILY 10/04/15 [History] Aspirin 81 mg PO DAILY 12/07/17 [History] Betamethasone Dipropionate [Diprosone 0.05% Crm] 0 gm TOP BID PRN 12/07/17 [ History] Eszopiclone [Lunesta] 2 mg PO BEDTIME PRN 12/07/17 [History] Hydrochlorothiazide 25 mg PO DAILY 12/07/17 [History] Nadolol [Corgard] 40 mg PO DAILY 12/07/17 [History] Rifaximin [Xifaxan] 550 mg PO BID 12/07/17 [History] Triamcinolone Acetonide [Triamcinolone Acetonide 0.1% Crm] 15 gm .XX DAILY 12/07 [History] Azithromycin [Zithromax] 250 mg PO DAILY #4 ml 12/08/17 [Rx] Biotin/FA/Vit C/Vit B Complex [Nephrocaps] 1 tab PO DAILY #30 tablet 12/08/17 [ Rx] Nicotine [NTS] 1 each TD DAILY #30 patch.td24 12/08/17 [Rx] Sucralfate [Carafate] 1 gm PO QIDACANDBED #480 ml 12/08/17 [Rx] Thiamine [Vitamin B-1] 100 mg PO DAILY #30 tablet 12/08/17 [Rx] Magnesium Oxide 400 mg PO TID 12/24/17 [History] Lactulose [Cephulac] 30 gm PO DAILY 30 Days #1350 ml 12/27/17 [Rx] Nicotine [Habitrol] 21 mg TRDERM DAILY #30 patch 12/27/17 [Rx] Patient Handouts: Addiction and the Family, Hepatic Encephalopathy, Hypomagnesemia, Substance Use Disorder, Finding Treatment for Addiction, Steps to Quit Smoking Referrals: Jem,Alea M, WIRE BRUSHER [Primary Care Provider] - - Discharge Summary/Plan Comment DC Time >30 min.: Yes (40) - General Info Date of Service: 12/27/17 Admission Dx/Problem (Free Text: Admission Diagnosis/Problem Admission Diagnosis/Problem Encephalopathy Subjective Update: In to see Halina today. She is standing up and getting packed to be discharged home today. Overall she is doing quite well. She is excited to go home. She has no complaints. She has been sleeping well. Good appetite. Ambulating. Pain is controlled. Urinating. No concerns from nursing. We discussed that she will need to take her Lactulose and Xifaxan indefinitely and she understands. She also would like to quit smoking, so verbal education was given as well as the [place] quit hotline and Nicotine patches. She will be going to f/u with her GI specialist for an EGD this week. She will f/u with her PCP within 7-10 days. Will be DCd back to Home today with Lactulose and Nicotine patches. Functional Status: Reports: Pain Controlled, Tolerating Diet, Ambulating, Urinating - Review of Systems General: Reports: No Symptoms. Denies: Fever, Chills HEENT: Reports: No Symptoms Pulmonary: Reports: No Symptoms Cardiovascular: Reports: No Symptoms. Denies: Chest Pain Gastrointestinal: Reports: No Symptoms. Denies: Diarrhea, Nausea, Vomiting Genitourinary: Reports: No Symptoms. Denies: Dysuria, Frequency, Burning Musculoskeletal: Reports: No Symptoms Skin: Reports: No Symptoms Neurological: Reports: No Symptoms. Denies: Confusion, Dizziness Psychiatric: Reports: No Symptoms. Denies: Confusion - Patient Data Vitals - Most Recent: Last Vital Signs Temp 97.5 F 12/27/17 02:58 Pulse 83 12/27/17 09:05 Resp 18 12/27/17 02:58 BP 105/63 12/27/17 09:05 Pulse Ox 95 12/27/17 02:58 Weight - Most Recent: 112 lb I&O - Last 24 hours: Intake & Output 12/26/17 12/27/17 12/27/17 22:59 06:59 14:59 Intake Total 1110 700 420 Balance 1110 700 420 Lab Results - Last 24 hrs: Laboratory Results - last 24 hr 12/27/17 12/27/17 12/27/17 Range/Units 06:30 06:30 06:30 WBC 5.35 (3.98-10.04) K/mm3 RBC 3.21 L (3.98-5.22) M/mm3 Hgb 10.8 L (11.2-15.7) gm/L Hct 32.3 L (34.1-44.9) % MCV 100.6 H (79.4-94.8) fl MCH 33.6 H (25.6-32.2) pg MCHC 33.4 (32.2-35.5) g/dl RDW Std Deviation 45.0 (36.4-46.3) fL Plt Count 144 L (182-369) K/mm3 MPV 10.4 (9.4-12.3) fl Neut % (Auto) 54.4 (34.0-71.1) % Lymph % (Auto) 27.3 (19.3-51.7) % [place] % (Auto) 14.0 H (4.7-12.5) % Eos % (Auto) 3.7 (0.7-5.8) Baso % (Auto) 0.2 (0.1-1.2) % Neut # (Auto) 2.91 (1.56-6.13) K/mm3 Lymph # (Auto) 1.46 (1.18-3.74) K/mm3 [place] # (Auto) 0.75 H (0.24-0.36) K/mm3 Eos # (Auto) 0.20 (0.04-0.36) K/mm3 Baso # (Auto) 0.01 (0.01-0.08) K/mm3 Sodium 136 (136-145) mEq/L Potassium 3.6 (3.5-5.1) mEq/L Chloride 105 (98-107) mEq/L Carbon Dioxide 21 (21-32) mEq/L Anion Gap 13.6 (5-15) BUN 28 H (7-18) mg/dL Creatinine 0.6 (0.55-1.02) mg/dL Est Cr Clr Drug Dosing 78.97 mL/min Estimated GFR (MDRD) > 60 (>60) mL/min BUN/Creatinine Ratio 46.7 H (14-18) Glucose 130 H (80-115) mg/dL Calcium 9.0 (8.5-10.1) mg/dL Magnesium 1.6 L (1.8-2.4) mg/dl Ammonia 57 H (11-32) umol/L C-Reactive Protein 0.9 (<1.0) mg/dL Med Orders - Current: Current Medications Acetaminophen (Tylenol) 650 mg PO Q4H PRN PRN Reason: Pain (Mild 1-3)/fever Hydrocodone Bitart/Acetaminophen (Gardiner 325-5 Mg) 1 tab PO Q4H PRN PRN Reason: Pain (moderate 4-6) Last Admin: 12/25/17 08:02 Dose: 1 tab Albuterol/Ipratropium (Duoneb 3.0-0.5 Mg/3 Ml) 3 ml NEB Q4H PRN PRN Reason: Shortness Of Breath/wheezing Aspirin (Aspirin) 81 mg PO DAILY [facility] Last Admin: 12/27/17 09:05 Dose: 81 mg Bisacodyl (Dulcolax) 5 mg PO DAILY PRN PRN Reason: Constipation Docusate Sodium (Colace) 100 mg PO BID PRN PRN Reason: Constipation Enoxaparin Sodium (Lovenox) 40 mg SUBCUT DAILY [facility] Last Admin: 12/27/17 09:09 Dose: 40 mg Folic Acid (Folic Acid) 1 mg PO DAILY [facility] Last Admin: 12/27/17 09:08 Dose: 1 mg Hydrochlorothiazide (Hydrochlorothiazide) 25 mg PO DAILY [facility] Last Admin: 12/27/17 09:07 Dose: 25 mg Lactulose (Cephulac) 30 gm PO DAILY [facility] Last Admin: 12/27/17 09:10 Dose: 30 gm Lorazepam (Ativan) 0.25 mg IVPUSH Q4H PRN PRN Reason: Anxiety Magnesium Hydroxide (Milk Of Magnesia) 30 ml PO Q12H PRN PRN Reason: Constipation Magnesium Oxide (Magnesium Oxide) 400 mg PO TID [facility] Last Admin: 12/27/17 09:08 Dose: 400 mg Miscellaneous Information (Remove Patch) 0 ea TRDERM DAILY [facility] Last Admin: 12/27/17 09:09 Dose: 1 ea Multivitamins (Thera) 1 each PO DAILY [facility] Last Admin: 12/27/17 09:08 Dose: 1 each Nadolol (Naldol) 40 mg PO DAILY [facility] Last Admin: 12/27/17 09:05 Dose: 40 mg Nicotine (Habitrol) 21 mg TRDERM DAILY [facility] Last Admin: 12/27/17 09:08 Dose: 21 mg Ondansetron HCl (Zofran Odt) 4 mg PO Q6H PRN PRN Reason: nausea, able to take PO Ondansetron HCl (Zofran) 4 mg IV Q6H PRN PRN Reason: Nausea/Vomiting Polyethylene Glycol (Miralax) 17 gm PO DAILY PRN PRN Reason: Constipation Potassium Chloride (Klor-Con M20) 20 meq PO BID [facility] Last Admin: 12/27/17 09:07 Dose: 20 meq Promethazine HCl (Phenergan) 25 mg PO Q6H PRN PRN Reason: Nausea/Vomiting Rifaximin (Xifaxan) 550 mg PO BID [facility] Last Admin: 12/27/17 09:07 Dose: 550 mg Senna/Docusate Sodium (Senna Plus) 1 tab PO BID PRN PRN Reason: Constipation Sodium Chloride (Saline Flush) 10 ml FLUSH ASDIRECTED PRN PRN Reason: Keep Vein Open Sucralfate (Carafate) 1 gm PO QIDACANDBED [facility] Last Admin: 12/27/17 13:08 Dose: 1 gm Temazepam (Restoril) 7.5 mg PO BEDTIME PRN PRN Reason: Sleep Last Admin: 12/26/17 22:21 Dose: 7.5 mg Thiamine HCl (Vitamin B-1) 100 mg PO DAILY [facility] Last Admin: 12/27/17 09:05 Dose: 100 mg Triamcinolone Acetonide (Triamcinolone Acetonide 0.1% Crm) 0 gm TOP DAILY [facility] Last Admin: 12/27/17 09:09 Dose: 1 applic Venlafaxine HCl (Effexor Xr) 150 mg PO DAILY [facility] Last Admin: 12/27/17 09:07 Dose: 150 mg Vitamin B Complex/Vit C/Folic Acid (Nephrocaps) 1 tab PO DAILY [facility] Last Admin: 12/27/17 09:08 Dose: 1 tab Discontinued Medications Folic Acid (Folic Acid) 1 mg PO ONETIME ONE Stop: 12/24/17 09:20 Last Admin: 12/24/17 09:58 Dose: 1 mg Sodium Chloride (Normal Saline) 1,000 mls @ 125 mls/hr IV ASDIRECTED [facility] Last Infusion: 12/24/17 18:53 Dose: 50 mls/hr Thiamine HCl 100 mg/ Sodium (Chloride) 101 mls @ 202 mls/hr IV ONETIME ONE Stop: 12/24/17 09:20 Last Admin: 12/24/17 09:56 Dose: 202 mls/hr Multivitamins/Minerals 10 ml/ (Dextrose/Sodium Chloride) 1,010 mls @ 125 mls/ hr IV .Q8H5M [facility] Stop: 12/24/17 18:00 Last Admin: 12/24/17 19:26 Dose: Not Given Sodium Chloride (Normal Saline) 1,000 mls @ 50 mls/hr IV ASDIRECTED [facility] Magnesium Sulfate 2 gm/ Premix 50 mls @ 25 mls/hr IV Q1H [facility] Stop: 12/26/17 14:59 Last Admin: 12/26/17 17:16 Dose: 25 mls/hr Magnesium Sulfate (Magnesium Sulfate 2 Gm In Water 50 Ml) Confirm Administered Dose 50 mls @ as directed .ROUTE .STK-MED ONE Stop: 12/26/17 17:15 Last Admin: 12/26/17 17:20 Dose: Not Given Ketorolac Tromethamine (Toradol) 30 mg IVPUSH ONETIME ONE Stop: 12/24/17 10:39 Last Admin: 12/24/17 11:04 Dose: 30 mg Lactulose (Cephulac) 20 gm PO ONETIME ONE Stop: 12/24/17 12:30 Last Admin: 12/24/17 13:20 Dose: 20 gm Lactulose (Cephulac) 20 gm PO ONETIME ONE Stop: 12/26/17 16:14 Last Admin: 12/26/17 17:17 Dose: 20 gm Morphine Sulfate (Morphine) 2 mg IVPUSH Q2H PRN PRN Reason: Pain (severe 7-10) Stop: 12/25/17 13:34 Sodium Chloride (Saline Flush) 10 ml FLUSH ASDIRECTED PRN PRN Reason: Keep Vein Open Last Admin: 12/24/17 09:46 Dose: 10 ml - Exam Quality Assessment: Reports: DVT Prophylaxis General: Reports: Alert, Oriented HEENT: Reports: Pupils Equal, Pupils Reactive, EOMI, Mucous Membr. Moist/[place] Neck: Reports: Supple Lungs: Reports: Clear to Auscultation, Normal Respiratory Effort Cardiovascular: Reports: Regular Rate, Regular Rhythm GI/Abdominal Exam: Normal Bowel Sounds, Soft, Non-Tender, No Organomegaly, No Distention, No Abnormal Bruit, No Mass, Pelvis Stable (Female) Exam: Deferred Rectal (Female) Exam: Deferred Back Exam: Reports: Normal Inspection, Full Range of Motion Extremities: Normal Inspection, Normal Range of Motion, Non-Tender, No Pedal Edema, Normal Capillary Refill Skin: Reports: Warm, Dry, Intact Neurological: Reports: No New Focal Deficit Psy/Mental Status: Reports: Alert, Normal Affect, Normal Mood
--- NOTE | 2017-12-29 08:51 | CONS ---
CONSULTING PHYSICIAN: Davi Fernandez LAC DATE OF CONSULTATION: 12/27/2016 TIME: 3:51 p.m. on 12/28/2017. The patient is a 62-year-old female, who was admitted to [facility] Med[facility]Surge [facility] on 12/24/2017. An alcohol and drug consultation was requested by her medical treatment team and PENNY was signed to include her , Logan in the evaluation. SOURCE OF INFORMATION: Hospital records, collateral report, staff report, background research, and prescription drug monitoring report. HISTORY OF PRESENT ILLNESS: The patient is a 62-year-old female, presenting to [facility] ED with hallucinations and an altered mental state. The patient presented 3 weeks ago with similar symptoms. The patient's , Logan, reports that the patient has been confused and has experienced loss of bowel movement and urination in their bedroom. The patient reports that she believes it was because she was not taking her prescribed medication lactulose. PSYCHOSOCIAL/SUBSTANCE ABUSE HISTORY: The patient reports that she was born and raised in [place], [place] and graduated from [employer]. After high school, she moved to [place] to attend [employer] school as she wanted to learn the [employer] business. However, she did not graduate, rather she met a man and they moved to [place]. For the next 10 years, she engaged in a fast and privileged lifestyle. She reports that in her late 20s and late 30s, she was partying about twice a week and "maybe more," and the parties included cocaine, cannabis and alcohol, as well as another drug called "locker room," which is a stimulant. The patient reports that she could snort a half and 8 ball in a night and drink at least 2-3 mixed drinks if not more. She also reports that she could smoke about a 0.25 ounce of cannabis a week as well. After the patient broke up with her boyfriend, she met another man, who was a heavy drinker, and during her 40s, she reports not using cocaine; however, she was drinking every day at least a quarter bottle of vodka. She also continued to smoke weed. However, liquor became her drug of choice. The patient reports that in her 50s and 60s, she was to her current and their house is the alliance party house. They also work next door to "the [employer]" and they spend most every day drinking with their friends both in the afternoons and evenings. The patient reports that in her 50s, she was going through a 1.75 bottle of vodka or [employer] every 2 weeks. She and her also drink at the [employer] and she would have approximately 7 heavy mixes during the evening and go home and continue to drink till 3 to 4 in the morning by herself. The patient's is reporting that this has been a typical pattern for her to stay up and drink till 3 or 4 in the morning. The patient is reporting that in the last year she has been typically drinking at the very least a half bottle of vodka a day. The patient's report of her last drink is variable, as there are different self reports to different providers. The patient reports that addiction runs in her family, that she experiences blackouts and pass outs and severe withdrawals. The patient reports that she has participated in 2 substance abuse treatments. Her last one was in 2016 at [facility]. The patient is adamant about not going back to residential treatment. MEDICAL HISTORY: The patient presents to [facility] with serious degenerative health secondary to chronic and severe alcohol dependence. Her medical treatment team has diagnosed her with hypokalemia, esophageal varices without bleeding, chronic kidney disease stage 2, chronic anemia, hepatic encephalopathy, hypomagnesemia, and liver disease due to alcohol. The patient also smokes a half a pack of cigarettes a day. MENTAL HEALTH HISTORY: The patient was seen by Dr. Ramsey, and he diagnosed the patient with depression, NOS and past history of psychosis, NOS. DIAGNOSES: The patient meets DSM-5 criteria for the following diagnosis: 1. F10.20, alcohol use disorder, severe. 2. F10.232, alcohol withdrawal with perceptual disturbance. 3. F17.200, tobacco use disorder, severe. 4. F12.20, cannabis use disorder, severe. 5. F14.20, cocaine use disorder, severe in sustained full remission. ASAM DIMENSIONS: 1. Dimension 1: Score 3. The patient tolerates and therese with withdrawal discomfort poorly. She may have severe intoxication that she could endanger herself or others. She displays severe signs and symptoms of withdrawal, however, her withdrawal symptoms are manageable. 2. Dimension 2: Score 3. The patient tolerates and therese poorly with physical problems and has poor general health. The patient presents with a plethora of serious medical issues and degenerative major life organ systems. 3. Dimension 3: Score 2. The patient has difficulty with impulse control and lacks coping skills. She appears to have some difficulty functioning in significant life areas and has been diagnosed by Dr. Ramsey with depression, NOS and past psychosis, NOS. 4. Dimension 4: Score 3. The patient appears to have minimal awareness of her addiction and its negative implication. She displays inconsistent compliance and is minimally cooperative. 5. Dimension 5: Score 3. The patient has little recognition and understanding of relapse and recidivism issues and displays high vulnerability for further substance use. 6. Dimension 6: Score 3. The patient is not engaged in structured meaningful activity and her is also a substance user. ASSESSMENT SUMMARY: The patient appears to be a nice woman, who suffers from late stage IV alcoholism manifesting with serious degenerative medical issues complicating major life organ systems, minimal insight into the negative implications of continued drinking, high defense mechanisms and denial of her general poor health and appearance. The patient is unamenable to residential treatment and is verbalizing that she can achieve and maintain sobriety on her own. We had a discussion, which included her about the effects of continued drinking on her health and the progressive nature of alcoholism. All treatment options, both voluntary and involuntary were presented to the patient and she was amenable to outpatient treatment at [facility] with Davi Fernandez LAC. We scheduled an appointment for 01/03/2018. At that time, the patient will enter into an outpatient treatment program consisting of biweekly alcohol and drug testing with counseling. It was agreed upon that should the patient not be able to achieve and maintain sobriety, a petition for involuntary commitment may be exercised through [facility]. The patient was questioned for understanding of her continued care program, which she verbalized that she understood. The patient was given referral information for her appointment next week at [facility]. Dr. Bass and FILIBERTO Anton, were consulted regarding the outcome of the consultation and were in agreement with taking the least restrictive approach to ensure trust and long-term treatment and controlled sobriety. MMODAL /[id number]
== END 2017-12-27 15:30 | disposition home or self-care (01) | DRG 432 ==
LOC: JD.ED 08:56 → JD.ICU 12:36 → JD.MS 12-26 05:29
PROVIDERS: ADMIT Internal Medicine; ATTEND Internal Medicine
DX: K70.30 Alcoholic cirrhosis of liver without ascites (principal); K72.00 Acute and subacute hepatic failure without coma; I85.00 Esophageal varices without bleeding; Z91.14 Patient's other noncompliance with medication regimen; I12.9 Hypertensive chronic kidney disease with stage 1 through stage 4 chronic kidney disease, or unspecified chronic kidney disease; N18.2 Chronic kidney disease, stage 2 (mild); F10.21 Alcohol dependence, in remission; E87.6 Hypokalemia; K72.10 Chronic hepatic failure without coma; D69.59 Other secondary thrombocytopenia; F41.9 Anxiety disorder, unspecified; F17.200 Nicotine dependence, unspecified, uncomplicated; E83.42 Hypomagnesemia; F32.9 Major depressive disorder, single episode, unspecified; D64.9 Anemia, unspecified; M81.0 Age-related osteoporosis without current pathological fracture; R32 Unspecified urinary incontinence; Z88.6 Allergy status to analgesic agent; Z88.1 Allergy status to other antibiotic agents; Z79.82 Long term (current) use of aspirin; Z79.899 Other long term (current) drug therapy
CPT/HCPCS: 36415; 70450; 70450-26; 80048; 80053; 80306; 81001; 82140; 82962; 83735; 84484; 85025; 85610; 85730; 86140; 93005; 96365; 96366; 96367; 96375; 97116-GP; 97162-GP; 97165-GO; 99285; 99285-25; A9270-GY; G0480; J1650; J1885; J3411; J3475; J7030; J7040; J7042; J7050

== ENCOUNTER 2018-11-19 21:00 | Inpatient (IN) | payer MEDICAID ==
[2018-11-19] MEDS ORDERED: Sodium Chloride 0.9% 1,000 ML IV SCH (21:45)
--- NOTE | 2018-11-19 21:45 | EDM.PDOC ---
ED HPI GENERAL MEDICAL PROBLEM - General Chief Complaint: Gastrointestinal Problem Stated Complaint: EN AMBULANCE Time Seen by Provider: 11/19/18 21:26 Source of Information: Reports: Patient, EMS History Limitations: Reports: No Limitations - History of Present Illness INITIAL COMMENTS - FREE TEXT/NARRATIVE: This is a 63-year-old female. Apparently since 4 PM she has had for stools with bright red blood. She was brought to the ER because of this. For the last month she has been in [facility] and she has been drinking alcohol. Since she got home she has not been drinking alcohol and she apparently stopped her lactulose first Arnold days and started again yesterday but now she is having the loose stools and since 4 PM the blood in her stools. Her history is quite involved including alcohol abuse with alcoholic liver disease and chronic anemia with esophageal varices status post banding and hepatic encephalopathy with stage II kidney disease. She has a history of noncompliance with her medications. She apparently assures me that she's been taking her pills but is just the lactulose she hasn't been taking but then she tells me well as were her take my medication intermittently. She denies any fever or chills she denies any cough or congestion. She states she does feel weak after having those bloody stools. Additional history the patient has been falling since this morning and feeling very weak and just not feeling very well. She denies any dizziness. The EMS noted her blood pressure. Systolic was somewhat low when they got there. She apparently fell and hit the back of her head this morning as well. The patient tells me she has not been eating or drinking much over the last couple of days. 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: See EMS Report - Related Data Allergies Allergy/AdvReac Type Severity Reaction Status Date / Time nitrofurantoin Allergy Rash Verified 11/19/18 21:11 [From Macrobid] nitrofurantoin Allergy Rash Verified 11/19/18 21:11 macrocrystalline [From Macrobid] codeine AdvReac Upset Verified 11/19/18 21:11 Stomach Home Meds: Home Meds Folic Acid 1 mg PO DAILY 10/04/15 [History] Omeprazole 20 mg PO BIDAC 10/04/15 [History] Potassium Chloride 20 meq PO BID 10/04/15 [History] Venlafaxine HCl [Venlafaxine ER] 150 mg PO DAILY 10/04/15 [History] Eszopiclone [Lunesta] 2 mg PO BEDTIME PRN 12/07/17 [History] hydroCHLOROthiazide [Hydrochlorothiazide] 25 mg PO DAILY 12/07/17 [History] Sucralfate [Carafate] 1 gm PO QIDACANDBED #480 ml 12/08/17 [Rx] Magnesium Oxide 400 mg PO TID 12/24/17 [History] Lactulose [Cephulac] 30 gm PO DAILY 30 Days #1350 ml 12/27/17 [Rx] B Complex W-C No.20/Folic Acid [Triphrocaps Softgel] 1 tab PO DAILY 11/20/18 [ History] Spironolactone [Aldactone] 25 mg PO DAILY 11/20/18 [History] Past Medical History HEENT History: Reports: Cataract Cardiovascular History: Reports: Hypertension Gastrointestinal History: Reports: Cirrhosis, Pancreatitis, Other (See Below) Other Gastrointestinal History: Possible cirrhosis Genitourinary History: Reports: Urinary Incontinence 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: Other (See Below) 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 ADULT MINISTRIES DIRECTOR History: Psychiatric History: Reports: Addiction, Anxiety Other Psychiatric History: alcohol, Endocrine/Metabolic History: Reports: Osteoporosis Hematologic History: Reports: Anemia, Iron Deficiency Dermatologic History: Reports: Other (See Below) Other Dermatologic History: biopsy to L ankle - Infectious Disease History Infectious Disease History: Reports: C-Difficile - Past Surgical History HEENT Surgical History: Reports: Cataract Surgery GI Surgical History: Reports: Colonoscopy, EGD, Other (See Below) Social & Family History - Family History Family Medical History: Noncontributory - Tobacco Use Smoking Status *Q: Current Every Day Smoker Years of Tobacco use: 35 Packs/Tins Daily: 0.2 Used Tobacco, but Quit: No - Caffeine Use Caffeine Use: Reports: Coffee, Soda Other Caffeine Use: 1/day - Alcohol Use Days Per Week of Alcohol Use: 6 Number of Drinks Per Day: 4 Total Drinks Per Week: 24 - Recreational Drug Use Recreational Drug Use: No - Living Situation & Occupation Living situation: Reports: , with Spouse 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 Denies: Fever, Chills HEENT: Reports: No Symptoms Respiratory: Denies: Shortness of Breath, Cough Cardiovascular: Denies: Chest Pain Endocrine: Reports: Fatigue GI/Abdominal: Reports: Diarrhea. Denies: Abdominal Pain, Nausea, Vomiting : Reports: No Symptoms Musculoskeletal: Reports: Other (Generalized aches and pains) Skin: Reports: Other (Slightly jaundiced appearing) Neurological: Reports: Headache. Denies: Confusion, Dizziness Psychiatric: Reports: No Symptoms Hematologic/Lymphatic: Reports: Anemia ED EXAM, GI/ABD - Physical Exam Exam: See Below Exam Limited By: No Limitations General Appearance: Alert, No Apparent Distress, Thin Eyes: Bilateral: Normal Appearance (Slight jaundice) Ears: Normal External Exam, Normal Canal, Normal TMs Nose: Normal Inspection Throat/Mouth: Normal Inspection, Normal Lips, Normal Voice, No Airway Compromise , Other (Mucous membranes are tacky) Head: Other (There is a small bump on the back of her head in the posterior parietal area, the patient denies any headache) Neck: Normal Inspection, Supple, Other (She denies any cervical tenderness on palpation and she moves her head freely) Respiratory/Chest: No Respiratory Distress, Lungs Clear, Normal Breath Sounds Cardiovascular: Regular Rate, Rhythm, No Murmur GI/Abdominal Exam: Soft, Non-Tender Rectal (Female) Exam: Other (She had a bright red bowel movement with blood when she came into the ER and has had none since) Back Exam: Other (She initially complained of some lower back tenderness but now she says she is not hurting at all. She is able to roll in the bed with no problems) Extremities: Normal Range of Motion, Other (She does look like she has some bruises on her shins bilaterally) Neurological: Alert, Oriented, Other (She appears to have some normal cognition and answers questions appropriately.) Psychiatric: Normal Affect, Normal Mood Skin Exam: Warm, Dry EKG INTERPRETATION EKG Date: 11/19/18 Time: 21:08 EKG Interpretation Comments: EKG shows a normal sinus rhythm rate of 89, there is a suggestion of an old anterior MN in the past, no acute ST or T-wave changes noted and no scaly and noted. Course - Vital Signs Last Recorded V/S: Last Vital Signs Temp 98.1 F 11/19/18 21:06 Pulse 89 11/19/18 21:06 Resp 12 11/19/18 21:06 BP 77/44 L 11/19/18 21:06 Pulse Ox 98 11/19/18 21:06 - Orders/Labs/Meds Orders: Active Orders 24 hr Category Date Time Status EKG 12 Lead [EKG Documentation Completion] [RC] STAT Care 11/19/18 23:55 Active CXR [Chest 1V Frontal] [CR] Stat Exams 11/19/18 23:03 Taken Magnesium Sulfate/Water [Magnesium Sulfate 2 GM in Med 11/20/18 00:27 Active Water 50 ML] 2 gm Premix Bag 1 bag IV ONETIME Sodium Chloride 0.9% [Normal Saline] 1,000 ml Med 11/19/18 21:45 Active IV ASDIRECTED Transfuse RBC [Transfuse Red Blood Cells] [COMM] Stat Oth 11/20/18 00:26 Ordered Medication Orders Sodium Chloride (Normal Saline) 1,000 mls @ 1,000 mls/hr IV ASDIRECTED BIANCA Last Admin: 11/19/18 21:50 Dose: 1,000 mls/hr Magnesium Sulfate 2 gm/ Premix 50 mls @ 25 mls/hr IV ONETIME ONE Stop: 11/20/18 03:26 Last Admin: 11/20/18 00:56 Dose: 25 mls/hr Labs: Laboratory Tests 11/19/18 11/19/18 11/19/18 Range/Units 22:01 22:01 22:01 WBC 7.88 (3.98-10.04) K/mm3 RBC 2.54 L (3.98-5.22) M/mm3 Hgb 8.0 L (11.2-15.7) gm/L Hct 24.6 L (34.1-44.9) % MCV 96.9 H (79.4-94.8) fl MCH 31.5 (25.6-32.2) pg MCHC 32.5 (32.2-35.5) g/dl RDW Std Deviation 51.2 H (36.4-46.3) fL Plt Count 147 L (182-369) K/mm3 MPV 10.5 (9.4-12.3) fl Neut % (Auto) 71.8 H (34.0-71.1) % Lymph % (Auto) 18.9 L (19.3-51.7) % [place] % (Auto) 8.4 (4.7-12.5) % Eos % (Auto) 0.5 L (0.7-5.8) Baso % (Auto) 0.3 (0.1-1.2) % Neut # (Auto) 5.66 (1.56-6.13) K/mm3 Lymph # (Auto) 1.49 (1.18-3.74) K/mm3 [place] # (Auto) 0.66 H (0.24-0.36) K/mm3 Eos # (Auto) 0.04 (0.04-0.36) K/mm3 Baso # (Auto) 0.02 (0.01-0.08) K/mm3 PT (9.5-12.1) SECONDS INR Sodium 139 (136-145) mEq/L Potassium 3.9 (3.5-5.1) mEq/L Chloride 108 H (98-107) mEq/L Carbon Dioxide 19 L (21-32) mEq/L Anion Gap 15.9 H (5-15) BUN 20 H (7-18) mg/dL Creatinine 1.0 (0.55-1.02) mg/dL Est Cr Clr Drug Dosing 48.45 mL/min Estimated GFR (MDRD) 56 (>60) mL/min BUN/Creatinine Ratio 20.0 H (14-18) Glucose 115 (80-115) mg/dL Lactic Acid 2.4 H (0.4-2.0) mmol/L Calcium 8.3 L (8.5-10.1) mg/dL Magnesium 1.2 L (1.8-2.4) mg/dl Total Bilirubin 2.2 H (0.2-1.0) mg/dL AST 37 (15-37) U/L ALT 28 (14-59) U/L Alkaline Phosphatase 68 (46-116) U/L Ammonia (11-32) umol/L Troponin I 0.018 (0.00-0.056) ng/mL Total Protein 5.6 L (6.4-8.2) g/dl Albumin 2.3 L (3.4-5.0) g/dl Globulin 3.3 gm/dL Albumin/Globulin Ratio 0.7 L (1-2) Lipase 173 (73-393) U/L Ethyl Alcohol (0.00) gm% 11/19/18 11/19/18 11/19/18 Range/Units 22:01 22:01 22:01 WBC (3.98-10.04) K/mm3 RBC (3.98-5.22) M/mm3 Hgb (11.2-15.7) gm/L Hct (34.1-44.9) % MCV (79.4-94.8) fl MCH (25.6-32.2) pg MCHC (32.2-35.5) g/dl RDW Std Deviation (36.4-46.3) fL Plt Count (182-369) K/mm3 MPV (9.4-12.3) fl Neut % (Auto) (34.0-71.1) % Lymph % (Auto) (19.3-51.7) % [place] % (Auto) (4.7-12.5) % Eos % (Auto) (0.7-5.8) Baso % (Auto) (0.1-1.2) % Neut # (Auto) (1.56-6.13) K/mm3 Lymph # (Auto) (1.18-3.74) K/mm3 [place] # (Auto) (0.24-0.36) K/mm3 Eos # (Auto) (0.04-0.36) K/mm3 Baso # (Auto) (0.01-0.08) K/mm3 PT 14.0 H (9.5-12.1) SECONDS INR 1.29 Sodium (136-145) mEq/L Potassium (3.5-5.1) mEq/L Chloride (98-107) mEq/L Carbon Dioxide (21-32) mEq/L Anion Gap (5-15) BUN (7-18) mg/dL Creatinine (0.55-1.02) mg/dL Est Cr Clr Drug Dosing mL/min Estimated GFR (MDRD) (>60) mL/min BUN/Creatinine Ratio (14-18) Glucose (80-115) mg/dL Lactic Acid (0.4-2.0) mmol/L Calcium (8.5-10.1) mg/dL Magnesium (1.8-2.4) mg/dl Total Bilirubin (0.2-1.0) mg/dL AST (15-37) U/L ALT (14-59) U/L Alkaline Phosphatase (46-116) U/L Ammonia 120 H (11-32) umol/L Troponin I (0.00-0.056) ng/mL Total Protein (6.4-8.2) g/dl Albumin (3.4-5.0) g/dl Globulin gm/dL Albumin/Globulin Ratio (1-2) Lipase (73-393) U/L Ethyl Alcohol 0.00 (0.00) gm% Meds: Medications Generic Name Dose Route Start Last Admin Trade Name Gato PRN Reason Stop Dose Admin Sodium Chloride 1,000 mls @ 1,000 mls/hr 11/19/18 21:45 11/19/18 21:50 Normal Saline IV 1,000 mls/hr ASDIRECTED BIANCA Administration Magnesium Sulfate 2 gm/ Premix 50 mls @ 25 mls/hr 11/20/18 00:27 11/20/18 00: 56 IV 11/20/18 03:26 25 mls/hr ONETIME ONE Administration - Radiology Interpretation Free Text/Narrative:: Chest x-ray does not show any acute changes. - Re-Assessments/Exams Free Text/Narrative Re-Assessment/Exam: 11/20/18 00:21 Spoke to the patient and her regarding the lab results and the low hemoglobin and magnesium and the elevated ammonia level and bilirubin. I also spoke to Dr. Bass as well as Dr. Reyez regarding this patient. We will be admitting her for further evaluation and treatment. 11/20/18 00:[address] Reyez he agreed to scope the patient. In the meantime we'll admit her to [facility] telemetry and get the blood transfused and the magnesium started. We will just watch her this evening to see how she does. 11/20/18 01:09 The patient has been stable since she's been here with no more bloody bowel movements. With the fluids her blood pressure has come up and her heart rate has come down. Departure - Departure Time of Disposition: 00:22 Disposition: Admitted As Inpatient 67 Condition: Poor Clinical Impression: Lower GI bleed, Severe anemia, Dehydration, Hypomagnesemia, Hyperammonemia, Alcoholic liver disease, Alcoholism, Chronic anemia Hypotension Qualifiers: Hypotension type: hypotension due to hypovolemia Qualified Code(s): I95.89 - Other hypotension - Discharge Information ED Communication - ED Communication Date/Time Date: 11/20/18 Time Called: 00:24 - Discussed Case With (1) Person/s Notified (1): Wilda Bass (She will admit for further evaluation and treatment) Person/s Notified (2): Rachid Reyez (He will consult) Date: 11/20/18 Time Called: 00:25 - My Orders Last 24 Hours: My Active Orders 11/19/18 21:45 Sodium Chloride 0.9% [Normal Saline] 1,000 ml IV ASDIRECTED 11/19/18 23:03 CXR [Chest 1V Frontal] [CR] Stat 11/19/18 23:55 EKG 12 Lead [EKG Documentation Completion] [RC] STAT 11/20/18 00:26 Transfuse RBC [Transfuse Red Blood Cells] [COMM] Stat 11/20/18 00:27 Magnesium Sulfate/Water [Magnesium Sulfate 2 GM in Water 50 ML] 2 gm Premix Bag 1 bag IV ONETIME - Assessment/Plan Last 24 Hours: My Active Orders 11/19/18 21:45 Sodium Chloride 0.9% [Normal Saline] 1,000 ml IV ASDIRECTED 11/19/18 23:03 CXR [Chest 1V Frontal] [CR] Stat 11/19/18 23:55 EKG 12 Lead [EKG Documentation Completion] [RC] STAT 11/20/18 00:26 Transfuse RBC [Transfuse Red Blood Cells] [COMM] Stat 11/20/18 00:27 Magnesium Sulfate/Water [Magnesium Sulfate 2 GM in Water 50 ML] 2 gm Premix Bag 1 bag IV ONETIME
[2018-11-20] MEDS ORDERED: Magnesium Sulfate/Water 2 GM in Premix Bag 1 BAG IV ONE ×2 (00:27→03:34)
[2018-11-20] MEDS ORDERED: Acetaminophen 325 MG Tab PO PRN (01:52)
[2018-11-20] MEDS ORDERED: LORazepam 2 MG/ML SDV IVPUSH PRN (03:40)
[2018-11-20] MEDS ORDERED: LORazepam 2 MG/ML SDV IV SCH (03:45)
[2018-11-20] MEDS ORDERED: Sodium Chloride 0.9% 1,000 ML IV SCH (04:00)
[2018-11-20] MEDS ORDERED: Pantoprazole 40 MG Vial IVPUSH SCH (05:00)
[2018-11-20] MEDS ORDERED: Sodium Chloride 0.9% 500 ML IV ONE ×2 (05:56→06:30)
[2018-11-20] MEDS ORDERED: Norepinephrine 4 MG in Dextrose 5% in Water 246 ML IV SCH ×2 (06:15)
[2018-11-20] MEDS ORDERED: Furosemide 40 MG/4 ML VIAL ONE (06:54)
[2018-11-20] MEDS: Furosemide 40 MG/4 ML VIAL IVPUSH ONE ×2 (06:55→09:03)
[2018-11-20] MEDS ORDERED: Pantoprazole 80 MG in Sodium Chloride 0.9% 100 ML IV SCH (07:15)
[2018-11-20] MEDS ORDERED: Octreotide 500 MCG in Sodium Chloride 0.9% 499 ML IV SCH (07:15)
--- NOTE | 2018-11-20 07:39 | PCM.HP ---
H&P History of Present Illness - General Date of Service: 11/20/18 Admit Problem/Dx: Admission Diagnosis/Problem Admission Diagnosis/Problem GI bleed not requiring more than 4 units of blood in 24 hours, ICU, or surgery Source of Information: Provider - History of Present Illness Initial Comments - Free Text/Narative: 63 year old female with PMH of alcoholic cirrhosis, presents with a complaint of dizziness. She apparently reported blood per rectum when passing stool approximately 1600 hour on 11/19/18. She admitted to the ED provider that she had been drinking copious amounts of alcohol for a month in [place]. During this time she had not been taking any of her home medication. The patient was unclear when she had her last drink. Blood alcohol level was 0.0; however her ammonia level was 120. Additional lab results were abnormal including but not limiting Mg, Hgb; the patient was to receive 2 units of PRBCs, and MgSO4 replaced as ordered in the ED. The patient did not have N/V, blood per rectum or bloody stools in the ED. Blood pressure and heart rate had responded to 1 liter of sodium chloride. The patient was a full code and admitted to [place] with telemetry. Patient was received after 0130 hour, and stable at the time of initial assessment by [facility] nurse. After the patient had a BM with blood and stool, she became hypotensive. She was placed in Trendelenburg, a 1 liter fluid was given and an appropriate BP response occurred. She was transferred to ICU, another liter of NaCl 0.9 was given. The charge nurse requested the PRBCs; the patient received at least 1.5 units of the pack red blood cells before the flight crew arrived. She was alert and oriented prior to the transfer. No sedatives was given prior to transfer. Lactulose had been avoided to prevent additional GI blood loss. The general surgeon who had been consulted saw the patient, and called [facility] for transfer to a higher level of care. The patient had a total of three IV sites. Levophed had been ordered and started prior to transfer to maintain a MAP 65. The suggestion and explanation for transfer was provided by several providers in including the hospitalist staff, ICU nurse as well as the surgeon of record. The patient as well as her spouse agreed to the transfer. Onset of Symptoms: Reports: Unknown/Unsure Symptom Onset Date: 11/19/18 Location: Reports: Generalized Improves with: Reports: Medication Worsens with: Reports: None Context: Reports: Sick Contact (unknown), Other (recent travel to [place] and return to [place]) Associated Symptoms: Reports: Weakness Lower Back Pain Score (Numeric/FACES): 5 - Related Data Allergies/Adverse Reactions: Allergies Allergy/AdvReac Type Severity Reaction Status Date / Time nitrofurantoin Allergy Rash Verified 11/20/18 08:31 [From Macrobid] nitrofurantoin Allergy Rash Verified 11/20/18 08:31 macrocrystalline [From Macrobid] codeine AdvReac Upset Verified 11/20/18 08:31 Stomach Home Medications: Home Meds Folic Acid 1 mg PO DAILY 10/04/15 [History] Venlafaxine HCl [Venlafaxine ER] 150 mg PO DAILY 10/04/15 [History] Magnesium Oxide 400 mg PO TID 12/24/17 [History] B Complex W-C No.20/Folic Acid [Triphrocaps Softgel] 1 tab PO DAILY 11/20/18 [ History] LORazepam [Ativan] 1 - 3 mg IV ASDIRECTED vial 11/20/18 [Rx] LORazepam [Ativan] 2 mg IVPUSH Q8H PRN vial 11/20/18 [Rx] Lactulose 30 ml PO TID #14 bottle 11/20/18 [Rx] Norepinephrine [Levophed] 4 mg IV TITRATE sdv 11/20/18 [Rx] Octreotide [SandoSTATIN] 500 mcg IV Q10H sdv 11/20/18 [Rx] Pantoprazole [ProTONIX IV] 80 mg IV CONTINUOUS vial 11/20/18 [Rx] Spironolactone [Aldactone] 25 mg PO DAILY 11/20/18 [History] Sucralfate 1 gm PO QID 11/20/18 [History] Past Medical History HEENT History: Reports: Cataract Cardiovascular History: Reports: Hypertension Gastrointestinal History: Reports: Cirrhosis, Pancreatitis, Other (See Below) Other Gastrointestinal History: Possible cirrhosis Genitourinary History: Reports: Urinary Incontinence DIRECTOR TREASURER History: Reports: Other (See Below) Other OB/BYN History: Psychiatric History: Reports: Addiction, Anxiety Other Psychiatric History: alcohol, Endocrine/Metabolic History: Reports: Osteoporosis Hematologic History: Reports: Anemia, Iron Deficiency Dermatologic History: Reports: Other (See Below) Other Dermatologic History: biopsy to L ankle - Infectious Disease History Infectious Disease History: Reports: C-Difficile, Chicken Pox, Influenza, Measles, Mumps - Past Surgical History HEENT Surgical History: Reports: Cataract Surgery Other HEENT Surgeries/Procedures: wears glasses for distance/driving Cardiovascular Surgical History: Reports: None GI Surgical History: Reports: Colonoscopy, EGD, Other (See Below) Other GI Surgeries/Procedures: 12/26/18 going to have another EGD Dermatological Surgical History: Reports: None Social & Family History - Family History Family Medical History: Noncontributory - Tobacco Use Smoking Status *Q: Current Every Day Smoker Years of Tobacco use: 40 Packs/Tins Daily: 1 Used Tobacco, but Quit: No Second Hand Smoke Exposure: No - Caffeine Use Caffeine Use: Reports: Coffee Other Caffeine Use: 1/2 cup per day - Alcohol Use Days Per Week of Alcohol Use: 6 Number of Drinks Per Day: 1 Total Drinks Per Week: 6 Date of Last Drink: 04/21/19 - Recreational Drug Use Recreational Drug Use: No - Living Situation & Occupation Living situation: Reports: , with Spouse 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 ) H&P Review of Systems - Review of Systems: Review Of Systems: See Below General: Reports: Weakness, Fatigue HEENT: Reports: No Symptoms Pulmonary: Reports: No Symptoms Cardiovascular: Reports: Lightheadedness Gastrointestinal: Reports: Bloody Stool Genitourinary: Reports: No Symptoms Musculoskeletal: Reports: No Symptoms Skin: Reports: Other (icterus) Psychiatric: Reports: No Symptoms Neurological: Reports: Dizziness Hematologic/Lymphatic: Reports: Anemia Immunologic: Reports: No Symptoms Exam - Exam Exam: See Below - Vital Signs Vital Signs: Last Vital Signs Temp 36.2 C 11/20/18 07:19 Pulse 96 11/20/18 07:19 Resp 19 11/20/18 07:19 BP 99/52 L 11/20/18 07:19 Pulse Ox 91 L 11/20/18 01:16 Weight: 52.118 kg - Exam Quality Assessment: Supplemental Oxygen General: Alert, Oriented HEENT: EOMI, Hearing Intact, Nares Patent, Normal Nasal Septum, Pupils Equal, Pupils Reactive, Scleral Icterus, PERRLA Neck: Trachea Midline Lungs: Normal Respiratory Effort Cardiovascular: Regular Rate, Regular Rhythm GI/Abdominal Exam: Normal Bowel Sounds, Soft, Non-Tender, No Distention, Distended (no), Guarding (no), Rigid (no), Rebound (no), Hepatomegaly (Female) Exam: Deferred Rectal (Female) Exam: Deferred Extremities: Normal Inspection, Slow Capillary Refill Skin: Warm, Other (itcerus) Neurological: Cranial Nerves Intact, Normal Speech Neuro Extensive - Mental Status: Alert, Oriented x3, Normal Mood/Affect, Normal Cognition Neuro Extensive - Motor, Sensory, Reflexes: CN II-XII Intact Psychiatric: Alert, Normal Affect, Normal Mood - Patient Data Lab Results Last 24 hrs: Laboratory Results - last 24 hr 11/19/18 11/19/18 11/19/18 Range/Units 22:01 22:01 22:01 WBC 7.88 (3.98-10.04) K/mm3 RBC 2.54 L (3.98-5.22) M/mm3 Hgb 8.0 L (11.2-15.7) gm/L Hct 24.6 L (34.1-44.9) % MCV 96.9 H (79.4-94.8) fl MCH 31.5 (25.6-32.2) pg MCHC 32.5 (32.2-35.5) g/dl RDW Std Deviation 51.2 H (36.4-46.3) fL Plt Count 147 L (182-369) K/mm3 MPV 10.5 (9.4-12.3) fl Neut % (Auto) 71.8 H (34.0-71.1) % Lymph % (Auto) 18.9 L (19.3-51.7) % [place] % (Auto) 8.4 (4.7-12.5) % Eos % (Auto) 0.5 L (0.7-5.8) Baso % (Auto) 0.3 (0.1-1.2) % Neut # (Auto) 5.66 (1.56-6.13) K/mm3 Lymph # (Auto) 1.49 (1.18-3.74) K/mm3 [place] # (Auto) 0.66 H (0.24-0.36) K/mm3 Eos # (Auto) 0.04 (0.04-0.36) K/mm3 Baso # (Auto) 0.02 (0.01-0.08) K/mm3 Manual Slide Review PT (9.5-12.1) SECONDS INR Sodium 139 (136-145) mEq/L Potassium 3.9 (3.5-5.1) mEq/L Chloride 108 H (98-107) mEq/L Carbon Dioxide 19 L (21-32) mEq/L Anion Gap 15.9 H (5-15) BUN 20 H (7-18) mg/dL Creatinine 1.0 (0.55-1.02) mg/dL Est Cr Clr Drug Dosing 48.45 mL/min Estimated GFR (MDRD) 56 (>60) mL/min BUN/Creatinine Ratio 20.0 H (14-18) Glucose 115 (80-115) mg/dL Lactic Acid 2.4 H (0.4-2.0) mmol/L Calcium 8.3 L (8.5-10.1) mg/dL Magnesium 1.2 L (1.8-2.4) mg/dl Total Bilirubin 2.2 H (0.2-1.0) mg/dL AST 37 (15-37) U/L ALT 28 (14-59) U/L Alkaline Phosphatase 68 (46-116) U/L Ammonia (11-32) umol/L Troponin I 0.018 (0.00-0.056) ng/mL Total Protein 5.6 L (6.4-8.2) g/dl Albumin 2.3 L (3.4-5.0) g/dl Globulin 3.3 gm/dL Albumin/Globulin Ratio 0.7 L (1-2) Lipase 173 (73-393) U/L Ethyl Alcohol (0.00) gm% Blood Type Gel Antibody Screen Crossmatch 11/19/18 11/19/18 11/19/18 Range/Units 22:01 22:01 22:01 WBC (3.98-10.04) K/mm3 RBC (3.98-5.22) M/mm3 Hgb (11.2-15.7) gm/L Hct (34.1-44.9) % MCV (79.4-94.8) fl MCH (25.6-32.2) pg MCHC (32.2-35.5) g/dl RDW Std Deviation (36.4-46.3) fL Plt Count (182-369) K/mm3 MPV (9.4-12.3) fl Neut % (Auto) (34.0-71.1) % Lymph % (Auto) (19.3-51.7) % [place] % (Auto) (4.7-12.5) % Eos % (Auto) (0.7-5.8) Baso % (Auto) (0.1-1.2) % Neut # (Auto) (1.56-6.13) K/mm3 Lymph # (Auto) (1.18-3.74) K/mm3 [place] # (Auto) (0.24-0.36) K/mm3 Eos # (Auto) (0.04-0.36) K/mm3 Baso # (Auto) (0.01-0.08) K/mm3 Manual Slide Review PT 14.0 H (9.5-12.1) SECONDS INR 1.29 Sodium (136-145) mEq/L Potassium (3.5-5.1) mEq/L Chloride (98-107) mEq/L Carbon Dioxide (21-32) mEq/L Anion Gap (5-15) BUN (7-18) mg/dL Creatinine (0.55-1.02) mg/dL Est Cr Clr Drug Dosing mL/min Estimated GFR (MDRD) (>60) mL/min BUN/Creatinine Ratio (14-18) Glucose (80-115) mg/dL Lactic Acid (0.4-2.0) mmol/L Calcium (8.5-10.1) mg/dL Magnesium (1.8-2.4) mg/dl Total Bilirubin (0.2-1.0) mg/dL AST (15-37) U/L ALT (14-59) U/L Alkaline Phosphatase (46-116) U/L Ammonia 120 H (11-32) umol/L Troponin I (0.00-0.056) ng/mL Total Protein (6.4-8.2) g/dl Albumin (3.4-5.0) g/dl Globulin gm/dL Albumin/Globulin Ratio (1-2) Lipase (73-393) U/L Ethyl Alcohol 0.00 (0.00) gm% Blood Type Gel Antibody Screen Crossmatch 11/19/18 11/20/18 11/20/18 Range/Units 22:01 05:38 05:38 WBC (3.98-10.04) K/mm3 RBC (3.98-5.22) M/mm3 Hgb (11.2-15.7) gm/L Hct (34.1-44.9) % MCV (79.4-94.8) fl MCH (25.6-32.2) pg MCHC (32.2-35.5) g/dl RDW Std Deviation (36.4-46.3) fL Plt Count (182-369) K/mm3 MPV (9.4-12.3) fl Neut % (Auto) (34.0-71.1) % Lymph % (Auto) (19.3-51.7) % [place] % (Auto) (4.7-12.5) % Eos % (Auto) (0.7-5.8) Baso % (Auto) (0.1-1.2) % Neut # (Auto) (1.56-6.13) K/mm3 Lymph # (Auto) (1.18-3.74) K/mm3 [place] # (Auto) (0.24-0.36) K/mm3 Eos # (Auto) (0.04-0.36) K/mm3 Baso # (Auto) (0.01-0.08) K/mm3 Manual Slide Review PT (9.5-12.1) SECONDS INR Sodium 142 (136-145) mEq/L Potassium 4.3 (3.5-5.1) mEq/L Chloride 116 H (98-107) mEq/L Carbon Dioxide 14 L (21-32) mEq/L Anion Gap 16.3 H (5-15) BUN 25 H (7-18) mg/dL Creatinine 1.1 H (0.55-1.02) mg/dL Est Cr Clr Drug Dosing 43.63 mL/min Estimated GFR (MDRD) 50 (>60) mL/min BUN/Creatinine Ratio 22.7 H (14-18) Glucose 109 (80-115) mg/dL Lactic Acid (0.4-2.0) mmol/L Calcium 7.3 L (8.5-10.1) mg/dL Magnesium 2.5 H (1.8-2.4) mg/dl Total Bilirubin (0.2-1.0) mg/dL AST (15-37) U/L ALT (14-59) U/L Alkaline Phosphatase (46-116) U/L Ammonia 89 H (11-32) umol/L Troponin I (0.00-0.056) ng/mL Total Protein (6.4-8.2) g/dl Albumin (3.4-5.0) g/dl Globulin gm/dL Albumin/Globulin Ratio (1-2) Lipase (73-393) U/L Ethyl Alcohol (0.00) gm% Blood Type A POSITIVE Gel Antibody Screen Negative Crossmatch See Detail 11/20/18 Range/Units 05:38 WBC 8.92 (3.98-10.04) K/mm3 RBC 1.49 L (3.98-5.22) M/mm3 Hgb 4.6 L* (11.2-15.7) gm/L Hct 15.0 L (34.1-44.9) % MCV 100.7 H (79.4-94.8) fl MCH 30.9 (25.6-32.2) pg MCHC 30.7 L (32.2-35.5) g/dl RDW Std Deviation 52.5 H (36.4-46.3) fL Plt Count 107 L (182-369) K/mm3 MPV 10.8 (9.4-12.3) fl Neut % (Auto) 67.1 (34.0-71.1) % Lymph % (Auto) 20.0 (19.3-51.7) % [place] % (Auto) 12.0 (4.7-12.5) % Eos % (Auto) 0.1 L (0.7-5.8) Baso % (Auto) 0.1 (0.1-1.2) % Neut # (Auto) 5.99 (1.56-6.13) K/mm3 Lymph # (Auto) 1.78 (1.18-3.74) K/mm3 [place] # (Auto) 1.07 H (0.24-0.36) K/mm3 Eos # (Auto) 0.01 L (0.04-0.36) K/mm3 Baso # (Auto) 0.01 (0.01-0.08) K/mm3 Manual Slide Review Abnormal smear PT (9.5-12.1) SECONDS INR Sodium (136-145) mEq/L Potassium (3.5-5.1) mEq/L Chloride (98-107) mEq/L Carbon Dioxide (21-32) mEq/L Anion Gap (5-15) BUN (7-18) mg/dL Creatinine (0.55-1.02) mg/dL Est Cr Clr Drug Dosing mL/min Estimated GFR (MDRD) (>60) mL/min BUN/Creatinine Ratio (14-18) Glucose (80-115) mg/dL Lactic Acid (0.4-2.0) mmol/L Calcium (8.5-10.1) mg/dL Magnesium (1.8-2.4) mg/dl Total Bilirubin (0.2-1.0) mg/dL AST (15-37) U/L ALT (14-59) U/L Alkaline Phosphatase (46-116) U/L Ammonia (11-32) umol/L Troponin I (0.00-0.056) ng/mL Total Protein (6.4-8.2) g/dl Albumin (3.4-5.0) g/dl Globulin gm/dL Albumin/Globulin Ratio (1-2) Lipase (73-393) U/L Ethyl Alcohol (0.00) gm% Blood Type Gel Antibody Screen Crossmatch Result Diagrams: 11/20/18 05:38 11/20/18 05:38 - Problem List (1) Dehydration SNOMED Code(s): 40101127 ICD Code: E86.0 - DEHYDRATION Status: Acute (2) Hepatic encephalopathy SNOMED Code(s): 46235725 ICD Code: K72.90 - HEPATIC FAILURE, UNSPECIFIED WITHOUT COMA Status: Acute Priority: High (3) Hyperammonemia SNOMED Code(s): 6057410 ICD Code: E72.20 - DISORDER OF UREA CYCLE METABOLISM, UNSPECIFIED Status: Acute (4) Hypomagnesemia SNOMED Code(s): 904094958 ICD Code: E83.42 - HYPOMAGNESEMIA Status: Acute Priority: Medium (5) Hypotension SNOMED Code(s): 09725442 ICD Code: I95.9 - HYPOTENSION, UNSPECIFIED Status: Acute Qualifiers: Hypotension type: hypotension due to hypovolemia Qualified Code(s): I95.89 - Other hypotension; E86.1 - Hypovolemia (6) Lower GI bleed SNOMED Code(s): 81592459 ICD Code: K92.2 - GASTROINTESTINAL HEMORRHAGE, UNSPECIFIED Status: Acute (7) Severe anemia SNOMED Code(s): 560628492 ICD Code: D64.9 - ANEMIA, UNSPECIFIED Status: Acute (8) Alcoholism SNOMED Code(s): 8577978 ICD Code: F10.20 - ALCOHOL DEPENDENCE, UNCOMPLICATED Status: Chronic Priority: Low (9) CKD (chronic kidney disease), stage II SNOMED Code(s): 763300961 ICD Code: N18.2 - CHRONIC KIDNEY DISEASE, STAGE 2 (MILD) Status: Chronic Priority: Medium (10) Esophageal varices determined by endoscopy SNOMED Code(s): 15499541, 445865506 ICD Code: I85.00 - ESOPHAGEAL VARICES WITHOUT BLEEDING Status: Chronic Priority: Low (11) Medical non-compliance SNOMED Code(s): 808923401 ICD Code: Z91.19 - PATIENT'S NONCOMPLIANCE W OTH MEDICAL TREATMENT AND REGIMEN Status: Chronic Priority: High Problem List Initiated/Reviewed/Updated: Yes Orders Last 24hrs: Active Orders 24 hr Category Date Time Status Patient Status [ADT] Routine ADT 11/20/18 05:51 Active Antiembolic Devices [RC] PER UNIT ROUTINE Care 11/20/18 03:37 Active CIWAA Assessment [RC] Q15M Care 11/20/18 03:42 Active CIWAA Assessment [RC] Q1H Care 11/20/18 03:42 Active CIWAA Assessment [RC] Q30M Care 11/20/18 03:42 Active CIWAA Assessment [RC] Q4H Care 11/20/18 03:42 Active Mcconnell Catheter Insertion [Insert Urinary Catheter] [OM. Care 11/20/18 06:15 Ordered PC] Q24H Head of Bed Elevation [RC] ASDIRECTED Care 11/20/18 03:44 Active Notify Provider Consults [RC] ASDIRECTED Care 11/20/18 03:54 Active Notify Provider [RC] PRN Care 11/20/18 03:42 Active Up With Assistance [RC] ASDIRECTED Care 11/20/18 03:45 Active Urinary Catheter Assessment [RC] ASDIRECTED Care 11/20/18 06:08 Active Consult to Physician [CONS] Routine Cons 11/20/18 03:53 Active NPO Now [Nothing per Oral Now Diet] [DIET] Diet 11/20/18 Breakfast Active CXR [Chest 1V Frontal] [CR] Stat Exams 11/19/18 23:03 Taken RED BLOOD CELLS LP [BBK] Routine Lab 11/20/18 04:04 Results TYPE AND SCREEN [BBK] Routine Lab 11/20/18 04:04 Results Acetaminophen [Tylenol] Med 11/20/18 01:52 Active 650 mg PO Q4H PRN Furosemide [Lasix] Med 11/20/18 09:00 Once 40 mg IVPUSH ONETIME ONE LORazepam [Ativan] Med 11/20/18 03:45 Active 1 - 3 mg IV ASDIRECTED LORazepam [Ativan] Med 11/20/18 03:40 Active 2 mg IVPUSH Q8H PRN Lactulose [Cephulac] Med 11/20/18 09:00 Once 30 gm PO ONETIME ONE Norepinephrine [Levophed] 4 mg Med 11/20/18 06:15 Active Dextrose 5% in Water 246 ml IV TITRATE Octreotide [SandoSTATIN] 500 mcg Med 11/20/18 07:15 Active Sodium Chloride 0.9% [Normal Saline] 499 ml IV Q10H Pantoprazole [ProTONIX IV] 80 mg Med 11/20/18 07:15 Active Sodium Chloride 0.9% [Normal Saline] 100 ml IV CONTINUOUS Sodium Chloride 0.9% [Normal Saline] 1,000 ml Med 11/20/18 04:00 Active IV ASDIRECTED Blood Transfusion Reflex Orders [OM.PC] Routine Oth 11/20/18 04:04 Ordered Blood Transfusion Reflex Orders [OM.PC] Routine Oth 11/20/18 06:16 Ordered EASTON Hose [Antiembolic Hose] [OM.PC] Routine Oth 11/20/18 03:37 Ordered Transfuse PRBC [Transfuse Red Blood Cells] [COMM] Oth 11/20/18 06:00 Ordered Routine Transfuse RBC [Transfuse Red Blood Cells] [COMM] Stat Oth 11/20/18 00:26 Ordered Code Status [Resuscitation Status] Routine Resus Stat 11/20/18 01:52 Ordered Medication Orders Acetaminophen (Tylenol) 650 mg PO Q4H PRN PRN Reason: Pain/Fever Last Admin: 11/20/18 03:03 Dose: 650 mg Furosemide (Lasix) 40 mg IVPUSH ONETIME ONE Stop: 11/20/18 09:01 Last Admin: 11/20/18 06:55 Dose: 40 mg Sodium Chloride (Normal Saline) 1,000 mls @ 100 mls/hr IV ASDIRECTED BIANCA Norepinephrine Bitartrate 4 mg (/ Dextrose/Water) 250 mls @ 7.5 mls/hr IV TITRATE BIANCA; Protocol Last Titration: 11/20/18 06:33 Dose: 3 mcg/min, 11.25 mls/hr Admin: 11/20/18 06:24 Dose: 2 mcg/min, 7.5 mls/hr Pantoprazole Sodium 80 mg/ (Sodium Chloride) 100 mls @ 10 mls/hr IV CONTINUOUS BIANCA Octreotide Acetate 500 mcg/ (Sodium Chloride) 500 mls @ 50 mls/hr IV Q10H BIANCA Lactulose (Cephulac) 30 gm PO ONETIME ONE Stop: 11/20/18 09:01 Lorazepam (Ativan) 2 mg IVPUSH Q8H PRN PRN Reason: Seizures Lorazepam (Ativan) 1 - 3 mg IV ASDIRECTED BIANCA; Protocol Assessment/Plan Comment:: Impression: Acute GI blood loss with a BM resulting in hypotension, S/P 1.5 units thus far PRBCs 2 liters of crystalloid given; Levophed titrate to MAP 65 Octreotide; Protonix dripped started prior to transfer; baseline HgB on admission ~8.0; repeat after bloody stool, ~4.0. History of hepatic encephalopathy; alert and oriented, responds to questions and understands reason for transfer and agrees. ETOH, 0.0; recent binge drinking, reported as > 24 drinks weekly Alcohol dependence/abuse; Alcoholism, stage IV. Abnormal electrolytes, Mg 1.2 Elevated ammonia, 120 Hepatic encephalopathy Medical noncompliance, stopped meds for 1 month in [place]. Tobacco dependence Substance abuse, marijuana; UDS not performed in ED Remote cocaine use. Chronic Alcoholic liver disease Esophageal varices, s/p banding Depression, NOS Psychosis, NOS HTN Plan: Transfer to [facility] Gen Surg eval Fluid resuscitation Transfuse, T/C 4 units PRBCs, 2-3 units pre-transfer Protonix/Octreotide as written Ativan for withdrawal seizures Lactulose when hemodynamically stable CIWAA protocol SZ precautions Aspiration precautions DVT/GI prophylaxis
--- NOTE | 2018-11-20 07:39 | PCM.DCSUM1 ---
Discharge Summary - Hospital Course Free Text/Narrative:: Patient was seen urgently after transfer to the ICU after hypotensive episode after transfer to MS unit. The patient had just had a bowel movement with blood. She had been admitted to MS unit between [id number] hour. Prior to the bowel movement she had been stable. In addition to the hospitalist service, she was seen by general surgery for evaluation during an acute GI bleed resulting in hypotension. Orders were given by both services to maintain stability of the patient. The gen surgeon called the ED in [place] and spoke to Dr Kurtz, an ED provider. Transfer was initiated after their discussion. The patient was stable, and coherent at transfer and had not received any sedative prior to transfer. The primary focus of care was addressing GI blood loss. Lactulose had been avoided during her stay before transfer. It had been ordered as part of her morning medications. HPI Initial Comments: 63 year old female with PMH of alcoholic cirrhosis, presents with a complaint of dizziness. She apparently reported blood per rectum when passing stool approximately 1600 hour on 11/19/18. She admitted to the ED provider that she had been drinking copious amounts of alcohol for a month in [place]. During this time she had not been taking any of her home medication. The patient was unclear when she had her last drink. Blood alcohol level was 0.0; however her ammonia level was 120. Additional lab results were abnormal including but not limiting Mg, Hgb; the patient was to receive 2 units of PRBCs, and MgSO4 replaced as ordered prior to transfer to [facility] Surg unit. The patient did not have N/V, bloody per rectum or bloody stools in the ED. Blood pressure and heart rate had responded to 1 liter of sodium chloride. The patient is a full code and admitted to [facility] with telemetry. Patient was received after 0130 hour, stable at the time of initial assessment by MS nurse. After the patient had a BM with blood and stool, she became hypotensive. She was placed in Trendelenburg, a 1 liter fluid was given and an appropriate BP response occurred. She was transferred to ICU another liter of NaCl 0.9 was given. The charge nurse requested the PRBCs; the patient received at least 1.5 units of the pack red blood cells before the flight crew arrived. She was alert and oriented prior to the transfer. No sedation was given prior to transfer. Lactulose had been avoided to prevent additional GI blood loss. The general surgeon who had been consulted saw the patient, and called [facility] for transfer to a higher level of care. The patient had a total of three IV sites. Levophed had been ordered and started prior to transfer to maintain a MAP 65. The reason for transfer was provided by several providers in including the hospitalist staff, ICU nurse as well as the surgeon of record. The patient as well as her spouse agreed to the transfer. Diagnosis: Stroke: No - Discharge Data Discharge Date: 11/20/18 Discharge Disposition: DC/Tfer to Acute Hospital 02 Condition: Poor - Patient Summary/Data Consults: Consultations 11/20/18 03:53 Consult to Physician [CONS] Routine - Patient Instructions Diet: No Alcoholic Beverages, NPO Activity: Bedrest Driving: Do Not Drive Showering/Bathing: No Showering Notify Provider of: Fever, Increased Pain, Nausea and/or Vomiting - Discharge Plan *PRESCRIPTION DRUG MONITORING PROGRAM REVIEWED*: Not Applicable *COPY OF PRESCRIPTION DRUG MONITORING REPORT IN PATIENT EWA: Not Applicable Prescriptions/Med Rec: Lactulose 30 ml PO TID #14 bottle Home Medications: Home Meds Folic Acid 1 mg PO DAILY 10/04/15 [History] Venlafaxine HCl [Venlafaxine ER] 150 mg PO DAILY 10/04/15 [History] Magnesium Oxide 400 mg PO TID 12/24/17 [History] B Complex W-C No.20/Folic Acid [Triphrocaps Softgel] 1 tab PO DAILY 11/20/18 [ History] LORazepam [Ativan] 1 - 3 mg IV ASDIRECTED vial 11/20/18 [Rx] LORazepam [Ativan] 2 mg IVPUSH Q8H PRN vial 11/20/18 [Rx] Lactulose 30 ml PO TID #14 bottle 11/20/18 [Rx] Norepinephrine [Levophed] 4 mg IV TITRATE sdv 11/20/18 [Rx] Octreotide [SandoSTATIN] 500 mcg IV Q10H sdv 11/20/18 [Rx] Pantoprazole [ProTONIX IV] 80 mg IV CONTINUOUS vial 11/20/18 [Rx] Spironolactone [Aldactone] 25 mg PO DAILY 11/20/18 [History] Sucralfate 1 gm PO QID 11/20/18 [History] Patient Handouts: Blood Transfusion, Adult, [id number], Alcohol Use Disorder , Alcoholic Liver Disease, Hypomagnesemia, Hypotension, Dehydration, Adult Forms: ED Department Discharge Referrals: Leighann Wayne MD [Primary Care Provider] - - Discharge Summary/Plan Comment DC Time >30 min.: No Discharge Summary/Plan Comment: Impression: Acute GI blood loss with hypotension, S/P 1.5 units thus far PRBCs 2 liters of crystalloid given; Levophed titrate to MAP 65 Octreotide; Protonix dripped started prior to transfer; baseline HgB on admission ~8.0; repeat at bloody stool, ~4.0 History of hepatic encephalopathy; alert and oriented, responds to questions and understands reason for transfer and agrees. ETOH, 0.0; recent binge drinking, reported as > 24 drinks weekly Abnormal electrolytes, Mg 1.2 Elevated ammonia, 120 Hepatic encephalopathy Medical noncompliance, stopped meds for 1 month in [place]. Tobacco dependence Substance abuse, marijuana; UDS not performed Chronic Alcoholic liver disease Esophageal varices, s/p banding Depression, NOS Psychosis, NOS Plan: Transfer to [facility] Gen Surg eval Fluid resuscitation Transfuse, T/C 4 units PRBCs, 2-3 units pre-transfer Protonix/Octreotide as written Ativan for withdrawal seizures Lactulose when hemodynamically stable CIWAA protocol SZ precautions Aspiration precautions DVT/GI prophylaxis - General Info Date of Service: 11/20/18 Functional Status: Reports: Urinating - Review of Systems General: Reports: Weakness HEENT: Reports: No Symptoms Pulmonary: Reports: No Symptoms Cardiovascular: Reports: No Symptoms Gastrointestinal: Reports: Other (loose stool with blood) Genitourinary: Reports: No Symptoms Musculoskeletal: Reports: No Symptoms Skin: Reports: No Symptoms Neurological: Reports: No Symptoms Psychiatric: Reports: No Symptoms - Patient Data Vitals - Most Recent: Last Vital Signs Temp 36.2 C 11/20/18 07:19 Pulse 96 11/20/18 07:19 Resp 19 11/20/18 07:19 BP 99/52 L 11/20/18 07:19 Pulse Ox 91 L 11/20/18 01:16 Weight - Most Recent: 52.118 kg I&O - Last 24 hours: Intake & Output 11/19/18 11/20/18 11/20/18 21:59 06:59 14:59 Intake Total 0 Balance 0 Lab Results - Last 24 hrs: Laboratory Results - last 24 hr 11/19/18 11/19/18 11/19/18 Range/Units 22:01 22:01 22:01 WBC 7.88 (3.98-10.04) K/mm3 RBC 2.54 L (3.98-5.22) M/mm3 Hgb 8.0 L (11.2-15.7) gm/L Hct 24.6 L (34.1-44.9) % MCV 96.9 H (79.4-94.8) fl MCH 31.5 (25.6-32.2) pg MCHC 32.5 (32.2-35.5) g/dl RDW Std Deviation 51.2 H (36.4-46.3) fL Plt Count 147 L (182-369) K/mm3 MPV 10.5 (9.4-12.3) fl Neut % (Auto) 71.8 H (34.0-71.1) % Lymph % (Auto) 18.9 L (19.3-51.7) % [place] % (Auto) 8.4 (4.7-12.5) % Eos % (Auto) 0.5 L (0.7-5.8) Baso % (Auto) 0.3 (0.1-1.2) % Neut # (Auto) 5.66 (1.56-6.13) K/mm3 Lymph # (Auto) 1.49 (1.18-3.74) K/mm3 [place] # (Auto) 0.66 H (0.24-0.36) K/mm3 Eos # (Auto) 0.04 (0.04-0.36) K/mm3 Baso # (Auto) 0.02 (0.01-0.08) K/mm3 Manual Slide Review PT (9.5-12.1) SECONDS INR Sodium 139 (136-145) mEq/L Potassium 3.9 (3.5-5.1) mEq/L Chloride 108 H (98-107) mEq/L Carbon Dioxide 19 L (21-32) mEq/L Anion Gap 15.9 H (5-15) BUN 20 H (7-18) mg/dL Creatinine 1.0 (0.55-1.02) mg/dL Est Cr Clr Drug Dosing 48.45 mL/min Estimated GFR (MDRD) 56 (>60) mL/min BUN/Creatinine Ratio 20.0 H (14-18) Glucose 115 (80-115) mg/dL Lactic Acid 2.4 H (0.4-2.0) mmol/L Calcium 8.3 L (8.5-10.1) mg/dL Magnesium 1.2 L (1.8-2.4) mg/dl Total Bilirubin 2.2 H (0.2-1.0) mg/dL AST 37 (15-37) U/L ALT 28 (14-59) U/L Alkaline Phosphatase 68 (46-116) U/L Ammonia (11-32) umol/L Troponin I 0.018 (0.00-0.056) ng/mL Total Protein 5.6 L (6.4-8.2) g/dl Albumin 2.3 L (3.4-5.0) g/dl Globulin 3.3 gm/dL Albumin/Globulin Ratio 0.7 L (1-2) Lipase 173 (73-393) U/L Ethyl Alcohol (0.00) gm% Blood Type Gel Antibody Screen Crossmatch 11/19/18 11/19/18 11/19/18 Range/Units 22:01 22:01 22:01 WBC (3.98-10.04) K/mm3 RBC (3.98-5.22) M/mm3 Hgb (11.2-15.7) gm/L Hct (34.1-44.9) % MCV (79.4-94.8) fl MCH (25.6-32.2) pg MCHC (32.2-35.5) g/dl RDW Std Deviation (36.4-46.3) fL Plt Count (182-369) K/mm3 MPV (9.4-12.3) fl Neut % (Auto) (34.0-71.1) % Lymph % (Auto) (19.3-51.7) % [place] % (Auto) (4.7-12.5) % Eos % (Auto) (0.7-5.8) Baso % (Auto) (0.1-1.2) % Neut # (Auto) (1.56-6.13) K/mm3 Lymph # (Auto) (1.18-3.74) K/mm3 [place] # (Auto) (0.24-0.36) K/mm3 Eos # (Auto) (0.04-0.36) K/mm3 Baso # (Auto) (0.01-0.08) K/mm3 Manual Slide Review PT 14.0 H (9.5-12.1) SECONDS INR 1.29 Sodium (136-145) mEq/L Potassium (3.5-5.1) mEq/L Chloride (98-107) mEq/L Carbon Dioxide (21-32) mEq/L Anion Gap (5-15) BUN (7-18) mg/dL Creatinine (0.55-1.02) mg/dL Est Cr Clr Drug Dosing mL/min Estimated GFR (MDRD) (>60) mL/min BUN/Creatinine Ratio (14-18) Glucose (80-115) mg/dL Lactic Acid (0.4-2.0) mmol/L Calcium (8.5-10.1) mg/dL Magnesium (1.8-2.4) mg/dl Total Bilirubin (0.2-1.0) mg/dL AST (15-37) U/L ALT (14-59) U/L Alkaline Phosphatase (46-116) U/L Ammonia 120 H (11-32) umol/L Troponin I (0.00-0.056) ng/mL Total Protein (6.4-8.2) g/dl Albumin (3.4-5.0) g/dl Globulin gm/dL Albumin/Globulin Ratio (1-2) Lipase (73-393) U/L Ethyl Alcohol 0.00 (0.00) gm% Blood Type Gel Antibody Screen Crossmatch 11/19/18 11/20/18 11/20/18 Range/Units 22:01 05:38 05:38 WBC (3.98-10.04) K/mm3 RBC (3.98-5.22) M/mm3 Hgb (11.2-15.7) gm/L Hct (34.1-44.9) % MCV (79.4-94.8) fl MCH (25.6-32.2) pg MCHC (32.2-35.5) g/dl RDW Std Deviation (36.4-46.3) fL Plt Count (182-369) K/mm3 MPV (9.4-12.3) fl Neut % (Auto) (34.0-71.1) % Lymph % (Auto) (19.3-51.7) % [place] % (Auto) (4.7-12.5) % Eos % (Auto) (0.7-5.8) Baso % (Auto) (0.1-1.2) % Neut # (Auto) (1.56-6.13) K/mm3 Lymph # (Auto) (1.18-3.74) K/mm3 [place] # (Auto) (0.24-0.36) K/mm3 Eos # (Auto) (0.04-0.36) K/mm3 Baso # (Auto) (0.01-0.08) K/mm3 Manual Slide Review PT (9.5-12.1) SECONDS INR Sodium 142 (136-145) mEq/L Potassium 4.3 (3.5-5.1) mEq/L Chloride 116 H (98-107) mEq/L Carbon Dioxide 14 L (21-32) mEq/L Anion Gap 16.3 H (5-15) BUN 25 H (7-18) mg/dL Creatinine 1.1 H (0.55-1.02) mg/dL Est Cr Clr Drug Dosing 43.63 mL/min Estimated GFR (MDRD) 50 (>60) mL/min BUN/Creatinine Ratio 22.7 H (14-18) Glucose 109 (80-115) mg/dL Lactic Acid (0.4-2.0) mmol/L Calcium 7.3 L (8.5-10.1) mg/dL Magnesium 2.5 H (1.8-2.4) mg/dl Total Bilirubin (0.2-1.0) mg/dL AST (15-37) U/L ALT (14-59) U/L Alkaline Phosphatase (46-116) U/L Ammonia 89 H (11-32) umol/L Troponin I (0.00-0.056) ng/mL Total Protein (6.4-8.2) g/dl Albumin (3.4-5.0) g/dl Globulin gm/dL Albumin/Globulin Ratio (1-2) Lipase (73-393) U/L Ethyl Alcohol (0.00) gm% Blood Type A POSITIVE Gel Antibody Screen Negative Crossmatch See Detail 11/20/18 Range/Units 05:38 WBC 8.92 (3.98-10.04) K/mm3 RBC 1.49 L (3.98-5.22) M/mm3 Hgb 4.6 L* (11.2-15.7) gm/L Hct 15.0 L (34.1-44.9) % MCV 100.7 H (79.4-94.8) fl MCH 30.9 (25.6-32.2) pg MCHC 30.7 L (32.2-35.5) g/dl RDW Std Deviation 52.5 H (36.4-46.3) fL Plt Count 107 L (182-369) K/mm3 MPV 10.8 (9.4-12.3) fl Neut % (Auto) 67.1 (34.0-71.1) % Lymph % (Auto) 20.0 (19.3-51.7) % [place] % (Auto) 12.0 (4.7-12.5) % Eos % (Auto) 0.1 L (0.7-5.8) Baso % (Auto) 0.1 (0.1-1.2) % Neut # (Auto) 5.99 (1.56-6.13) K/mm3 Lymph # (Auto) 1.78 (1.18-3.74) K/mm3 [place] # (Auto) 1.07 H (0.24-0.36) K/mm3 Eos # (Auto) 0.01 L (0.04-0.36) K/mm3 Baso # (Auto) 0.01 (0.01-0.08) K/mm3 Manual Slide Review Abnormal smear PT (9.5-12.1) SECONDS INR Sodium (136-145) mEq/L Potassium (3.5-5.1) mEq/L Chloride (98-107) mEq/L Carbon Dioxide (21-32) mEq/L Anion Gap (5-15) BUN (7-18) mg/dL Creatinine (0.55-1.02) mg/dL Est Cr Clr Drug Dosing mL/min Estimated GFR (MDRD) (>60) mL/min BUN/Creatinine Ratio (14-18) Glucose (80-115) mg/dL Lactic Acid (0.4-2.0) mmol/L Calcium (8.5-10.1) mg/dL Magnesium (1.8-2.4) mg/dl Total Bilirubin (0.2-1.0) mg/dL AST (15-37) U/L ALT (14-59) U/L Alkaline Phosphatase (46-116) U/L Ammonia (11-32) umol/L Troponin I (0.00-0.056) ng/mL Total Protein (6.4-8.2) g/dl Albumin (3.4-5.0) g/dl Globulin gm/dL Albumin/Globulin Ratio (1-2) Lipase (73-393) U/L Ethyl Alcohol (0.00) gm% Blood Type Gel Antibody Screen Crossmatch Med Orders - Current: Current Medications Acetaminophen (Tylenol) 650 mg PO Q4H PRN PRN Reason: Pain/Fever Last Admin: 11/20/18 03:03 Dose: 650 mg Furosemide (Lasix) 40 mg IVPUSH ONETIME ONE Stop: 11/20/18 09:01 Last Admin: 11/20/18 06:55 Dose: 40 mg Sodium Chloride (Normal Saline) 1,000 mls @ 100 mls/hr IV ASDIRECTED [facility] Norepinephrine Bitartrate 4 mg (/ Dextrose/Water) 250 mls @ 7.5 mls/hr IV TITRATE [facility]; Protocol Last Titration: 11/20/18 06:33 Dose: 3 mcg/min, 11.25 mls/hr Pantoprazole Sodium 80 mg/ (Sodium Chloride) 100 mls @ 10 mls/hr IV CONTINUOUS [facility] Octreotide Acetate 500 mcg/ (Sodium Chloride) 500 mls @ 50 mls/hr IV Q10H [facility] Lactulose (Cephulac) 30 gm PO ONETIME ONE Stop: 11/20/18 09:01 Lorazepam (Ativan) 2 mg IVPUSH Q8H PRN PRN Reason: Seizures Lorazepam (Ativan) 1 - 3 mg IV ASDIRECTED [facility]; Protocol Discontinued Medications Furosemide (Lasix) Confirm Administered Dose 40 mg .ROUTE .STK-MED ONE Stop: 11/20/18 06:55 Sodium Chloride (Normal Saline) 1,000 mls @ 1,000 mls/hr IV ASDIRECTED [facility] Last Admin: 11/19/18 21:50 Dose: 1,000 mls/hr Magnesium Sulfate 2 gm/ Premix 50 mls @ 25 mls/hr IV ONETIME ONE Stop: 11/20/18 03:26 Last Admin: 11/20/18 00:56 Dose: 25 mls/hr Magnesium Sulfate 2 gm/ Premix 50 mls @ 25 mls/hr IV ONETIME ONE Stop: 11/20/18 05:33 Last Admin: 11/20/18 04:36 Dose: 25 mls/hr Sodium Chloride (Normal Saline) 500 mls @ 999 mls/hr IV ONETIME ONE Stop: 11/20/18 06:26 Last Admin: 11/20/18 05:30 Dose: 999 mls/hr Sodium Chloride (Normal Saline) 500 mls @ 999 mls/hr IV .BOLUS ONE Stop: 11/20/18 07:00 Last Admin: 11/20/18 06:10 Dose: 999 mls/hr Pantoprazole Sodium (Protonix Iv) 40 mg IVPUSH Q12H [facility] Last Admin: 11/20/18 06:31 Dose: 40 mg - Exam Quality Assessment: Reports: Supplemental Oxygen General: Reports: Alert, Oriented, Cooperative, No Acute Distress HEENT: Reports: Pupils Equal, Pupils Reactive, EOMI, Scleral Icterus Neck: Reports: Trachea Midline, No JVD Lungs: Reports: Normal Respiratory Effort, Rhonchi Cardiovascular: Reports: Regular Rate, Regular Rhythm GI/Abdominal Exam: Normal Bowel Sounds, Soft, Non-Tender, No Distention (Female) Exam: Deferred Rectal (Female) Exam: Deferred Back Exam: Reports: Normal Inspection Extremities: Other (icterus) Skin: Reports: Warm Neurological: Reports: No New Focal Deficit, Normal Speech Psy/Mental Status: Reports: Alert, Normal Affect, Normal Mood
--- NOTE | 2018-11-20 07:47 | PCM.CONSN ---
- General Info Date of Service: 11/20/18 - Patient Data Vitals - Most Recent: Last Vital Signs Temp 97.2 F 11/20/18 07:19 Pulse 96 11/20/18 07:19 Resp 19 11/20/18 07:19 BP 99/52 L 11/20/18 07:19 Pulse Ox 91 L 11/20/18 01:16 Weight - Most Recent: 52.118 kg I&O - Last 24 Hours: Intake & Output 11/19/18 11/19/18 11/20/18 15:59 23:59 08:59 Intake Total 0 Balance 0 Lab Results Last 24 Hours: Laboratory Results - last 24 hr 11/19/18 11/19/18 11/19/18 Range/Units 22:01 22:01 22:01 WBC 7.88 (3.98-10.04) K/mm3 RBC 2.54 L (3.98-5.22) M/mm3 Hgb 8.0 L (11.2-15.7) gm/L Hct 24.6 L (34.1-44.9) % MCV 96.9 H (79.4-94.8) fl MCH 31.5 (25.6-32.2) pg MCHC 32.5 (32.2-35.5) g/dl RDW Std Deviation 51.2 H (36.4-46.3) fL Plt Count 147 L (182-369) K/mm3 MPV 10.5 (9.4-12.3) fl Neut % (Auto) 71.8 H (34.0-71.1) % Lymph % (Auto) 18.9 L (19.3-51.7) % [place] % (Auto) 8.4 (4.7-12.5) % Eos % (Auto) 0.5 L (0.7-5.8) Baso % (Auto) 0.3 (0.1-1.2) % Neut # (Auto) 5.66 (1.56-6.13) K/mm3 Lymph # (Auto) 1.49 (1.18-3.74) K/mm3 [place] # (Auto) 0.66 H (0.24-0.36) K/mm3 Eos # (Auto) 0.04 (0.04-0.36) K/mm3 Baso # (Auto) 0.02 (0.01-0.08) K/mm3 Manual Slide Review PT (9.5-12.1) SECONDS INR Sodium 139 (136-145) mEq/L Potassium 3.9 (3.5-5.1) mEq/L Chloride 108 H (98-107) mEq/L Carbon Dioxide 19 L (21-32) mEq/L Anion Gap 15.9 H (5-15) BUN 20 H (7-18) mg/dL Creatinine 1.0 (0.55-1.02) mg/dL Est Cr Clr Drug Dosing 48.45 mL/min Estimated GFR (MDRD) 56 (>60) mL/min BUN/Creatinine Ratio 20.0 H (14-18) Glucose 115 (80-115) mg/dL Lactic Acid 2.4 H (0.4-2.0) mmol/L Calcium 8.3 L (8.5-10.1) mg/dL Magnesium 1.2 L (1.8-2.4) mg/dl Total Bilirubin 2.2 H (0.2-1.0) mg/dL AST 37 (15-37) U/L ALT 28 (14-59) U/L Alkaline Phosphatase 68 (46-116) U/L Ammonia (11-32) umol/L Troponin I 0.018 (0.00-0.056) ng/mL Total Protein 5.6 L (6.4-8.2) g/dl Albumin 2.3 L (3.4-5.0) g/dl Globulin 3.3 gm/dL Albumin/Globulin Ratio 0.7 L (1-2) Lipase 173 (73-393) U/L Ethyl Alcohol (0.00) gm% Blood Type Gel Antibody Screen Crossmatch 11/19/18 11/19/18 11/19/18 Range/Units 22:01 22:01 22:01 WBC (3.98-10.04) K/mm3 RBC (3.98-5.22) M/mm3 Hgb (11.2-15.7) gm/L Hct (34.1-44.9) % MCV (79.4-94.8) fl MCH (25.6-32.2) pg MCHC (32.2-35.5) g/dl RDW Std Deviation (36.4-46.3) fL Plt Count (182-369) K/mm3 MPV (9.4-12.3) fl Neut % (Auto) (34.0-71.1) % Lymph % (Auto) (19.3-51.7) % [place] % (Auto) (4.7-12.5) % Eos % (Auto) (0.7-5.8) Baso % (Auto) (0.1-1.2) % Neut # (Auto) (1.56-6.13) K/mm3 Lymph # (Auto) (1.18-3.74) K/mm3 [place] # (Auto) (0.24-0.36) K/mm3 Eos # (Auto) (0.04-0.36) K/mm3 Baso # (Auto) (0.01-0.08) K/mm3 Manual Slide Review PT 14.0 H (9.5-12.1) SECONDS INR 1.29 Sodium (136-145) mEq/L Potassium (3.5-5.1) mEq/L Chloride (98-107) mEq/L Carbon Dioxide (21-32) mEq/L Anion Gap (5-15) BUN (7-18) mg/dL Creatinine (0.55-1.02) mg/dL Est Cr Clr Drug Dosing mL/min Estimated GFR (MDRD) (>60) mL/min BUN/Creatinine Ratio (14-18) Glucose (80-115) mg/dL Lactic Acid (0.4-2.0) mmol/L Calcium (8.5-10.1) mg/dL Magnesium (1.8-2.4) mg/dl Total Bilirubin (0.2-1.0) mg/dL AST (15-37) U/L ALT (14-59) U/L Alkaline Phosphatase (46-116) U/L Ammonia 120 H (11-32) umol/L Troponin I (0.00-0.056) ng/mL Total Protein (6.4-8.2) g/dl Albumin (3.4-5.0) g/dl Globulin gm/dL Albumin/Globulin Ratio (1-2) Lipase (73-393) U/L Ethyl Alcohol 0.00 (0.00) gm% Blood Type Gel Antibody Screen Crossmatch 11/19/18 11/20/18 11/20/18 Range/Units 22:01 05:38 05:38 WBC (3.98-10.04) K/mm3 RBC (3.98-5.22) M/mm3 Hgb (11.2-15.7) gm/L Hct (34.1-44.9) % MCV (79.4-94.8) fl MCH (25.6-32.2) pg MCHC (32.2-35.5) g/dl RDW Std Deviation (36.4-46.3) fL Plt Count (182-369) K/mm3 MPV (9.4-12.3) fl Neut % (Auto) (34.0-71.1) % Lymph % (Auto) (19.3-51.7) % [place] % (Auto) (4.7-12.5) % Eos % (Auto) (0.7-5.8) Baso % (Auto) (0.1-1.2) % Neut # (Auto) (1.56-6.13) K/mm3 Lymph # (Auto) (1.18-3.74) K/mm3 [place] # (Auto) (0.24-0.36) K/mm3 Eos # (Auto) (0.04-0.36) K/mm3 Baso # (Auto) (0.01-0.08) K/mm3 Manual Slide Review PT (9.5-12.1) SECONDS INR Sodium 142 (136-145) mEq/L Potassium 4.3 (3.5-5.1) mEq/L Chloride 116 H (98-107) mEq/L Carbon Dioxide 14 L (21-32) mEq/L Anion Gap 16.3 H (5-15) BUN 25 H (7-18) mg/dL Creatinine 1.1 H (0.55-1.02) mg/dL Est Cr Clr Drug Dosing 43.63 mL/min Estimated GFR (MDRD) 50 (>60) mL/min BUN/Creatinine Ratio 22.7 H (14-18) Glucose 109 (80-115) mg/dL Lactic Acid (0.4-2.0) mmol/L Calcium 7.3 L (8.5-10.1) mg/dL Magnesium 2.5 H (1.8-2.4) mg/dl Total Bilirubin (0.2-1.0) mg/dL AST (15-37) U/L ALT (14-59) U/L Alkaline Phosphatase (46-116) U/L Ammonia 89 H (11-32) umol/L Troponin I (0.00-0.056) ng/mL Total Protein (6.4-8.2) g/dl Albumin (3.4-5.0) g/dl Globulin gm/dL Albumin/Globulin Ratio (1-2) Lipase (73-393) U/L Ethyl Alcohol (0.00) gm% Blood Type A POSITIVE Gel Antibody Screen Negative Crossmatch See Detail 11/20/18 Range/Units 05:38 WBC 8.92 (3.98-10.04) K/mm3 RBC 1.49 L (3.98-5.22) M/mm3 Hgb 4.6 L* (11.2-15.7) gm/L Hct 15.0 L (34.1-44.9) % MCV 100.7 H (79.4-94.8) fl MCH 30.9 (25.6-32.2) pg MCHC 30.7 L (32.2-35.5) g/dl RDW Std Deviation 52.5 H (36.4-46.3) fL Plt Count 107 L (182-369) K/mm3 MPV 10.8 (9.4-12.3) fl Neut % (Auto) 67.1 (34.0-71.1) % Lymph % (Auto) 20.0 (19.3-51.7) % [place] % (Auto) 12.0 (4.7-12.5) % Eos % (Auto) 0.1 L (0.7-5.8) Baso % (Auto) 0.1 (0.1-1.2) % Neut # (Auto) 5.99 (1.56-6.13) K/mm3 Lymph # (Auto) 1.78 (1.18-3.74) K/mm3 [place] # (Auto) 1.07 H (0.24-0.36) K/mm3 Eos # (Auto) 0.01 L (0.04-0.36) K/mm3 Baso # (Auto) 0.01 (0.01-0.08) K/mm3 Manual Slide Review Abnormal smear PT (9.5-12.1) SECONDS INR Sodium (136-145) mEq/L Potassium (3.5-5.1) mEq/L Chloride (98-107) mEq/L Carbon Dioxide (21-32) mEq/L Anion Gap (5-15) BUN (7-18) mg/dL Creatinine (0.55-1.02) mg/dL Est Cr Clr Drug Dosing mL/min Estimated GFR (MDRD) (>60) mL/min BUN/Creatinine Ratio (14-18) Glucose (80-115) mg/dL Lactic Acid (0.4-2.0) mmol/L Calcium (8.5-10.1) mg/dL Magnesium (1.8-2.4) mg/dl Total Bilirubin (0.2-1.0) mg/dL AST (15-37) U/L ALT (14-59) U/L Alkaline Phosphatase (46-116) U/L Ammonia (11-32) umol/L Troponin I (0.00-0.056) ng/mL Total Protein (6.4-8.2) g/dl Albumin (3.4-5.0) g/dl Globulin gm/dL Albumin/Globulin Ratio (1-2) Lipase (73-393) U/L Ethyl Alcohol (0.00) gm% Blood Type Gel Antibody Screen Crossmatch Med Orders - Current: Current Medications Acetaminophen (Tylenol) 650 mg PO Q4H PRN PRN Reason: Pain/Fever Last Admin: 11/20/18 03:03 Dose: 650 mg Furosemide (Lasix) 40 mg IVPUSH ONETIME ONE Stop: 11/20/18 09:01 Last Admin: 11/20/18 06:55 Dose: 40 mg Sodium Chloride (Normal Saline) 1,000 mls @ 100 mls/hr IV ASDIRECTED BIANCA Norepinephrine Bitartrate 4 mg (/ Dextrose/Water) 250 mls @ 7.5 mls/hr IV TITRATE BIANCA; Protocol Last Titration: 11/20/18 06:33 Dose: 3 mcg/min, 11.25 mls/hr Pantoprazole Sodium 80 mg/ (Sodium Chloride) 100 mls @ 10 mls/hr IV CONTINUOUS BIANCA Octreotide Acetate 500 mcg/ (Sodium Chloride) 500 mls @ 50 mls/hr IV Q10H BIANCA Lactulose (Cephulac) 30 gm PO ONETIME ONE Stop: 11/20/18 09:01 Lorazepam (Ativan) 2 mg IVPUSH Q8H PRN PRN Reason: Seizures Lorazepam (Ativan) 1 - 3 mg IV ASDIRECTED BIANCA; Protocol Discontinued Medications Furosemide (Lasix) Confirm Administered Dose 40 mg .ROUTE .STK-MED ONE Stop: 11/20/18 06:55 Last Admin: 11/20/18 07:40 Dose: Not Given Sodium Chloride (Normal Saline) 1,000 mls @ 1,000 mls/hr IV ASDIRECTED BIANCA Last Admin: 11/19/18 21:50 Dose: 1,000 mls/hr Magnesium Sulfate 2 gm/ Premix 50 mls @ 25 mls/hr IV ONETIME ONE Stop: 11/20/18 03:26 Last Admin: 11/20/18 00:56 Dose: 25 mls/hr Magnesium Sulfate 2 gm/ Premix 50 mls @ 25 mls/hr IV ONETIME ONE Stop: 11/20/18 05:33 Last Admin: 11/20/18 04:36 Dose: 25 mls/hr Sodium Chloride (Normal Saline) 500 mls @ 999 mls/hr IV ONETIME ONE Stop: 11/20/18 06:26 Last Admin: 11/20/18 05:30 Dose: 999 mls/hr Sodium Chloride (Normal Saline) 500 mls @ 999 mls/hr IV .BOLUS ONE Stop: 11/20/18 07:00 Last Admin: 11/20/18 06:10 Dose: 999 mls/hr Pantoprazole Sodium (Protonix Iv) 40 mg IVPUSH Q12H BIANCA Last Admin: 11/20/18 06:31 Dose: 40 mg Consult PN Assessment/Plan Procedures: Procedures ACUTE HEPATITIS PANEL (02/21/14) ASSAY GLUCOSE BLOOD QUANT (01/18/14) ASSAY OF ETHANOL (02/21/14) ASSAY OF FREE THYROXINE (02/21/14) ASSAY OF GGT (02/21/14) ASSAY OF TROPONIN QUANT (10/04/15) ASSAY THYROID STIM HORMONE (10/04/15) CARDIOVASCULAR STRESS TEST (02/11/18) CHEST X-RAY 1 VIEW FRONTAL (10/04/15) COMPLETE CBC W/AUTO DIFF WBC (10/04/15) COMPREHEN METABOLIC PANEL (10/04/15) CT ANGIOGRAPHY CHEST (10/04/15) CT HEAD/BRAIN W/O DYE (10/04/15) DXA BONE DENSITY AXIAL (01/01/17) ECHO EXAM OF ABDOMEN (02/21/14) ELECTROCARDIOGRAM TRACING (10/04/15) EMERGENCY DEPT VISIT (10/04/15) EXTRACRANIAL BILAT STUDY (02/11/18) FIBRIN DEGRADATION QUANT (10/04/15) HEPATIC FUNCTION PANEL (02/21/14) HT MUSCLE IMAGE SPECT MULT (02/11/18) HYDRATION IV INFUSION INIT (10/04/15) LIPID PANEL (01/18/14) PROTHROMBIN TIME (10/04/15) ROUTINE VENIPUNCTURE (10/04/15) THROMBOPLASTIN TIME PARTIAL (10/04/15) TTE W/DOPPLER COMPLETE (02/11/18) URINALYSIS AUTO W/O SCOPE (01/18/14) URINALYSIS AUTO W/SCOPE (10/04/15) VITAMIN B-12 (02/21/14) VITAMIN D 25 HYDROXY (02/21/14) Problem List Initiated/Reviewed/Updated: Yes My Orders Last 24 Hours: My Active Orders 11/20/18 07:15 Octreotide 500 MCG in Normal Saline @ 50 MCG/HR(500ml) Octreotide [SandoSTATIN] 500 mcg Sodium Chloride 0.9% [Normal Saline] 499 ml IV Q10H Pantoprazole [ProTONIX IV] 80 mg Sodium Chloride 0.9% [Normal Saline] 100 ml IV CONTINUOUS dictated the consultation. KATE
[2018-11-20] MEDS ORDERED: Sodium Chloride 0.9% 100 ML ONE (07:52)
[2018-11-20] MEDS ORDERED: Lactulose Soln 10 GM/15 ML 30 ML UD Cup PO ONE (09:00)
[2018-11-20 13:55] VITALS: BP 94/56
--- NOTE | 2018-11-21 07:03 | CR ---
Chest: Portable view of the chest was obtained. Comparison: Prior chest x-ray of 12/06/17. Heart size and mediastinum are normal. Lungs are clear. Bony structures are unremarkable. Lungs appear to be slightly hyperinflated. Impression: 1. Probable emphysematous change. Nothing acute is identified on portable chest x-ray. Diagnostic code #2
--- NOTE | 2018-11-21 07:18 | CONS ---
CONSULTING PHYSICIAN: Rachid Reyez MD DATE OF CONSULTATION: 11/20/2018 HISTORY OF PRESENT ILLNESS: This is a 63-year-old, asked to see concerning the need for colonoscopy, had rectal bleeding and came in through the emergency room. Later, I was called that the patient has been transferred to the ICU and had dropped her pressure into the 50s after she had a vomiting of bright red blood and bloody bowel movement. She was given 2000 mL bolus and her pressure came up, responded to the 40s to 80s and the put on Levophed drip and pressure been stable at 100 systolic. The patient subsequently hemoglobin came back for and she was typed and crossed and has now received at least 1.5 units of blood. Patient's history indicates that she has been in [place] and has come off her medications, been drinking heavy. She has a known history of chronic anemia and esophageal varices due to liver disease with some hepatic encephalopathy, stage 2 kidney disease. She seems to be noncompliant to her medical regime and has had variceal banding in the past. The patient's problems with rectal bleeding began about 4 o'clock at the afternoon of admission. She came into the emergency room about midnight. She has been falling at home and apparently fell and hit the back of her head. PAST MEDICAL HISTORY: The patient's medical problems are that of cirrhosis and history of pancreatitis in the past, history of C diff in the past. She has slightly jaundiced. SOCIAL HISTORY: She has a history of smoking and continues to smoke and drink alcohol. No street drugs. REVIEW OF SYSTEMS: The patient denies any chest pain or shortness of breath, cough, hoarseness, or wheezing. Does feel cold and fatigued. Denies any abdominal pain, generalized aches and pains. MEDICATIONS: Per medication reconciliation form. On Carafate, magnesium, lactulose, complex B, spironolactone, Lunesta, omeprazole, and folic acid. ALLERGIES: Nitrofurantoin and codeine. PHYSICAL EXAMINATION: VITAL SIGNS: Reveals a patient who is alert, able to talk to me and converse. EYES: Slightly jaundiced. Oral cavity healthy. NECK: Supple. LUNGS: Breath sounds are distant. HEART: Rate of about 100, steady. ABDOMEN: Soft. No tenderness, guarding, or rebound. EXTREMITIES: Upper and lower extremities; no angulation or deformities. SKIN: Cool and no angulation. NEURO: No sensorineural deficit. PSYCHIATRIC: Intact. ASSESSMENT: GI bleed probably complicated by cirrhosis, possible varices, gastritis, or ulcers in the upper GI. PLAN: To transfer the patient to the ER. Discussed this at [facility]. Discussed this with Dr. Kurtz and encouraged use of octreotide which will be started along with Protonix bolus and a Protonix drip. Discussed transfer with family and the sense of the critical nature of the situation have recommended air flight. MMODAL /[id number]
== END 2018-11-20 08:45 | DRG 378 ==
LOC: JD.ED 21:00 → JD.MS 11-20 00:36 → JD.ICU 11-20 05:42
PROVIDERS: ADMIT Internal Medicine Cardiovascular Disease; ATTEND Internal Medicine Cardiovascular Disease
PROC: 30233N1 Transfusion of Nonautologous Red Blood Cells into Peripheral Vein, Percutaneous Approach (ICD-10-PCS; principal; 2018-11-20)
DX: K92.2 Gastrointestinal hemorrhage, unspecified (principal); D62 Acute posthemorrhagic anemia; K70.30 Alcoholic cirrhosis of liver without ascites; K72.90 Hepatic failure, unspecified without coma; E86.0 Dehydration; E83.42 Hypomagnesemia; E86.1 Hypovolemia; I95.89 Other hypotension; F10.20 Alcohol dependence, uncomplicated; D63.8 Anemia in other chronic diseases classified elsewhere; F12.10 Cannabis abuse, uncomplicated; I12.9 Hypertensive chronic kidney disease with stage 1 through stage 4 chronic kidney disease, or unspecified chronic kidney disease; N18.2 Chronic kidney disease, stage 2 (mild); I85.00 Esophageal varices without bleeding; K29.70 Gastritis, unspecified, without bleeding; F32.9 Major depressive disorder, single episode, unspecified; R32 Unspecified urinary incontinence; F41.9 Anxiety disorder, unspecified; M81.0 Age-related osteoporosis without current pathological fracture; F17.210 Nicotine dependence, cigarettes, uncomplicated; T47.3X6A Underdosing of saline and osmotic laxatives, initial encounter; Z91.128 Patient's intentional underdosing of medication regimen for other reason; Z91.14 Patient's other noncompliance with medication regimen; Z88.1 Allergy status to other antibiotic agents; Z88.5 Allergy status to narcotic agent; Z79.899 Other long term (current) drug therapy
CPT/HCPCS: 36415; 51702; 71045; 71045-26; 80048; 80053; 82140; 83605; 83690; 83735; 84484; 85025; 85610; 93005; 93010; 96360; 99285; 99285-25; A9270-GY; C9113; G0480; J1940; J2354-GY; J3475; J7030; J7040; J7060; P9016

== ENCOUNTER 2019-05-26 15:49 | Emergency (ER) | payer MEDICAID ==
[2019-05-26 16:26] VITALS: BP 131/76; PULSE 102
--- NOTE | 2019-05-26 17:12 | EDM.PDOC ---
ED HPI GENERAL MEDICAL PROBLEM - General Chief Complaint: Skin Complaint Stated Complaint: L FOOT PAIN Time Seen by Provider: 05/26/19 16:40 - History of Present Illness INITIAL COMMENTS - FREE TEXT/NARRATIVE: 63-year-old female comes in with a rash on her legs. This is been an ongoing problem she's been put on different creams for this she' s been told it's gout. The patient has advanced liver disease and is doing well with this at this point however she retains fluid in her lower extremities the patient started using support hose today but is a little upset over the rash on her lower legs that has been present for quite some time. She denies any fevers chills she gets some intermittent redness there on her right leg she developed 2 blisters yesterday and they popped today draining off-colored clear fluid. Treatments STUNNER: Reports: Other (see below) Other Treatments STUNNER: none Left Lower Leg Pain Score (Numeric/FACES): 5 - Related Data Allergies Allergy/AdvReac Type Severity Reaction Status Date / Time nitrofurantoin Allergy Rash Verified 05/02/19 15:08 [From Macrobid] nitrofurantoin Allergy Rash Verified 05/02/19 15:08 macrocrystalline [From Macrobid] codeine AdvReac Upset Verified 05/02/19 15:08 Stomach Home Meds: Home Meds Folic Acid 1 mg PO DAILY 10/04/15 [History] Venlafaxine HCl [Venlafaxine ER] 150 mg PO DAILY 10/04/15 [History] Magnesium Oxide 400 mg PO TID 12/24/17 [History] B Complex W-C No.20/Folic Acid [Triphrocaps Softgel] 1 tab PO DAILY 11/20/18 [ History] Lactulose 30 ml PO TID #14 bottle 11/20/18 [Rx] Spironolactone [Aldactone] 25 mg PO DAILY 11/20/18 [History] Sucralfate 1 gm PO QID 11/20/18 [History] Spironolactone [Aldactone] 25 mg PO BID #30 tab 05/26/19 [Rx] Past Medical History HEENT History: Reports: Cataract Cardiovascular History: Reports: None Other Cardiovascular History: Plaque build up in the carotid arteries. Respiratory History: Reports: None Gastrointestinal History: Reports: Cirrhosis, Pancreatitis, Other (See Below) Other Gastrointestinal History: Possible cirrhosis Genitourinary History: Reports: Urinary Incontinence WEB DESIGN SPECIALIST History: Reports: Other (See Below) Other WEB DESIGN SPECIALIST History: Musculoskeletal History: Reports: None Neurological History: Reports: None Psychiatric History: Reports: Addiction, Anxiety Other Psychiatric History: alcohol, Endocrine/Metabolic History: Reports: Osteoporosis Hematologic History: Reports: Anemia, Iron Deficiency Immunologic History: Reports: None Oncologic (Cancer) History: Reports: None Dermatologic History: Reports: Other (See Below) Other Dermatologic History: biopsy to L ankle - Infectious Disease History Infectious Disease History: Reports: C-Difficile, Chicken Pox, Influenza, Measles, Mumps - Past Surgical History Head Surgeries/Procedures: Reports: None HEENT Surgical History: Reports: Cataract Surgery Other HEENT Surgeries/Procedures: wears glasses for distance/driving Cardiovascular Surgical History: Reports: None GI Surgical History: Reports: Colonoscopy, EGD, Other (See Below) Other GI Surgeries/Procedures: Pt had bleeding in the stomach in November 2018 and had to get 7-8 units of blood and had to have her stomach clamped to stop the bleeding. Pt has a hx of ulcers and esophageal varices. 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 No: No Edema Extremities: Pedal Edema (He has 1-2+ pitting edema in her lower extremities from her mid calves on down into her feet) Neurological: Alert, Oriented, Normal Cognition Skin: Other (Stasis dermatitis of her lower extremities and her feet. This is patchy does not cover all the skin but the areas that she is concerned with she' s had 2 ruptured blisters on the medial side of her right lower leg) Course - Vital Signs Last Recorded V/S: Last Vital Signs Temp 37.5 C 05/26/19 16:22 Pulse 102 H 05/26/19 16:22 Resp 20 05/26/19 16:22 BP 131/76 05/26/19 16:22 Pulse Ox 95 05/26/19 16:22 - Orders/Labs/Meds Labs: Laboratory Tests 05/26/19 Range/Units 17:54 Sodium 138 (136-145) mEq/L Potassium 3.5 (3.5-5.1) mEq/L Chloride 108 H (98-107) mEq/L Carbon Dioxide 19 L (21-32) mEq/L Anion Gap 14.5 (5-15) BUN 20 H (7-18) mg/dL Creatinine 1.0 (0.55-1.02) mg/dL Est Cr Clr Drug Dosing 48.03 mL/min Estimated GFR (MDRD) 56 (>60) mL/min BUN/Creatinine Ratio 20.0 H (14-18) Glucose 107 (80-115) mg/dL Calcium 9.0 (8.5-10.1) mg/dL - Re-Assessments/Exams Free Text/Narrative Re-Assessment/Exam: 05/26/19 18:55 I met have the patient increase her spironolactone from 25 mg a day to 50 mg a day. This will help mobilize some of the extra fluid she's caring around in her lower extremities. Her rash in the lower extremities will not get better until the edema is better. I have recommended that she continue to wear the support hose that she started to wear today. Departure - Departure Time of Disposition: 18:56 Disposition: DC[facility] to [facility] 05 Clinical Impression: Lower extremity edema, Stasis dermatitis of both legs - Discharge Information Prescriptions: Spironolactone [Aldactone] 25 mg PO BID #30 tab Instructions: Contact Dermatitis Referrals: Leighann Wayne MD [Primary Care Provider] - Forms: ED Department Discharge Additional Instructions: Return to the emergency room with any questions problems or worsening symptoms. Use a good skin moisturizer over your lower legs and your feet. Continue to use her support hose to go to your knees. Increase your spironolactone to one twice daily. Follow-up with your regular doctor next week.
== END 2019-05-26 19:22 | disposition home or self-care (01) ==
LOC: JD.ED 15:49
DX: I87.2 Venous insufficiency (chronic) (peripheral) (principal); F41.9 Anxiety disorder, unspecified; Z88.8 Allergy status to other drugs, medicaments and biological substances; Z88.5 Allergy status to narcotic agent; Z79.899 Other long term (current) drug therapy
CPT/HCPCS: 36415; 80048; 99283; 99284

== ENCOUNTER 2022-05-06 08:31 | Emergency (ER) | payer MEDICARE, BC, MEDICAID ==
[2022-05-06] MEDS ORDERED: Ondansetron 4 MG/2 ML SDV ONE (08:33)
[2022-05-06] MEDS ORDERED: Succinylcholine 200 MG/10 ML MDV ONE (08:44)
[2022-05-06] MEDS ORDERED: Ketamine 500 mg/10 ML MDV ONE (08:44)
[2022-05-06] MEDS ORDERED: propofoL 100 ML ONE (08:52)
[2022-05-06] MEDS ORDERED: Piperacillin/Tazobactam 4.5 GM in Sodium Chloride 0.9% 100 ML IV ONE (09:25)
[2022-05-06] MEDS ORDERED: levETIRAcetam 2,000 MG in Sodium Chloride 0.9% 100 ML IV ONE ×2 (09:30→09:45)
[2022-05-06] MEDS ORDERED: Ondansetron 4 MG/2 ML SDV IVPUSH ONE (09:31)
[2022-05-06] MEDS ORDERED: propofoL 100 ML IV SCH (09:45)
[2022-05-06 09:49] LABS: ESTIMATED GFR 46 mL/min (>60)
[2022-05-06] MEDS ORDERED: niCARdipine HCl 25 MG in Sodium Chloride 0.9% 250 ML IV SCH (10:15)
[2022-05-06 11:05] VITALS: BP 107/95; PULSE 115
== END 2022-05-06 10:35 ==
LOC: JD.ED 08:31
DX: I62.9 Nontraumatic intracranial hemorrhage, unspecified (principal); Z88.8 Allergy status to other drugs, medicaments and biological substances; Z88.5 Allergy status to narcotic agent; Z79.899 Other long term (current) drug therapy
CPT/HCPCS: 31500; 36415; 36600; 43752; 51702; 70450; 71045; 72125; 80053; 80306; 81001; 82803; 83605; 85025; 85379; 87040; 93005; 96374; 96375; 99285; J0330; J1953; J2405; J2704; J3490